=== PATIENT | female | born 1955 | race Caucasian/White ===

== ENCOUNTER 2023-08-15 15:39 | Inpatient (IN) | payer MEDICARE, MEDICAID, SELFPAY ==
[2023-08-15] VITALS (38 sets, daily range): BP systolic 91–124; BP diastolic 56–89; PULSE 82–108; RESP 13–27; TEMP 36.6–36.9; O2SAT 60–97; BMI 21.2
--- NOTE | 2023-08-15 15:41 | XRR_ITS ---
PROCEDURE INFORMATION: Exam: XR Chest Exam date and time: 08/15/2023 4:03 PM Age: 67 years old Clinical indication: Cough and dyspnea; Additional info: Dyspnea/cough TECHNIQUE: Imaging protocol: Radiologic exam of the chest. Views: 1 view. COMPARISON: No relevant prior studies available. FINDINGS: Lungs: Unremarkable. No consolidation. Pleural spaces: Unremarkable. No pleural effusion. No pneumothorax. Heart/Mediastinum: Unremarkable. No cardiomegaly. Bones/joints: No acute findings. XR/XR chest 1V portable [id number] IMPRESSION: No acute findings.
--- NOTE | 2023-08-15 15:48 | ED_ITS ---
Documented by User: Dewey Francisco DO 08/16/23 06:11 HPI - Altered Mental Status 2 General: Chief Complaint: Altered Mental Status Stated Complaint: AMS Time Seen by Provider: 08/15/23 15:40 Source: patient and EMS Mode of arrival: EMS History of Present Illness: 59-year-old female presents to the emerg ency room after EMS was called she was unresponsive at her home. EMS gave Narcan and she aroused became combative. EMS reports that previously she was on high hospice and then took all taken off of it. She has a history of heart failure and diabetes most of which we put together from the medicines that she had in a bag there is no past medical history in our charts and she is not able to tell us anything she was able to tell us that she seen a doctor to mark at the [facility]. We are able to find that she sees [place] [facility] [place] mady trying to get more history from there were not able to get any more history from her because she is not able to speak and only asked her to write she writes and almost unintelligible cursive. She did manage to right [facility] and Narcan. MD complaint: altered mental status Onset (ago): unknown Review of Systems 2 General: Reports: ROS unobtainable due to medical condition PFSH ED 2 PFSH: Medical History History of hyperlipidemia History of hypertension History of type 2 diabetes mellitus Laryngeal cancer Surgical History History of left hip replacement History of laryngectomy Family History Sister CAD (coronary artery disease) Social History (Updated 08/15/23 @ 20:15 by Vijay Tipton MD) Smoking and tobacco/nicotine status: former use of tobacco/nicotine Alcohol intake: never Substance/Drug Use: never Physical Exam 2 Const: GENERAL APPEARANCE: cooperative and comfortable O RIENTATION/CONSCIOUSNESS: Yes awake HENMT: COMMON NORMALS: normocephalic, atraumatic and hearing grossly normal bilaterally HEAD & SCALP: normocephalic and atraumatic Resp: COMMON NORMALS: normal respiratory effort, No retractions, No use of accessory muscles and clear to auscultation bilaterally AUSCULTATION: clear to auscultation bilaterally Cardio: COMMON NORMALS: regular rhythm and No murmurs present (Cardio) R ATE: tachycardic RHYTHM: regular rhythm GI: COMMON NORMALS: Soft to palpation and No hepatosplenomegaly present A USCULTATION: Yes normoactive bowel sounds PALPATION: Yes Soft to palpation, No Tenderness to palpation present (GI), No Guarding due to palpation present (GI) and Yes No hepatosplenomegaly present Extremity: COMMON NORMALS: normal to inspection, capillary refill normal, no clubbing, cyanosis or edema, no calf tenderness and no pedal edema Skin: COMMON NORMALS: no rashes or lesions noted GENERAL SKIN EXAM: no rashes or lesions noted Course 2 Vital Signs: Vital signs: Vital Signs Temperature 97.6 F 08/16/23 04:00 Pulse Rate 91 08/16/23 04:41 Respiratory Rate 16 08/16/23 04:00 Blood Pressure 99/62 08/16/23 04:00 Pulse Oximetry 95 08/16/23 04:00 Oxygen Delivery Me thod Room Air 08/15/23 23:43 Fraction of Inspir ed Oxygen 21 08/15/23 22:05 MDM - Altered Mental Status Medical Decision Making Care signed out to Dr. Best at change of shift. See final notes for diagnosis and disposition. Patient was altered drug screen and urinalysis were ordered. She has renal failure and is unknown if this is acute or chronic so CT of the abdomen was done. CT had concern for acute cholecystitis, however she has no pain in her right upper quadrant no elevation in her LFTs. She does have a UTI so Rocephin was given. She is also been given a liter of normal saline bolus. Her mentation seems much improved when I go into the room to talk to her she is eating food and the CT also said she had some subacute pelvic fractures and an acetabular fracture. She does point to some pain in her back but no real acetabular pain. She is in no distress at this time. Consultation: I spoke with Dr. Hussein about the patient. He reviewed the films and feels this would be a nonoperative type fracture. Assessment and plan: UTI Urinary tract infection Acute encephalopathy -I discussed the patient with the hospitalist on-call who is admitting the patient. - Discussed findings and plan with patient. Answered any questions. - All laboratory values were reviewed and interpreted personally by myself, the ER physician - All imaging was reviewed and interpreted personally by myself, the ER physician. - Evaluation and treatment of this problem were appropriate in the emergency setting Lab Data 08/16/23 03:02 08/16/23 03:02 Radiology Impressions Chest X-Ray 08/15/23 15:41 IMPRESSION: No acute findings. Head CT 08/15/23 16:09 IMPRESSION: 1. No acute intracranial abnormality. Abdomen/Pelvis CT 08/15/23 18:01 IMPRESSION: 1. Suspected early acute cholecystitis. Correlation with biliary labs and right upper quadrant may be helpful. 2. Subacute periprosthetic fracture of the left acetabulum. Orthopedic evaluation is recommended. 3. Subacute displaced fractures of the superior and inferior pubic rami on the left as well as bilateral sacral insufficiency fractures. Laboratory Results WBC 18.38 10^3/uL (3.29-11.43) H 08/15/23 17:15 RBC 4.18 10^6/uL (3.85-5.65) 08/15/23 17:15 Hgb 12.60 g/dL (11.27-16.99) 08/15/23 17:15 Hct 38.2 % (36-47) 08/15/23 17:15 MCV 91.4 fl (85-98) 08/15/23 17:15 MCH 30.1 pg (27-33) 08/15/23 17:15 MCHC 33.0 g/dL (30-55) 08/15/23 17:15 RDW 14.8 % (12.1-15.1) 08/15/23 17:15 Plt Count 172 10^3/cmm (157-399) 08/15/23 17:15 MPV 11.5 fL (7.4-10.4) H 08/15/23 17:15 Neut % (Auto) 85.5 % 08/15/23 17:15 Lymph % (Auto) 4.5 % 08/15/23 17:15 Avery % (Auto) 5.6 % 08/15/23 17:15 Eos % (Auto) 0.3 % 08/15/23 17:15 Baso % (Auto) 0.2 % 08/15/23 17:15 Neut # (Auto) 15.72 10^3/uL (1.8-7.7) H 08/15/23 17:15 Lymph # (Auto) 0.8 10^3/uL (0.8-4.8) 08/15/23 17:15 Avery # (Auto) 1.0 10^3/uL (0.2-0.9) H 08/15/23 17:15 Eos # (Auto) 0.1 10^3/uL (0.0-0.8) 08/15/23 17:15 Baso # (Auto) 0.0 10^3/uL (0.0-0.1) 08/15/23 17:15 Nucleated RBC % (auto) 0 % 08/15/23 17:15 Nucleated RBCs # 0.0 /100WBC 08/15/23 17:15 Sodium 137 mmol/L (136-145) 08/15/23 17:15 Potassium 4.7 mmol/L (3.5-5.1) 08/15/23 17:15 Chloride 97 mmol/L (98-107) L 08/15/23 17:15 Carbon Dioxide 23 mmol/L (22-29) 08/15/23 17:15 Anion Gap 21.7 (5-19) H 08/15/23 17:15 BUN 45 mg/dL (8-23) H 08/15/23 17:15 Creatinine 2.7 mg/dL (0.5-0.9) H 08/15/23 17:15 GFR Calculation 17.5 mL/min (90-130) L 08/15/23 17:15 Glucose 178 mg/dL (65-115) H 08/15/23 17:15 POC Glucose 124 mg/dL (70-110) H 08/15/23 16:08 Estimat Average Glucose 189 08/15/23 17:15 Hemoglobin A1c 8.2 % (4.0-6.0) H 08/15/23 17:15 Calculated Osmolality 300 mOsm/kg (285-295) H 08/15/23 17:15 Calcium 8.3 mg/dL (8.5-10.5) L 08/15/23 17:15 Phosphorus 4.4 mg/dL (2.5-4.5) 08/15/23 19:12 Magnesium 1.9 mg/dL (1.7-2.3) 08/15/23 19:12 Total Bilirubin 0.5 mg/dL (0.15-1.2) 08/15/23 17:15 AST 18 U/L (0-32) 08/15/23 17:15 ALT 12 U/L (0-33) 08/15/23 17:15 Alkaline Phosphatase 323 U/L (35-105) H 08/15/23 17:15 Creatine Kinase 70 U/L (26-192) 08/15/23 19:12 Troponin T Baseline < 6 ng/L (0-10) 08/15/23 17:15 Troponin T 120 Minute 6.00 ng/L (0-10) 08/15/23 19:12 Delta Troponin T 0.77801 ABS# (0-10) 08/15/23 19:12 C-Reactive Protein 534.4 mg/L (0.0-4.9) H 08/15/23 19:12 Total Protein 6.9 g/dL (6.6-8.7) 08/15/23 17:15 Albumin 4.1 g/dL (3.5-5.2) 08/15/23 17:15 Globulin 2.8 g/dL (1.3-4.6) 08/15/23 17:15 Procalcitonin 1.31 ng/mL (0-0.5) H 08/15/23 19:12 TSH 4.31 uIU/mL (0.27-4.20) H 08/15/23 19:12 Urine Color Dark yellow (Yellow) 08/15/23 18:07 Urine Appearance Hazy (CLEAR) A 08/15/23 18:07 Urine pH 5 (5-7) 08/15/23 18:07 Ur Specific Reform 1.015 (1.005-1.030) 08/15/23 18:07 Urine Protein Neg (Negative) 08/15/23 18:07 Urine Glucose (UA) Norm (Normal) 08/15/23 18:07 Urine Ketones Negative (Negative) 08/15/23 18:07 Urine Blood Neg (Negative) 08/15/23 18:07 Urine Nitrate Negative (Negative) 08/15/23 18:07 Urine Bilirubin 1+ (Negative) H 08/15/23 18:07 Urine Urobilinogen Norm mg/dL (Negative) 08/15/23 18:07 Ur Leukocyte Esterase 2+ (Negative) H 08/15/23 18:07 Urine RBC 0-4 /hpf (0-2) H 08/15/23 18:07 Urine WBC 15-25 /hpf (0-5) H 08/15/23 18:07 Ur Squamous Epith Cells 15-25 /hpf (0-5) H 08/15/23 18:07 Amorphous Sediment Not Reportable 08/15/23 18:07 Urine Bacteria 1+ /hpf (NONE) H 08/15/23 18:07 Urine Opiates Screen Positive ng/mL (Negative) H 08/15/23 18:07 Ur Barbiturates Screen Negative ng/mL (Negative) 08/15/23 18:07 Ur Phencyclidine Scrn Negative ng/mL (Negative) 08/15/23 18:07 Ur Amphetamines Screen Negative ng/mL (Negative) 08/15/23 18:07 U Benzodiazepines Scrn Positive ng/mL (Negative) H 08/15/23 18:07 Urine Cocaine Screen Negative ng/mL (Negative) 08/15/23 18:07 U Marijuana (THC) Screen Negative ng/mL (Negative) 08/15/23 18:07 Ethyl Alcohol < 10 mg/dL (0-10) 08/15/23 19:12 Serum Ketones Negative (Negative) 08/15/23 17:15 Discharge Plan Discharge Patient Disposition: Admitted As Inpatient Admit Provider: Vijay Tipton Clinical Impression: Urinary tract infection, Encephalopathy acute, Renal failure Condition: Stable Coding Level of Care Code ED Belt Buckle Maker for Chg Fwd Documented by User: Mi Best MD 08/15/23 19:39 HPI - Altered Mental Status 2 General: Chief Complaint: Altered Mental Status Stated Complaint: AMS Time Seen by Provider: 08/15/23 15:40 PFSH ED 2 PFSH: Medical History History of hyperlipidemia History of hypertension History of type 2 diabetes mellitus Laryngeal cancer Surgical History History of left hip replacement History of laryngectomy Family History Sister CAD (coronary artery disease) Social History (Updated 08/15/23 @ 20:15 by Vijay Tipton MD) Smoking and tobacco/nicotine status: former use of tobacco/nicotine Alcohol intake: never Substance/Drug Use: never Course 2 Vital Signs: Vital signs: Vital Signs Temperature 97.6 F 08/16/23 04:00 Pulse Rate 91 08/16/23 04:41 Respiratory Rate 16 08/16/23 04:00 Blood Pressure 99/62 08/16/23 04:00 Pulse Oximetry 95 08/16/23 04:00 Oxygen Delivery Me thod Room Air 08/15/23 23:43 Fraction of Inspir ed Oxygen 21 08/15/23 22:05 MDM - Altered Mental Status Medical Decision Making Patient was altered drug screen and urinalysis were ordered. She has renal failure and is unknown if this is acute or chronic so CT of the abdomen was done. CT had concern for acute cholecystitis, however she has no pain in her right upper quadrant no elevation in her LFTs. She does have a UTI so Rocephin was given. She is also been given a liter of normal saline bolus. Her mentation seems much improved when I go into the room to talk to her she is eating food and the CT also said she had some subacute pelvic fractures and an acetabular fracture. She does point to some pain in her back but no real acetabular pain. She is in no distress at this time. Consultation: I spoke with Dr. Hussein about the patient. He reviewed the films and feels this would be a nonoperative type fracture. Assessment and plan: UTI Urinary tract infection Acute encephalopathy -I discussed the patient with the hospitalist on-call who is admitting the patient. - Discussed findings and plan with patient. Answered any questions. - All laboratory values were reviewed and interpreted personally by myself, the ER physician - All imaging was reviewed and interpreted personally by myself, the ER physician. - Evaluation and treatment of this problem were appropriate in the emergency setting Lab Data 08/16/23 03:02 08/16/23 03:02 Radiology Impressions Chest X-Ray 08/15/23 15:41 IMPRESSION: No acute findings. Head CT 08/15/23 16:09 IMPRESSION: 1. No acute intracranial abnormality. Abdomen/Pelvis CT 08/15/23 18:01 IMPRESSION: 1. Suspected early acute cholecystitis. Correlation with biliary labs and right upper quadrant may be helpful. 2. Subacute periprosthetic fracture of the left acetabulum. Orthopedic evaluation is recommended. 3. Subacute displaced fractures of the superior and inferior pubic rami on the left as well as bilateral sacral insufficiency fractures. Laboratory Results WBC 18.38 10^3/uL (3.29-11.43) H 08/15/23 17:15 RBC 4.18 10^6/uL (3.85-5.65) 08/15/23 17:15 Hgb 12.60 g/dL (11.27-16.99) 08/15/23 17:15 Hct 38.2 % (36-47) 08/15/23 17:15 MCV 91.4 fl (85-98) 08/15/23 17:15 MCH 30.1 pg (27-33) 08/15/23 17:15 MCHC 33.0 g/dL (30-55) 08/15/23 17:15 RDW 14.8 % (12.1-15.1) 08/15/23 17:15 Plt Count 172 10^3/cmm (157-399) 08/15/23 17:15 MPV 11.5 fL (7.4-10.4) H 08/15/23 17:15 Neut % (Auto) 85.5 % 08/15/23 17:15 Lymph % (Auto) 4.5 % 08/15/23 17:15 Avery % (Auto) 5.6 % 08/15/23 17:15 Eos % (Auto) 0.3 % 08/15/23 17:15 Baso % (Auto) 0.2 % 08/15/23 17:15 Neut # (Auto) 15.72 10^3/uL (1.8-7.7) H 08/15/23 17:15 Lymph # (Auto) 0.8 10^3/uL (0.8-4.8) 08/15/23 17:15 Avery # (Auto) 1.0 10^3/uL (0.2-0.9) H 08/15/23 17:15 Eos # (Auto) 0.1 10^3/uL (0.0-0.8) 08/15/23 17:15 Baso # (Auto) 0.0 10^3/uL (0.0-0.1) 08/15/23 17:15 Nucleated RBC % (auto) 0 % 08/15/23 17:15 Nucleated RBCs # 0.0 /100WBC 08/15/23 17:15 Sodium 137 mmol/L (136-145) 08/15/23 17:15 Potassium 4.7 mmol/L (3.5-5.1) 08/15/23 17:15 Chloride 97 mmol/L (98-107) L 08/15/23 17:15 Carbon Dioxide 23 mmol/L (22-29) 08/15/23 17:15 Anion Gap 21.7 (5-19) H 08/15/23 17:15 BUN 45 mg/dL (8-23) H 08/15/23 17:15 Creatinine 2.7 mg/dL (0.5-0.9) H 08/15/23 17:15 GFR Calculation 17.5 mL/min (90-130) L 08/15/23 17:15 Glucose 178 mg/dL (65-115) H 08/15/23 17:15 POC Glucose 124 mg/dL (70-110) H 08/15/23 16:08 Estimat Average Glucose 189 08/15/23 17:15 Hemoglobin A1c 8.2 % (4.0-6.0) H 08/15/23 17:15 Calculated Osmolality 300 mOsm/kg (285-295) H 08/15/23 17:15 Calcium 8.3 mg/dL (8.5-10.5) L 08/15/23 17:15 Phosphorus 4.4 mg/dL (2.5-4.5) 08/15/23 19:12 Magnesium 1.9 mg/dL (1.7-2.3) 08/15/23 19:12 Total Bilirubin 0.5 mg/dL (0.15-1.2) 08/15/23 17:15 AST 18 U/L (0-32) 08/15/23 17:15 ALT 12 U/L (0-33) 08/15/23 17:15 Alkaline Phosphatase 323 U/L (35-105) H 08/15/23 17:15 Creatine Kinase 70 U/L (26-192) 08/15/23 19:12 Troponin T Baseline < 6 ng/L (0-10) 08/15/23 17:15 Troponin T 120 Minute 6.00 ng/L (0-10) 08/15/23 19:12 Delta Troponin T 0.93275 ABS# (0-10) 08/15/23 19:12 C-Reactive Protein 534.4 mg/L (0.0-4.9) H 08/15/23 19:12 Total Protein 6.9 g/dL (6.6-8.7) 08/15/23 17:15 Albumin 4.1 g/dL (3.5-5.2) 08/15/23 17:15 Globulin 2.8 g/dL (1.3-4.6) 08/15/23 17:15 Procalcitonin 1.31 ng/mL (0-0.5) H 08/15/23 19:12 TSH 4.31 uIU/mL (0.27-4.20) H 08/15/23 19:12 Urine Color Dark yellow (Yellow) 08/15/23 18:07 Urine Appearance Hazy (CLEAR) A 08/15/23 18:07 Urine pH 5 (5-7) 08/15/23 18:07 Ur Specific Reform 1.015 (1.005-1.030) 08/15/23 18:07 Urine Protein Neg (Negative) 08/15/23 18:07 Urine Glucose (UA) Norm (Normal) 08/15/23 18:07 Urine Ketones Negative (Negative) 08/15/23 18:07 Urine Blood Neg (Negative) 08/15/23 18:07 Urine Nitrate Negative (Negative) 08/15/23 18:07 Urine Bilirubin 1+ (Negative) H 08/15/23 18:07 Urine Urobilinogen Norm mg/dL (Negative) 08/15/23 18:07 Ur Leukocyte Esterase 2+ (Negative) H 08/15/23 18:07 Urine RBC 0-4 /hpf (0-2) H 08/15/23 18:07 Urine WBC 15-25 /hpf (0-5) H 08/15/23 18:07 Ur Squamous Epith Cells 15-25 /hpf (0-5) H 08/15/23 18:07 Amorphous Sediment Not Reportable 08/15/23 18:07 Urine Bacteria 1+ /hpf (NONE) H 08/15/23 18:07 Urine Opiates Screen Positive ng/mL (Negative) H 08/15/23 18:07 Ur Barbiturates Screen Negative ng/mL (Negative) 08/15/23 18:07 Ur Phencyclidine Scrn Negative ng/mL (Negative) 08/15/23 18:07 Ur Amphetamines Screen Negative ng/mL (Negative) 08/15/23 18:07 U Benzodiazepines Scrn Positive ng/mL (Negative) H 08/15/23 18:07 Urine Cocaine Screen Negative ng/mL (Negative) 08/15/23 18:07 U Marijuana (THC) Screen Negative ng/mL (Negative) 08/15/23 18:07 Ethyl Alcohol < 10 mg/dL (0-10) 08/15/23 19:12 Serum Ketones Negative (Negative) 08/15/23 17:15 All radiology interpretation(s) finalized by discharge Discharge Plan Discharge Patient Disposition: Admitted As Inpatient Admit Provider: Vijay Tipton Clinical Impression: Urinary tract infection, Encephalopathy acute, Renal failure Condition: Stable Coding Level of Care Code ED Belt Buckle Maker for Shayna De La Paz
--- NOTE | 2023-08-15 15:50 | ECG_ITS ---
[facility] Test Date: 2023-08-15 Pat Name: Ruth Shen Department: Room: Gender: Female Archival Records Clerk: : 1955 Requested By: Dewey Davis Order Number: [id number] Delilah MD: Cecil Smith M.D. Measurements Intervals [place] Rate: 108 P: 56 CA: 169 QRS: 72 QRSD: 85 T: 57 QT: 362 QTc: 485 Interpretive Statements SINUS TACHYCARDIA LOW QRS VOLTAGE IN PRECORDIAL LEADS [QRS DEFLECTION < 1.0 mV IN CHEST LEADS] ABNORMAL RHYTHM ECG No previous ECG available for comparison Electronically Signed On 08-15-2023 23:21:54 CDT by Cecil Smith M.D. [id number]
--- NOTE | 2023-08-15 16:09 | CTR_ITS ---
PROCEDURE INFORMATION: Exam: CT Head Without Contrast Exam date and time: 08/15/2023 4:28 PM Age: 67 years old Clinical indication: Altered mental status/memory loss; Additional info: AMS TECHNIQUE: Imaging protocol: Computed tomography of the head without contrast. Radiation optimization: All CT scans at this facility use at least one of these dose optimization techniques: automated exposure control; mA and/or kV adjustment per patient size (includes targeted exams where dose is matched to clinical indication); or iterative reconstruction. COMPARISON: No relevant prior studies available. RADIATION DOSE METRICS: Total DLP (mGy-cm): 1068 FINDINGS: Brain: Sequela of moderate chronic microvascular ischemic changes with periventricular and deep white matter hypoattenuation. Chronic right basal ganglia lacunar infarct versus dilated perivascular space. Butler-white differentiation is otherwise maintained. No evidence of intra-axial or extra-axial hemorrhage. No mass effect or midline shift. Basilar cisterns are patent. Cerebral ventricles: No hydrocephalus. Paranasal sinuses: The visualized paranasal sinuses are well aerated. Mastoid air cells: The visualized mastoids and middle ears are clear. Bones: Unremarkable. No acute fracture. Soft tissues: No gross soft tissue abnormality. CT/CT head wo con* [id number] IMPRESSION: 1. No acute intracranial abnormality.
[2023-08-15 16:11] LABS: Glucose Point of Care 124 mg/dL (70-110)
[2023-08-15 17:27] LABS: Basophils % 0.2 %; Eosinophils # 0.1 10^3/uL (0.0-0.8); Eosinophils % 0.3 %; Hematocrit 38.2 % (36-47); Lymphocytes # 0.8 10^3/uL (0.8-4.8); Lymphocytes % 4.5 %; Mean Corpuscular Hemoglobin 30.1 pg (27-33); Mean Corpuscular Volume 91.4 fl (85-98); Mean Platelet Volume 11.5 fL (7.4-10.4); Monocytes % 5.6 %; Neutrophils # 15.72 10^3/uL (1.8-7.7); Neutrophils % 85.5 %; Nucleated Red Blood Cells % 0 %; Platelet Count 172 10^3/cmm (157-399); Red Blood Count 4.18 10^6/uL (3.85-5.65); Red Cell Distribution Width 14.8 % (12.1-15.1); White Blood Count 18.38 10^3/uL (3.29-11.43)
[2023-08-15 17:43] LABS: Troponin(5th) Baseline < 6 ng/L (0-10)
--- NOTE | 2023-08-15 17:51 | ECG_ITS ---
[facility] Test Date: 2023-08-15 Pat Name: Ruth Shen Department: Room: Gender: Female Manpower Development Specialist Manager: : 1955 Requested By: Dewey Davis Order Number: [id number] Delilah MD: Cecil Smith M.D. Measurements Intervals [place] Rate: 90 P: 54 MS: 171 QRS: 60 QRSD: 98 T: 44 QT: 407 QTc: 499 Interpretive Statements SINUS RHYTHM LOW QRS VOLTAGE IN PRECORDIAL LEADS [QRS DEFLECTION < 1.0 mV IN CHEST LEADS] Compared to ECG 08/15/2023 15:50:47 Sinus tachycardia no longer present Electronically Signed On 08-15-2023 23:23:54 CDT by Cecil Smith M.D. [id number]
[2023-08-15 17:55] LABS: Alanine Aminotransferase 12 U/L (0-33); Albumin Level 4.1 g/dL (3.5-5.2); Alkaline Phosphatase 323 U/L (35-105); Anion Gap 21.7 (5-19); Aspartate Amino Transferase 18 U/L (0-32); Blood Urea Nitrogen 45 mg/dL (8-23); Calcium 8.3 mg/dL (8.5-10.5); Carbon Dioxide 23 mmol/L (22-29); Chloride 97 mmol/L (98-107); Creatinine Clr Calc Pharmacy 20.0667; Globulin 2.8 g/dL (1.3-4.6); Glomerular Filtration Rate 17.5 mL/min (90-130); Glucose 178 mg/dL (65-115); Osmolality Calculated 300 mOsm/kg (285-295); Potassium 4.7 mmol/L (3.5-5.1); Sodium 137 mmol/L (136-145); Total Bilirubin 0.5 mg/dL (0.15-1.2); Total Protein 6.9 g/dL (6.6-8.7)
--- NOTE | 2023-08-15 18:01 | CTR_ITS ---
PROCEDURE INFORMATION: Exam: CT Abdomen And Pelvis Without Contrast Exam date and time: 08/15/2023 6:17 PM Age: 67 years old Clinical indication: Screening exam; Other: Acute kidney injury TECHNIQUE: Imaging protocol: Computed tomography of the abdomen and pelvis without contrast. Radiation optimization: All CT scans at this facility use at least one of these dose optimization techniques: automated exposure control; mA and/or kV adjustment per patient size (includes targeted exams where dose is matched to clinical indication); or iterative reconstruction. COMPARISON: CR XR chest 1V portable [id number] 08/15/2023 4:03 PM RADIATION DOSE METRICS: Total DLP (mGy-cm): 420.01 FINDINGS: Lungs: Subsegmental bibasilar atelectasis. The visualized lung bases are otherwise clear. Diaphragm: No evidence of diaphragmatic defect. Liver: No evidence of focal hepatic lesion within limitation of a noncontrast exam. Gallbladder and bile ducts: Gallbladder is distended with mild wall thickening and pericholecystic haziness suspicious for acute cholecystitis. No evidence of intra-hepatic or extra-hepatic biliary dilatation. Pancreas: Grossly unremarkable. Spleen: Grossly unremarkable. Adrenal glands: Grossly unremarkable. Kidneys and ureters: No gross renal parenchymal abnormality. No evidence of hydronephrosis or ureteral stone. Stomach and bowel: Few scattered colonic diverticula without evidence of acute diverticulitis. No evidence of bowel obstruction or perienteric inflammatory changes. Appendix: Normal appendix. Intraperitoneal space: No evidence of free air or fluid collection. Vasculature: Extensive atherosclerosis without evidence of aneurysmal dilitation of abdominal aorta. Lymph nodes: No evidence of adenopathy. Urinary bladder: Grossly unremarkable within limitations of beam hardening artifact. Reproductive: Grossly unremarkable. Bones/joints: Subacute displaced superior and inferior pubic ramus fractures. The left superior pubic ramus fracture extends into the anterior column of the acetabulum where there is a periprosthetic component. Subacute minimally-mildly displaced sacral insufficiency fractures bilaterally. Additional subacute minimally displaced fracture of the left pubic body. Total right hip arthroplasty without evidence of acute complication within the field of view. Soft tissues: No evidence of fluid collection or hematoma in the superficial soft tissues. CT/CT kidney stone [id number] IMPRESSION: 1. Suspected early acute cholecystitis. Correlation with biliary labs and right upper quadrant may be helpful. 2. Subacute periprosthetic fracture of the left acetabulum. Orthopedic evaluation is recommended. 3. Subacute displaced fractures of the superior and inferior pubic rami on the left as well as bilateral sacral insufficiency fractures.
[2023-08-15 18:15] LABS: Slide Review Slide Review Perform
--- NOTE | 2023-08-15 18:16 | PC.NURSE ---
PT REQUESTED HELP TO GET UP TO BEDSIDE COMMODE. PT ABLE TO GET UP WITH 2 PERSON ASSIST AND IS CALM AND COOPERATIVE. PT IS ORIENTED TO, NAME, PLACE AND SITUATION AT THIS TIME. PT BREATHING EVEN AND UNLABORED. PT ASSISTED BACK INTO BED AND REPORTS FEELING BETTER AND COMFORTABLE. PT CONNECTED TO BEDSIDE MONITOR.
[2023-08-15 18:43] LABS: Amphetamines Screen Urine Negative (Negative); Barbiturates Screen Urine Negative (Negative); Benzodiazepines Screen Urine Positive (Negative); Cocaine Screen Urine Negative (Negative); Opiate Screen Urine Positive (Negative); PCP Screen Urine Negative (Negative); THC Screen Urine Negative (Negative)
[2023-08-15] MEDS: sodium chloride 0.9% 500 ML 999 ML IV (18:44)
[2023-08-15 18:45] LABS: Add Urine Microscopic? YES; Bilirubin Urine 1+ (Negative); Blood Urine Neg (Negative); Glucose Urine UA Norm (Normal); Ketones Urine Negative (Negative); Leukocyte Esterase Urine 2+ (Negative); Nitrate Urine Negative (Negative); Protein Urine Neg (Negative); Specific Gravity, Urine 1.015 (1.005-1.030); Urine Appearance Hazy (CLEAR); Urine Color Dark Yellow (Yellow); Urobilinogen Urine Norm (Negative); pH Urine 5 (5-7)
[2023-08-15 18:46] LABS: Bacteria Urine 1+ /hpf; RBC Urine 0-4 /hpf (0-2); Squamous Epithelial Cell Urine 15-25 /hpf (0-5); WBC Urine 15-25 /hpf (0-5)
[2023-08-15 18:47] LABS: Add Urine Culture? No
[2023-08-15] MEDS: cefTRIAXone 1,000 MG in sodium chloride 0.9% (plus) 50 ML 100 MG IV (19:10)
[2023-08-15 19:38] LABS: Troponin 5 2HR Delta 0.00001 ABS# (0-10)
--- NOTE | 2023-08-15 20:09 | P.HP_ITS ---
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 Currently patient is alert and oriented to person, to place, not to time she follows all commands, it is difficult at times to interpret what she is saying given her laryngectomy, we communicate via paper and pen, and reading her lips. She tells me roughly 2 weeks ago she slipped on wet grass, and fell, was on the ground for about a day, this was outside her house, she had left hip pain and low back pain, she tells me that she came here and they did nothing, but it see that she ever came here to [facility]. She tells me that she lives currently by herself, but her daughter used to live with her. Currently her biggest complaint is left hip pain low back pain, she has been having it since her fall, she tells me she has trouble ambulating, denies any fevers, no chills, no cough, no chest pain, she denies a CAD history, denies a history of COPD prior history of smoking, she denies any IV drug use, denies any alcohol use, she tells me that she normally takes gabapentin for her pain, she uses 900 mg every 3 days, she is not due to take it today, she did have meloxicam in her back, she tells me that she takes it regularly for her pain, her urine toxicology screen was positive for opiates, and benzodiazepines I confronted her about this, if she gets a prescription for benzo/opiates however I was unable to get a clear answer from her, she tells me she has type 2 diabetes mellitus, she uses Toujeo, 14 units, she is not exactly sure if she used it today, she does have multiple blood pressure medications, according to ER provider, EMS was called out to patient's home as she was unresponsive at home, when she was given Narcan, she became combative, there are some question about her being on hospice? I questioned her about this, but I was not really able to get a clear answer for her potentially she was taken off of it at some point, why she was on hospice I asked her it is not exactly clear, according to ER provider, patient's voice electrolarynx is broken Review of Systems 2 Card: Denies: chest pain Resp: Denies: dyspnea GI: Denies: abdominal pain : Reports: flank pain Musc: Reports: back pain and joint pain PFSH Acute 2 PFSH: Medical History History of hyperlipidemia History of hypertension History of type 2 diabetes mellitus Laryngeal cancer Surgical History History of left hip replacement History of laryngectomy Family History Sister CAD (coronary artery disease) Social History (Updated 08/15/23 @ 20:15 by Vijay Tipton MD) Smoking and tobacco/nicotine status: former use of tobacco/nicotine Alcohol intake: never Substance/Drug Use: never Vitals/I&O/Wt Last Vital Signs Temp 97.9 F 08/15/23 15:41 Pulse 83 08/15/23 18:49 Resp 16 08/15/23 18:00 BP 112/89 08/15/23 18:30 Pulse Ox 60 L 08/15/23 17:40 O2 Del Method Room Air 08/15/23 15:41 Weight last 48 hrs Weight 63.503 kg Physical Exam 2 Const: COMMON NORMALS: no acute distress ORIENTATION/CONSCIOUSNESS: Yes awake, Yes oriented to person and Yes oriented to place; not oriented to time HENMT: COMMON NORMALS: normocephalic HEAD & SCALP: normocephalic Eye: COMMON NORMALS: Equal, round and reactive pupils present and EOMs intact bilaterally Neck/C-Spine: COMMON NORMALS: no JVD OTHER: Stoma present Lymph: LYMPHATIC: no lymphadenopathy noted Resp: COMMON NORMALS: normal respiratory effort, No retractions, No use of accessory muscles and clear to auscultation bilaterally AUSCULTATION: clear to auscultation bilaterally Cardio: COMMON NORMALS: regular rate, regular rhythm, S1 normal heart sound present and S2 normal heart sound present RATE: regular rate RHYTHM: r egular rhythm HEART SOUNDS: S1 normal heart sound present and S2 normal heart sound present GI: COMMON NORMALS: Normal to inspection, nondistended, normoactive bowel sounds present, Soft to palpation and non-tender Back/Pelvis: OTHER: Left hip pain to palpation, left CVA tenderness, left low back pain, paraspinal muscle tenderness to palpation, Extremity: COMMON NORMALS: no calf tenderness and no pedal edema Neuro: COMMON NORMALS: patient oriented x3, CN's II-XII intact bilaterally and moves all extremities OTHER: Moves all extremities, but does have the lower extremity pain, to range of motion Psych: COMMON NORMALS: mental status grossly normal Data 08/15/23 17:15 08/15/23 17:15 A&P Assessment and plan (1) Acute kidney injury: (2) Urinary tract infection: (3) Acute cholecystitis: (4) Periprosthetic fracture around internal prosthetic left hip joint: (5) Pubic ramus fracture: (6) Altered mental status: (7) Dehydration: (8) Sacral insufficiency fracture: Plan Altered mental status -Currently no focal neurologic deficits she is able to follow commands, no facial droop, hard to discern she has slurring of her words ? CT head within normal limits -Potential polypharmacy, she takes gabapentin 900 mg every 3 days, she denies using more medication than prescribed, she is also on meloxicam, urine toxicology screen was positive for opiates and benzodiazepines although she denies their use, and I cannot even see any prescription bottles in her bag -Neurochecks, aspiration precautions, NIH stroke scale -Possible UTI, acute cholecystitis playing a role Acute renal failure ? Baseline kidney function unknown, does have type 2 diabetes mellitus ? Does use meloxicam at home potentially playing a role? ? Place Daly catheter monitor urine output ? IV fluids UTI ? Urine cultures, blood cultures ? Does have a left CVA tenderness, but this is also location of her left acetabular fracture, sacral insufficiency fractures, could be acute pyelonephritis, has received Rocephin in the emergency room ? Continue ciprofloxacin Radiographic evidence of early acute cholecystitis ? Elevated alk phos ? Blood cultures, CRP, Pro-Kp ? Will switch antibiotic coverage with ciprofloxacin, Flagyl Subacute periprosthetic fracture of the left acetabulum. -ER provider spoke to Dr. Hussein, who recommended that currently there is no surgical intervention, weightbearing as tolerated ? For now keep on bedrest, PT OT -Pain control morphine Subacute displaced fractures of the superior and inferior pubic rami on the left as well as bilateral sacral insufficiency fractures ? Morphine for pain control Dehydration IV fluids Type 2 diabetes mellitus, low-dose sliding scale History of laryngeal cancer status post laryngectomy History of hospice? Will need to get more records tomorrow Full code Lovenox for DVT prophylaxis Attestations 2 Medical Necessity Statement*: Patient requires hospitalization, inpatient, greater than 2 midnights, for fall, acute renal failure, left periprosthetic left acetabular fracture, pubic rami fracture, UTI, cholecystitis, altered mental status Diagnoses Acute kidney injury N17.9 Urinary tract infection N39.0 Acute cholecystitis K81.0 Periprosthetic fracture around internal prosthetic left hip joint M97.02XA Pubic ramus fracture S32.599A Altered mental status R41.82 Dehydration E86.0 Sacral insufficiency fracture M84.48XA
[2023-08-15 21:12] LABS: Magnesium 1.9 mg/dL (1.7-2.3); Phosphorus 4.4 mg/dL (2.5-4.5)
[2023-08-15 21:19] LABS: Procalcitonin 1.31 ng/mL (0-0.5)
--- NOTE | 2023-08-15 21:41 | ECG_ITS ---
[facility] Test Date: 2023-08-15 Pat Name: Ruth Shen Department: Room: 256 Gender: Female Staff Educator: : 1955 Requested By: Dewey Davis Order Number: [id number] Delilah MD: Cecil Smith M.D. Measurements Intervals [place] Rate: 82 P: 42 CO: 174 QRS: 62 QRSD: 85 T: 37 QT: 429 QTc: 503 Interpretive Statements SINUS RHYTHM LOW QRS VOLTAGE IN PRECORDIAL LEADS [QRS DEFLECTION < 1.0 mV IN CHEST LEADS] Compared to ECG 08/15/2023 17:51:29 No significant changes Electronically Signed On 08-15-2023 23:23:38 CDT by Cecil Smith M.D. [id number]
[2023-08-15 22:00] LABS: Ketone (Acetest) Serum Negative (Negative)
[2023-08-15 22:23] LABS: Creatine Phosphokinase 70 U/L (26-192); Thyroid Stimulating Hormone 4.31 uIU/mL (0.27-4.20)
[2023-08-15 22:30] LABS: Alcohol Level < 10 mg/dL (0-10)
[2023-08-15 22:37] LABS: Glucose Point of Care 174 mg/dL (70-110)
[2023-08-15 22:44] LABS: C Reactive Protein 534.4 mg/L (0.0-4.9)
[2023-08-15] MEDS: enoxaparin 40 mg/0.4 mL Syringe SUBCUT (22:45)
[2023-08-15] MEDS: pantoprazole 40 mg SDV IVP (22:46)
[2023-08-15] MEDS: metroNIDAZOLE IV 500 MG/100 ML PREMIX 100 MG IV (22:46)
[2023-08-15] MEDS: sodium chloride 0.9% 1,000 ML 125 ML IV (22:48)
[2023-08-15 23:08] LABS: Estmated Average Glucose 189; Hemoglobin A1C 8.2 % (4.0-6.0)
[2023-08-15 23:57] LABS: Troponin 5 6HR Delta 0.00001 ng/L (0-12)
[2023-08-15 23:59] LABS: Lactic Sepsis W/Reflex 2.2 mmol/L (0.5-2.2)
[2023-08-16 01:23] LABS: Reflex Lactate Order REFLEX LACTIC ORDERD
[2023-08-16 01:37] VITALS: PULSE 77
[2023-08-16 03:42] LABS: Basophils # 0.1 10^3/uL (0.0-0.1); Basophils % 0.4 %; Eosinophils # 0.2 10^3/uL (0.0-0.8); Eosinophils % 1.8 %; Hematocrit 34.2 % (36-47); Lymphocytes # 1.4 10^3/uL (0.8-4.8); Lymphocytes % 11.2 %; Mean Corpuscular HGB Conc 32.5 g/dL (30-55); Mean Corpuscular Hemoglobin 29.8 pg (27-33); Mean Corpuscular Volume 91.7 fl (85-98); Mean Platelet Volume 11.2 fL (7.4-10.4); Monocytes # 0.4 10^3/uL (0.2-0.9); Monocytes % 3.6 %; Neutrophils # 9.77 10^3/uL (1.8-7.7); Neutrophils % 78.8 %; Nucleated Red Blood Cells % 0 %; Platelet Count 169 10^3/cmm (157-399); Red Blood Count 3.73 10^6/uL (3.85-5.65); Red Cell Distribution Width 14.9 % (12.1-15.1); White Blood Count 12.39 10^3/uL (3.29-11.43)
[2023-08-16 04:00] VITALS: BP 99/62; PULSE 93; RESP 16; TEMP 36.4; O2SAT 95
[2023-08-16 04:07] LABS: Anion Gap 18.1 (5-19); Blood Urea Nitrogen 50 mg/dL (8-23); Calcium 8.1 mg/dL (8.5-10.5); Carbon Dioxide 23 mmol/L (22-29); Chloride 102 mmol/L (98-107); Creatinine Clr Calc Pharmacy 19.4041; Glomerular Filtration Rate 17.5 mL/min (90-130); Glucose 122 mg/dL (65-115); Osmolality Calculated 303 mOsm/kg (285-295); Potassium 4.1 mmol/L (3.5-5.1); Sodium 139 mmol/L (136-145)
[2023-08-16 04:32] LABS: Slide Review Slide Review Perform
[2023-08-16 04:41] VITALS: PULSE 91
[2023-08-16] MEDS: sodium chloride 0.9% 1,000 ML 125 ML IV ×2 (05:29→15:02)
[2023-08-16] MEDS: metroNIDAZOLE IV 500 MG/100 ML PREMIX 100 MG IV ×3 (05:29→22:26)
[2023-08-16 06:36] LABS: Glucose Point of Care 93 mg/dL (70-110)
[2023-08-16] MEDS: ciprofloxacin 400 MG/200 ML PREMIX 200 MG IV ×2 (06:47→16:57)
[2023-08-16 08:00] VITALS: BP 99/65; PULSE 94; RESP 16; TEMP 36.5; O2SAT 97
--- NOTE | 2023-08-16 08:41 | USR_ITS ---
PROCEDURE INFORMATION: Exam: US Abdomen, Limited; Right Upper Quadrant Exam date and time: 08/16/2023 4:52 PM Age: 67 years old Clinical indication: Abnormal findings; Abnormal radiologic finding of the abdomen; Radiologic exam and body structure: Enlarged gb on CT exam, questionable cholecystitis; Additional info: Pain, PT ate breakfast started npo at 900 am TECHNIQUE: Imaging protocol: Real time ultrasound of the abdomen with image documentation. Limited exam focused on the right upper quadrant. COMPARISON: CT kidney stone [id number] 08/15/2023 6:17 PM FINDINGS: Liver: Unremarkable. Gallbladder: Mildly distended with questionable mild gallbladder wall thickening. No gallstones. No pericholecystic fluid. Negative sonographic Treviño's sign, as per the performing scheduling representative. Biliary ducts: Normal. No stones. No dilation. Pancreas: Unremarkable as visualized. Right kidney: No mass. No definite stones. No hydronephrosis. US/US gall bladder [id number] IMPRESSION: Mild gallbladder distension with questionable associated mild gallbladder wall thickening. If clinically indicated, HIDA scan would provide a more sensitive evaluation for acute gallbladder pathology.
--- NOTE | 2023-08-16 09:12 | PC.CHAP ---
Pastoral Care Encounter/Spiritual Assessment Type of Contact [] Declined underwater trapper visit [] Patient/Family/Request visit [] Outpatient visit [] Follow-up visit [] Physician referral [] Code/Alert [] Routine visit [] Staff referral [] Actively dying [] Patient sleeping [] Family support [] [] Out of room [] Palliative care [] [x] Receiving care in room [] Pre-surgical visit [] Trauma [] Long length of stay [] ICU visit [] Other: Relational/Emotional Strength [] Patient feels connected with others/family/visitors/staff [] Distress [] Loneliness/isolation [] Abandonment Spirituality of Patient [] Person of Michelle [] Attends Taoist of their Michelle [] Believes in Prayer [] Reads Bible or Sikhism materials [] There are Spiritual issues to be addressed Managing Cognitive Engineer Interventions [] Prayer [] Active listening [] Non-anxious presence [] Spiritual/emotional support [] Crisis/trauma care [] Spiritual counseling [] Bereavement support [] Provided bereavement packet [] Provided Bible/devotional materials [] Provided toy/stuffed animal, coloring book to patient or family member [] Provided Communion [] Anointing/[place] [] Salvation [] Completed spiritual assessment [] Other: Impact on Illness or Injury [] Angry [] Fearful [] Anxious [] Often cries [] Exhaustion [] Unable to work [] Unable to attend lutheran [] Unable to walk/stand [] Unable to read [] Unable to drive [] Unable to eat/drink [] Unable to sleep [] Unable to be with family [] Patient intubated [] Other: Summary Time spent with patient
[2023-08-16 10:53] LABS: Glucose Point of Care 159 mg/dL (70-110)
--- NOTE | 2023-08-16 11:04 | P.PN_ITS ---
Subjective 2 Subjective: Patient is stating that she was not on hospice She is not complain of any active pain She says she wants to go home when she is ready She is also against any kind of surgical intervention I tried to call her sponsor who is not picking up the phone call Concern for UTI in early cholecystitis Gallbladder ultrasound requested Dr. Hussein recommended nonsurgical management Vitals/I&O/Wt Last Vital Signs Temp 97.7 F 08/16/23 08:00 Pulse 94 08/16/23 08:00 Resp 16 08/16/23 08:00 BP 99/65 08/16/23 08:00 Pulse Ox 97 08/16/23 08:00 O2 Del Method Room Air 08/16/23 08:00 FiO2 21 08/15/23 22:05 08/15/23 08/16/23 08/16/23 22:59 06:59 14:59 Intake Total 550 / 550 935.417 / 1485.417 660 / 660 Output Total 200 / 200 Balance 350 / 350 935.417 / 1285.417 660 / 660 Weight last 48 hrs Weight 56.869 kg Weight 58.241 kg Weight 63.503 kg Physical Exam 2 Narrative: Patient able to make her needs known She is writing on the paper to answer my questions She is answering appropriately I do not see any sign of stroke or active confusion Dehydrated Lower extremity no signs of edema Hemodynamically stable Pleasant and cooperative Currently on room air Signs of dehydration present S1, S2 Sinus rhythm Urinary Catheter Management: Daly: Cath Placed During This Visit: yes Reason for Continuing Indwelling Catheter: Other Urinary Catheter Date of Insertion: 08/15/23 Urinary Catheter Time of Insertion: 23:23 Data 08/16/23 03:02 08/16/23 03:02 Micro: Microbiology 08/15/23 21:14 Blood Culture - Preliminary Blood SPECIMEN COLLECTED 08/15/23 21:14 Blood Culture - Preliminary Blood SPECIMEN COLLECTED A&P Assessment and plan (1) History of laryngectomy: (2) Acute cholecystitis: (3) Acute kidney injury: (4) Dehydration: (5) Urinary tract infection: (6) Laryngeal cancer: (7) Pubic ramus fracture: (8) Sacral insufficiency fracture: (9) Periprosthetic fracture around internal prosthetic left hip joint: (10) Encephalopathy acute: (11) Altered mental status: Plan Acute metabolic encephalopathy related to combination of dehydration and UTI and polypharmacy Improved this morning No sign of stroke No sign of meningitis Patient is awake and alert able to make her needs known High alkaline phosphatase Requested gallbladder ultrasound Patient is afebrile Liver enzymes normal Pubic rami fracture Sacral insufficiency fracture Patient is stating that she does not want any surgery Signs of dehydration with ANTHONY Do not have baseline creatinine Continue IV fluid hydration Avoid nephrotoxic agents Discontinue meloxicam Hypotension related dehydration holding metoprolol olmesartan Need to discuss goals of care again, patient stating that she was not on hospice Stating that she has a daughter checks on her however I tried to call the number listed sponsor no one is picking up She keeps showing signs of improvement and might be able to discharge her by tomorrow however I need to make sure she is safe and wanting to go home Attestations 2 Medical Necessity Statement*: Continue medical management Diagnoses History of laryngectomy Z90.02 Acute cholecystitis K81.0 Acute kidney injury N17.9 Dehydration E86.0 Urinary tract infection N39.0 Laryngeal cancer C32.9 Pubic ramus fracture S32.599A Sacral insufficiency fracture M84.48XA Periprosthetic fracture around internal prosthetic left hip joint M97.02XA Encephalopathy acute G93.40 Altered mental status R41.82
[2023-08-16 11:43] VITALS: BP 92/57; PULSE 86; RESP 17; TEMP 36.4
--- NOTE | 2023-08-16 14:32 | PM.MISC ---
Miscellaneous Note Note: To Whom it may concern, Ms. Shen who is a 67-year-old female, was admitted to the hospital for management evaluation of her confusion spell which has improved she is extremely dehydrated investigated secondary to her cancer and multiple comorbid conditions requiring significant assistance from her caregiver, at this point she is also suffering from periprosthetic hip fracture which is being managed medically, she is at risk of recurrent falls, at this point we have advised family member to be around her to prevent further deterioration. We are under the impression her only child is Ms. Hdez, who is planning to be around her to take care of her. We do believe Ms. Shen would definitely benefit from supervised care after familiar surroundings among her loved ones. Should you have any questions please do not hesitate to reach out to hospitalist department at [facility], phone #[phone] Thank so much Regards, [facility] Hospitalist
--- NOTE | 2023-08-16 16:41 | PC.SLP ---
LAY UP OPERATOR roma put on hold at this time. Pt NPO for test, possible procedure tomorrow. Pt communicating by mouthing words, and writing. Electrolarynx dropped and broken approximately 2 weeks ago. The pt has someone assisting her in getting a new one. LAY UP OPERATOR will follow-up when the pt is able. The pt was able to answer the social scientist questions and reports to be at baseline mental status.
[2023-08-16 17:10] LABS: Glucose Point of Care 141 mg/dL (70-110)
[2023-08-16 19:45] VITALS: BP 130/78; PULSE 95; RESP 18; TEMP 37; O2SAT 95
[2023-08-16 20:11] LABS: Glucose Point of Care 230 mg/dL (70-110)
[2023-08-16] MEDS: enoxaparin 40 mg/0.4 mL Syringe SUBCUT (22:26)
[2023-08-16] MEDS: pantoprazole 40 mg SDV IVP (22:26)
[2023-08-17] VITALS (9 sets, daily range): BP systolic 120–152; BP diastolic 72–88; PULSE 86–123; RESP 15–20; TEMP 36.4–37; O2SAT 93–97
[2023-08-17] MEDS: sodium chloride 0.9% 1,000 ML 125 ML IV (02:57)
[2023-08-17] MEDS: metroNIDAZOLE IV 500 MG/100 ML PREMIX 100 MG IV ×3 (05:27→22:09)
[2023-08-17 05:37] LABS: Basophils % 0.3 %; Eosinophils # 0.3 10^3/uL (0.0-0.8); Eosinophils % 3.1 %; Hematocrit 30.8 % (36-47); Lymphocytes # 1.2 10^3/uL (0.8-4.8); Mean Corpuscular HGB Conc 32.8 g/dL (30-55); Mean Corpuscular Hemoglobin 29.8 pg (27-33); Mean Corpuscular Volume 90.9 fl (85-98); Mean Platelet Volume 11.7 fL (7.4-10.4); Monocytes # 0.6 10^3/uL (0.2-0.9); Monocytes % 5.4 %; Neutrophils # 8.37 10^3/uL (1.8-7.7); Neutrophils % 77.7 %; Nucleated Red Blood Cells % 0 %; Platelet Count 164 10^3/cmm (157-399); Red Blood Count 3.39 10^6/uL (3.85-5.65); Red Cell Distribution Width 15.2 % (12.1-15.1); White Blood Count 10.76 10^3/uL (3.29-11.43)
[2023-08-17 06:00] LABS: Anion Gap 17.1 (5-19); Blood Urea Nitrogen 38 mg/dL (8-23); Calcium 8.2 mg/dL (8.5-10.5); Carbon Dioxide 18 mmol/L (22-29); Chloride 109 mmol/L (98-107); Glomerular Filtration Rate 26.3 mL/min (90-130); Glucose 166 mg/dL (65-115); Osmolality Calculated 303 mOsm/kg (285-295); Potassium 4.1 mmol/L (3.5-5.1); Sodium 140 mmol/L (136-145)
[2023-08-17 06:04] LABS: Creatinine Clr Calc Pharmacy 27.3287
[2023-08-17 06:15] LABS: Slide Review Slide Review Perform
[2023-08-17 06:26] LABS: Glucose Point of Care 159 mg/dL (70-110)
[2023-08-17] MEDS: ciprofloxacin 400 MG/200 ML PREMIX 200 MG IV ×2 (06:35→17:07)
[2023-08-17] MEDS: insulin lispro 100 unit/1 mL SUBCUT ×2 (08:15→11:57)
--- NOTE | 2023-08-17 09:48 | P.PN_ITS ---
Subjective 2 Subjective: Patient is complaining of bilateral costal margin pain On taking deep breaths And with coughing Currently tolerating diet No fever No problems when she eats She is tachycardic Patient is not happy with the news that her daughter is planning to come see her she is stating that she is into drugs Will request physical therapy, Patient stating that her roof leaks and her home conditions are not very safe for her Vitals/I&O/Wt Last Vital Signs Temp 97.8 F 08/17/23 08:00 Pulse 114 H 08/17/23 08:00 Resp 16 08/17/23 08:00 BP 146/83 08/17/23 08:00 Pulse Ox 96 08/17/23 08:00 O2 Del Method Room Air 08/17/23 08:00 FiO2 21 08/15/23 22:05 08/16/23 08/17/23 08/17/23 22:59 06:59 14:59 Intake Total 540 / 2440 1100 / 3540 300 / 300 Output Total 2100 / 2100 Balance 540 / 2440 -1000 / 1440 300 / 300 Weight last 48 hrs Weight 56.869 kg Weight 56.869 kg Weight 58.241 kg Weight 63.503 kg Physical Exam 2 Narrative: Pleasant cooperative Awake and alert GCS 15 Currently on room air Able to communicate Dehydrated Pleasant cooperative S1, S2 tachycardia Urinary Catheter Management: Daly: Cath Placed During This Visit: yes Reason for Continuing Indwelling Catheter: Other Urinary Catheter Date of Insertion: 08/15/23 Urinary Catheter Time of Insertion: 23:23 Data 08/17/23 05:01 08/17/23 05:01 Micro: Microbiology 08/15/23 21:14 Blood Culture - Preliminary Blood NEGATIVE TO DATE 08/15/23 21:14 Blood Culture - Preliminary Blood NEGATIVE TO DATE A&P Assessment and plan (1) History of laryngectomy: (2) Acute cholecystitis: (3) Dehydration: (4) Laryngeal cancer: (5) Pubic ramus fracture: (6) Sacral insufficiency fracture: (7) Altered mental status: (8) Acute kidney injury: (9) Urinary tract infection: Plan Metabolic encephalopathy related to polypharmacy and UTI Afebrile No active signs of confusion or encephalopathy Encephalopathy has resolved NIH 0 Periprosthetic fracture Will request physical therapy Will need to evaluate if she is considered safe to return home versus she needs penitentiary placement UTI: Continue to bother Concern for cholecystitis, gallbladder ultrasound unremarkable will request HIDA scan Tachycardia with hypertension Add metoprolol Dehydration: Continue IV fluids at 75 mill per hour DVT prophylaxis Lovenox Full code Currently on dysphagia diet she is not showing any sign of aspiration diet could be advanced Attestations 2 Medical Necessity Statement*: Further plan will be made after PT evaluation Diagnoses History of laryngectomy Z90.02 Acute cholecystitis K81.0 Dehydration E86.0 Laryngeal cancer C32.9 Pubic ramus fracture S32.599A Sacral insufficiency fracture M84.48XA Altered mental status R41.82 Acute kidney injury N17.9 Urinary tract infection N39.0
[2023-08-17] MEDS: metoprolol tartrate 25 mg Tablet PO ×2 (10:46→22:08)
[2023-08-17 11:36] LABS: Glucose Point of Care 197 mg/dL (70-110)
--- NOTE | 2023-08-17 12:49 | PC.SOCIAL ---
Pg 2 IMM Explained to pt Pg 2 IMM. No questions voiced. Provided pt a copy. Initialed, dated, & timed a copy & placed in chart.
[2023-08-17] MEDS: sodium chloride 0.9% 1,000 ML 75 ML IV (13:21)
[2023-08-17 16:59] LABS: Glucose Point of Care 116 mg/dL (70-110)
[2023-08-17] MEDS: morphine 4 mg/mL SDV 1 mL 2 MG IVP ×2 (17:44→22:05)
[2023-08-17 20:27] LABS: Glucose Point of Care 136 mg/dL (70-110)
[2023-08-17] MEDS: enoxaparin 40 mg/0.4 mL Syringe SUBCUT (22:09)
[2023-08-17] MEDS: pantoprazole 40 mg SDV IVP (22:10)
[2023-08-18] VITALS: BP 140/88; PULSE 83; RESP 18; TEMP 36.5; O2SAT 96
[2023-08-18] MEDS: sodium chloride 0.9% 1,000 ML 75 ML IV ×2 (03:59→17:31)
[2023-08-18 05:24] VITALS: BP 169/91; PULSE 87; RESP 16; TEMP 36.5; O2SAT 98
[2023-08-18] MEDS: ciprofloxacin 400 MG/200 ML PREMIX 200 MG IV ×2 (05:50→17:31)
[2023-08-18 05:52] LABS: Basophils % 0.3 %; Eosinophils # 0.4 10^3/uL (0.0-0.8); Eosinophils % 3.5 %; Lymphocytes # 1.2 10^3/uL (0.8-4.8); Lymphocytes % 11.7 %; Mean Corpuscular HGB Conc 32.6 g/dL (30-55); Mean Corpuscular Hemoglobin 29.5 pg (27-33); Mean Corpuscular Volume 90.6 fl (85-98); Mean Platelet Volume 11.4 fL (7.4-10.4); Monocytes # 0.5 10^3/uL (0.2-0.9); Monocytes % 4.8 %; Neutrophils # 7.88 10^3/uL (1.8-7.7); Neutrophils % 79.2 %; Nucleated Red Blood Cells % 0 %; Platelet Count 174 10^3/cmm (157-399); Red Blood Count 3.42 10^6/uL (3.85-5.65); Red Cell Distribution Width 15.3 % (12.1-15.1); White Blood Count 9.95 10^3/uL (3.29-11.43)
[2023-08-18 06:12] LABS: Alanine Aminotransferase 9 U/L (0-33); Alkaline Phosphatase 314 U/L (35-105); Anion Gap 17.8 (5-19); Aspartate Amino Transferase 17 U/L (0-32); Blood Urea Nitrogen 25 mg/dL (8-23); Calcium 8.5 mg/dL (8.5-10.5); Carbon Dioxide 17 mmol/L (22-29); Chloride 109 mmol/L (98-107); Creatinine Clr Calc Pharmacy 28.8469; Globulin 3.4 g/dL (1.3-4.6); Glucose 114 mg/dL (65-115); Osmolality Calculated 295 mOsm/kg (285-295); Potassium 3.8 mmol/L (3.5-5.1); Sodium 140 mmol/L (136-145); Total Bilirubin 0.5 mg/dL (0.15-1.2); Total Protein 6.4 g/dL (6.6-8.7)
--- NOTE | 2023-08-18 08:38 | P.PN_ITS ---
Subjective 2 Subjective: Patient to get HIDA scan today PT recommended rehab/group home Alkaline phosphatase improving No overnight significance Hemodynamically stable other than hypertension Afebrile Will put on level 7 dysphagia diet Vitals/I&O/Wt Last Vital Signs Temp 97.7 F 08/18/23 05:24 Pulse 87 08/18/23 05:24 Resp 16 08/18/23 05:24 BP 169/91 08/18/23 05:24 Pulse Ox 98 08/18/23 05:24 O2 Del Method Room Air 08/17/23 16:00 FiO2 21 08/15/23 22:05 08/17/23 08/18/23 08/18/23 22:59 06:59 14:59 Intake Total 440 / 2080.0 1100 / 3180.0 Output Total 550 / 550 1400 / 1950 Balance -110 / 1530.0 -300 / 1230.0 Weight last 48 hrs Weight 56.869 kg Weight 56.869 kg Physical Exam 2 Narrative: Pleasant cooperative Nonfocal neuroexam Service will arrange ectomy, stoma, patient able to do lipreading and use sign language to communicate with the doctors and nurses No active pain Signs of dehydration improving Nonfocal neuroexam Currently on room air S1, S2 Abdomen is soft Urinary Catheter Management: Daly: Cath Placed During This Visit: yes Reason for Continuing Indwelling Catheter: Other Urinary Catheter Date of Insertion: 08/15/23 Urinary Catheter Time of Insertion: 23:23 Data 08/18/23 05:07 08/18/23 05:07 A&P Assessment and plan (1) History of laryngectomy: (2) Acute cholecystitis: (3) Acute kidney injury: (4) Dehydration: (5) Urinary tract infection: (6) Pubic ramus fracture: (7) Sacral insufficiency fracture: (8) Periprosthetic fracture around internal prosthetic left hip joint: (9) Altered mental status: (10) Encephalopathy acute: Plan Mechanical fall Pubic rami fracture Medical management PT recommended group home placement Signs of dehydration improving Acute kidney injury is related to nephrotoxic agents Hold nephrotoxic antihypertensive regimen Creatinine improving with IV fluid hydration Hypertension: Add amlodipine, hold losartan, change metoprolol succinate to tartrate UTI: Continue antibiotics Concern for cholecystitis: HIDA scan requested Clinically she does not have typical signs of cholecystitis Metabolic encephalopathy: Resolved Signs of dehydration improving continue IV fluids Full code Attestations 2 Medical Necessity Statement*: Continue medical management Diagnoses History of laryngectomy Z90.02 Acute cholecystitis K81.0 Acute kidney injury N17.9 Dehydration E86.0 Urinary tract infection N39.0 Pubic ramus fracture S32.599A Sacral insufficiency fracture M84.48XA Periprosthetic fracture around internal prosthetic left hip joint M97.02XA Altered mental status R41.82 Encephalopathy acute G93.40
[2023-08-18] MEDS: amlodipine 10 mg Tablet PO (09:13)
[2023-08-18] MEDS: metroNIDAZOLE IV 500 MG/100 ML PREMIX 100 MG IV ×3 (09:13→22:52)
[2023-08-18] MEDS: metoprolol tartrate 25 mg Tablet PO ×2 (09:13→21:39)
[2023-08-18] MEDS: allopurinol 300 mg Tablet PO (09:13)
--- NOTE | 2023-08-18 09:48 | NM_ITS ---
WS: [id number] NUCLEAR MEDICINE HIDA SCAN WITH GALLBLADDER EJECTION FRACTION HISTORY: RIGHT upper quadrant pain. COMPARISON: Gallbladder ultrasound 08/16/2023 TECHNIQUE: The patient was intravenously injected with 8.1 mCi of TC99m Mebrofenin. Immediate imaging over the right upper quadrant was followed by 5 minute image and additional images for a total of 60 minutes. Normal uptake of radiotracer throughout the liver. Activity identified in the gallbladder at 30 minutes and well distended by 60 minutes. Activity in the proximal small bowel was seen by 15 minutes. Good washout of the radiotracer from the liver by 60 minutes. The patient then drank 8 ounces of Ensure Plus. Ejection fraction at 60 minutes was 53%. Normal GB ej ection fraction is 35-75%. Post fatty meal symptoms: None. NM/NM hepatobiliary w phar* [id number] IMPRESSION: 1. Normal HIDA scan. 2. Normal gallbladder ejection fraction.
[2023-08-18 11:52] LABS: Glucose Point of Care 148 mg/dL (70-110)
[2023-08-18 12:00] VITALS: BP 162/104; PULSE 89; RESP 16; TEMP 37; O2SAT 93
[2023-08-18] MEDS: hyDRALAzine 20 mg/mL INJ 1 mL 5 MG IVP (12:31)
[2023-08-18 15:42] LABS: Glucose Point of Care 132 mg/dL (70-110)
[2023-08-18 16:00] VITALS: BP 158/93; PULSE 78; RESP 16; TEMP 36.4; O2SAT 95
[2023-08-18 16:44] LABS: Vitamin B12 1057 pg/mL (232-1245)
[2023-08-18 17:10] LABS: Glucose Point of Care 147 mg/dL (70-110)
[2023-08-18] MEDS: ondansetron 2 mg/ML SDV 2 mL 4 MG IVP (19:10)
[2023-08-18] MEDS: acetaminophen 325 mg Tablet 650 MG PO (19:27)
[2023-08-18 19:34] VITALS: BP 159/90; PULSE 86; RESP 18; TEMP 36.4; O2SAT 95
[2023-08-18 20:54] LABS: Glucose Point of Care 143 mg/dL (70-110)
[2023-08-18] MEDS: pantoprazole 40 mg SDV IVP (21:40)
[2023-08-18] MEDS: enoxaparin 40 mg/0.4 mL Syringe SUBCUT (21:47)
[2023-08-18] MEDS: ALPRAZolam 0.5 mg Tablet 0.25 MG PO (22:51)
[2023-08-18 23:38] VITALS: BP 146/84; PULSE 76; RESP 17; TEMP 36.6; O2SAT 95
--- NOTE | 2023-08-19 03:40 | PC.NURSE ---
A/V HALLUCINATIONS patient began having visual hallucinations of a cat just outside the window on the roof of the building. writer technical publications saw no cat and explained that there was one. patient was adamant that she saw a cat. patient later became agitated stating that she could hear the cat crying. writer technical publications explained that there was no sound of a cat crying that could be heard. Later in the night the patient was seeing a kitten in the room behind the bedside end table. writer technical publications pulled out the end table and showed there was no kitten in the room. the patient would mouth, okay, okay when shown or reminded that there was no cat either outside or inside the room. patient is redirectable and cooperative for a time before having more behaviors with A/V hallucinations, becoming anxious and agitated, wanting to go home to her cats. this cycle of behaviors and redirection/reorientation has continued through the night.
[2023-08-19 04:00] VITALS: BP 163/67; PULSE 97; RESP 18; TEMP 36.6; O2SAT 98
[2023-08-19 05:05] LABS: Basophils % 0.3 %; Eosinophils # 0.2 10^3/uL (0.0-0.8); Eosinophils % 2.3 %; Hematocrit 34.3 % (36-47); Lymphocytes # 1.4 10^3/uL (0.8-4.8); Lymphocytes % 18.7 %; Mean Corpuscular HGB Conc 32.7 g/dL (30-55); Mean Corpuscular Hemoglobin 29.7 pg (27-33); Mean Platelet Volume 10.5 fL (7.4-10.4); Monocytes # 0.4 10^3/uL (0.2-0.9); Monocytes % 5.1 %; Neutrophils # 5.48 10^3/uL (1.8-7.7); Neutrophils % 73.2 %; Nucleated Red Blood Cells % 0 %; Platelet Count 193 10^3/cmm (157-399); Red Blood Count 3.77 10^6/uL (3.85-5.65); Red Cell Distribution Width 15.2 % (12.1-15.1); White Blood Count 7.48 10^3/uL (3.29-11.43)
[2023-08-19 05:25] LABS: Alanine Aminotransferase 11 U/L (0-33); Albumin Level 3.2 g/dL (3.5-5.2); Alkaline Phosphatase 298 U/L (35-105); Anion Gap 17.7 (5-19); Aspartate Amino Transferase 20 U/L (0-32); Blood Urea Nitrogen 19 mg/dL (8-23); Calcium 8.3 mg/dL (8.5-10.5); Carbon Dioxide 18 mmol/L (22-29); Chloride 105 mmol/L (98-107); Creatinine Clr Calc Pharmacy 34.6163; Globulin 3.3 g/dL (1.3-4.6); Glomerular Filtration Rate 34.5 mL/min (90-130); Glucose 139 mg/dL (65-115); Osmolality Calculated 289 mOsm/kg (285-295); Potassium 3.7 mmol/L (3.5-5.1); Sodium 137 mmol/L (136-145); Total Bilirubin 0.4 mg/dL (0.15-1.2); Total Protein 6.5 g/dL (6.6-8.7)
[2023-08-19] MEDS: ciprofloxacin 400 MG/200 ML PREMIX 200 MG IV (06:12)
[2023-08-19] MEDS: sodium chloride 0.9% 1,000 ML 75 ML IV ×2 (06:12→17:22)
[2023-08-19 06:34] LABS: Glucose Point of Care 157 mg/dL (70-110)
[2023-08-19 07:56] VITALS: BP 165/113; PULSE 88; RESP 14; TEMP 36.6; O2SAT 93
[2023-08-19] MEDS: amlodipine 10 mg Tablet PO (09:12)
[2023-08-19] MEDS: allopurinol 300 mg Tablet PO (09:12)
[2023-08-19] MEDS: ALPRAZolam 0.5 mg Tablet 0.25 MG PO ×2 (09:12→21:03)
[2023-08-19] MEDS: metroNIDAZOLE IV 500 MG/100 ML PREMIX 100 MG IV (09:18)
--- NOTE | 2023-08-19 09:18 | P.PN_ITS ---
Subjective 2 Subjective: Hepatobiliary scan is unremarkable Patient is complaining of some visual hallucination, she is seen In the room and she was wanting to feed the cat otherwise she is very pleasant and cooperative I do not see any focal deficits Clinically she is still dehydrated Able to follow commands at right appropriately Patient is stating that she puked 3 times Vitals/I&O/Wt Last Vital Signs Temp 97.8 F 08/19/23 07:56 Pulse 88 08/19/23 07:56 Resp 14 08/19/23 07:56 BP 165/113 08/19/23 07:56 Pulse Ox 93 08/19/23 07:56 O2 Del Method Room Air 08/19/23 07:56 FiO2 21 08/15/23 22:05 08/18/23 08/19/23 08/19/23 22:59 06:59 14:59 Intake Total 1420 / 1720 1051.25 / 2771.25 200 / 200 Balance 1420 / 1720 1051.25 / 2771.25 200 / 200 Weight last 48 hrs Weight 55.111 kg Weight 56.869 kg Physical Exam 2 Narrative: Patient is awake and alert Nonfocal neuroexam GCS 15 Pleasant cooperative She is still seeing cats in the room I do not see any active sign of stroke She is dehydrated Able to follow commands Able to write appropriately Abdomen soft Bowel sound present Lower extremity no edema Urinary Catheter Management: Daly: Cath Placed During This Visit: yes, but has since been removed by the nurse Reason for Continuing Indwelling Catheter: Decision to DC Catheter Urinary Catheter Date of Insertion: 08/15/23 Urinary Catheter Time of Insertion: 23:23 Date Urinary Catheter Removed: 08/18/23 Time Urinary Catheter Discontinued: 12:53 Data 08/19/23 04:49 08/19/23 04:49 A&P Assessment and plan (1) Acute kidney injury: (2) Acute cholecystitis: (3) History of laryngectomy: (4) Laryngeal cancer: (5) Dehydration: (6) Pubic ramus fracture: (7) Sacral insufficiency fracture: (8) Altered mental status: (9) Encephalopathy acute: (10) Visual hallucination: Plan Visual hallucination could be part of hypertensive encephalopathy, hospital- acquired delirium due to below mentioned reason Acute metabolic encephalopathy: Resolved Visual hallucination could be a part of underlying dehydration and UTI I would not put dementia in my differentials because of her age as of now Continue hydration No sign of stroke B12 TSH normal Hypertensive: Adjust antihypertensive regimen ANTHONY: Improving with IV fluid hydration Nausea vomiting: Requested KUB today Abdomen is soft Cholecystitis: Ruled out I will only keep antibiotics for UTI at this point UTI: Will add ceftriaxone discontinue Cipro and Flagyl Will need retirement placement Appreciate PT recommendations Full code Easy to chew diet Attestations 2 Medical Necessity Statement*: Awaiting placement Diagnoses Acute kidney injury N17.9 Acute cholecystitis K81.0 History of laryngectomy Z90.02 Laryngeal cancer C32.9 Dehydration E86.0 Pubic ramus fracture S32.599A Sacral insufficiency fracture M84.48XA Altered mental status R41.82 Encephalopathy acute G93.40 Visual hallucination R44.1
--- NOTE | 2023-08-19 09:19 | XR_ITS ---
WS: [id number] KUB, AP view, 08/19/2023 Clinical Data: Nausea vomiting Comparison: None. Findings: No abnormal intraabdominal masses or calcifications are seen. There is no dilatated small bowel or ev idence of obstruction. There is a large amount of fecal material in the a sending colon. The bladder is partly full. There a re upper abdominal surgical clips. There is a dextroscoliosis with osteoarthritis. There are bilatera l hip arthroplasties. There are radiopaque items overlying the left superior and inferior ischio pubi c rami. XR/XR KUB portable [id number] Impression: Large amount of fecal material and a sending colon.
[2023-08-19] MEDS: insulin lispro 100 unit/1 mL SUBCUT ×2 (09:20→17:21)
[2023-08-19 11:51] LABS: Glucose Point of Care 75 mg/dL (70-110)
[2023-08-19 12:00] VITALS: BP 123/80; PULSE 88; RESP 14; TEMP 36.8; O2SAT 97
[2023-08-19] MEDS: hyDRALAzine 10 mg Tablet PO ×2 (12:36→21:02)
[2023-08-19] MEDS: sennosides-docusate Tablet 1 TAB PO (12:36)
[2023-08-19] MEDS: potassium chloride oral liq 20 mEq/15 mL UDC 40 MEQ PO (12:36)
[2023-08-19] MEDS: metoprolol tartrate 25 mg Tablet PO ×2 (12:36→21:02)
[2023-08-19] MEDS: acetaminophen 325 mg Tablet 650 MG PO ×2 (14:52→21:03)
[2023-08-19 16:00] VITALS: BP 144/83; PULSE 59; RESP 16; TEMP 36.4; O2SAT 98
[2023-08-19 16:48] LABS: Glucose Point of Care 190 mg/dL (70-110)
[2023-08-19 19:49] VITALS: BP 148/79; PULSE 89; RESP 19; TEMP 36.7; O2SAT 97
[2023-08-19] MEDS: ondansetron 2 mg/ML SDV 2 mL 4 MG IVP (20:03)
[2023-08-19 20:34] LABS: Glucose Point of Care 83 mg/dL (70-110)
[2023-08-19] MEDS: enoxaparin 40 mg/0.4 mL Syringe SUBCUT (21:03)
[2023-08-19] MEDS: pantoprazole 40 mg SDV IVP (21:30)
[2023-08-19 23:41] VITALS: BP 130/79; PULSE 76; RESP 17; TEMP 36.3; O2SAT 95
[2023-08-20] VITALS (9 sets, daily range): BP systolic 126–149; BP diastolic 76–89; PULSE 79–97; RESP 16–22; TEMP 36.6–37.1; O2SAT 95–98
[2023-08-20 05:48] LABS: Basophils % 0.6 %; Eosinophils # 0.3 10^3/uL (0.0-0.8); Hematocrit 32.6 % (36-47); Lymphocytes % 28.1 %; Mean Corpuscular HGB Conc 32.2 g/dL (30-55); Mean Corpuscular Hemoglobin 29.1 pg (27-33); Mean Corpuscular Volume 90.3 fl (85-98); Mean Platelet Volume 10.4 fL (7.4-10.4); Monocytes # 0.5 10^3/uL (0.2-0.9); Monocytes % 6.6 %; Neutrophils # 4.22 10^3/uL (1.8-7.7); Nucleated Red Blood Cells % 0 %; Platelet Count 209 10^3/cmm (157-399); Red Blood Count 3.61 10^6/uL (3.85-5.65); White Blood Count 7.02 10^3/uL (3.29-11.43)
[2023-08-20] MEDS: sodium chloride 0.9% 1,000 ML 75 ML IV (06:05)
[2023-08-20 06:10] LABS: Anion Gap 15.3 (5-19); Blood Urea Nitrogen 17 mg/dL (8-23); Calcium 7.8 mg/dL (8.5-10.5); Carbon Dioxide 19 mmol/L (22-29); Chloride 106 mmol/L (98-107); Creatinine Clr Calc Pharmacy 39.4821; Glomerular Filtration Rate 40.7 mL/min (90-130); Glucose 93 mg/dL (65-115); Osmolality Calculated 285 mOsm/kg (285-295); Potassium 3.3 mmol/L (3.5-5.1); Sodium 137 mmol/L (136-145)
[2023-08-20 06:32] LABS: Glucose Point of Care 96 mg/dL (70-110)
[2023-08-20] MEDS: lactulose oral liq 20 gm/30 mL UDC 10 GM PO (09:10)
[2023-08-20] MEDS: amlodipine 10 mg Tablet PO (09:11)
[2023-08-20] MEDS: allopurinol 300 mg Tablet PO (09:11)
[2023-08-20] MEDS: sennosides-docusate Tablet 1 TAB PO (09:11)
[2023-08-20] MEDS: hyDRALAzine 10 mg Tablet PO ×3 (09:11→20:14)
[2023-08-20] MEDS: metoprolol tartrate 25 mg Tablet PO ×2 (09:51→20:14)
[2023-08-20] MEDS: acetaminophen 325 mg Tablet 650 MG PO ×2 (09:57→17:48)
[2023-08-20] MEDS: ALPRAZolam 0.5 mg Tablet 0.25 MG PO ×2 (09:57→20:14)
[2023-08-20] MEDS: potassium chloride ER 20 mEq Tablet PO (10:53)
[2023-08-20 10:54] LABS: Glucose Point of Care 147 mg/dL (70-110)
[2023-08-20] MEDS: insulin lispro 100 unit/1 mL SUBCUT (12:36)
[2023-08-20 16:58] LABS: Glucose Point of Care 139 mg/dL (70-110)
--- NOTE | 2023-08-20 17:37 | PC.NURSE ---
Verbal order from Dr. Beck to increase Senna to two tablets Bid.
[2023-08-20] MEDS: sennosides-docusate Tablet 2 TAB PO (17:48)
--- NOTE | 2023-08-20 18:02 | P.PN_ITS ---
Subjective 2 Subjective: Patient is constipated She has been on aggressive bowel regimen Working with PT Patient is refusing lactulose, she has been very aggressive with the nursing staff Her delirium is getting worse with constipation Vitals/I&O/Wt Last Vital Signs Temp 98.1 F 08/19/23 19:49 Pulse 89 08/19/23 19:49 Resp 19 H 08/19/23 19:49 BP 148/79 08/19/23 19:49 Pulse Ox 97 08/19/23 19:49 O2 Del Method Room Air 08/19/23 19:49 FiO2 21 08/15/23 22:05 08/19/23 08/19/23 08/19/23 06:59 14:59 22:59 Intake Total 1051.25 / 2771.25 420 / 420 957.5 / 1377.5 Balance 1051.25 / 2771.25 420 / 420 957.5 / 1377.5 Weight last 48 hrs Weight 55.111 kg Weight 56.869 kg Physical Exam 2 Narrative: Signs of dehydration improving Nonfocal neuroexam Also present No abdominal pain or tendernes on palpation Pleasant and cooperative Currently on room air Able to make her needs known S1, S2 Urinary Catheter Management: Daly: Cath Placed During This Visit: yes, but has since been removed by the nurse Reason for Continuing Indwelling Catheter: Decision to DC Catheter Urinary Catheter Date of Insertion: 08/15/23 Urinary Catheter Time of Insertion: 23:23 Date Urinary Catheter Removed: 08/18/23 Time Urinary Catheter Discontinued: 12:53 Data 08/20/23 05:24 08/20/23 05:24 A&P Assessment and plan (1) Acute kidney injury: (2) Acute cholecystitis: (3) History of laryngectomy: (4) Laryngeal cancer: (5) Dehydration: (6) Pubic ramus fracture: (7) Sacral insufficiency fracture: (8) Altered mental status: (9) Encephalopathy acute: (10) Visual hallucination: (11) Constipation: Plan Visual hallucination Related to dehydration and constipation Aggressive bowel regimen has been given No BM yet Refusing treatment Refuse enema as well Hypertensive: Blood pressure improved as well ANTHONY: Improving with IV fluid hydration Nausea vomiting: KUB positive for constipation Cholecystitis: Ruled out and currently she is on antibiotics for UTI UTI: Will add ceftriaxone discontinue Cipro and Flagyl Will need long term placement Appreciate PT recommendations Full code Easy to chew diet Attestations 2 Medical Necessity Statement*: Awaiting placement Diagnoses Acute kidney injury N17.9 Acute cholecystitis K81.0 History of laryngectomy Z90.02 Laryngeal cancer C32.9 Dehydration E86.0 Pubic ramus fracture S32.599A Sacral insufficiency fracture M84.48XA Altered mental status R41.82 Encephalopathy acute G93.40 Visual hallucination R44.1 Constipation K59.00
[2023-08-20] MEDS: morphine 4 mg/mL SDV 1 mL 2 MG IVP (19:39)
--- NOTE | 2023-08-20 20:10 | PC.NURSE ---
pt informed that there is order for Fleets enema to assist pt on having bowel movement, pt refused stated NO , nurse attempted to educate pt about constipation adding to pain but pt continue to refuse
[2023-08-20] MEDS: enoxaparin 40 mg/0.4 mL Syringe SUBCUT (21:14)
[2023-08-20 21:39] LABS: Glucose Point of Care 108 mg/dL (70-110)
[2023-08-20] MEDS: pantoprazole 40 mg SDV IVP (21:50)
[2023-08-21] VITALS (8 sets, daily range): BP systolic 114–142; BP diastolic 70–84; PULSE 78–93; RESP 16–18; TEMP 36.6–36.9; O2SAT 91–98
[2023-08-21 06:16] LABS: Anion Gap 16.3 (5-19); Blood Urea Nitrogen 14 mg/dL (8-23); Calcium 7.7 mg/dL (8.5-10.5); Carbon Dioxide 20 mmol/L (22-29); Chloride 107 mmol/L (98-107); Creatinine Clr Calc Pharmacy 46.2051; Glomerular Filtration Rate 49.4 mL/min (90-130); Glucose 126 mg/dL (65-115); Osmolality Calculated 292 mOsm/kg (285-295); Potassium 3.3 mmol/L (3.5-5.1); Sodium 140 mmol/L (136-145)
[2023-08-21 06:26] LABS: Glucose Point of Care 124 mg/dL (70-110)
--- NOTE | 2023-08-21 07:00 | XRR_ITS ---
PROCEDURE INFORMATION: Exam: XR Abdomen Exam date and time: 08/21/2023 7:20 AM Age: 67 years old Clinical indication: Abdominal pain; Patient HX: Constipation TECHNIQUE: Imaging protocol: Radiologic exam of the abdomen. Views: Frontal supine view of the abdomen. 1 View. COMPARISON: CR XR KUB portable [id number] 08/19/2023 9:43 AM FINDINGS: Gastrointestinal tract: Moderate colonic stool burden. Overall nonobstructive bowel gas pattern. Bones/joints: Status post bilateral hip arthroplasty. Unchanged appearance of multiple subacute pelvic fractures. XR/XR KUB portable [id number] IMPRESSION: Moderate colonic stool burden. Overall nonobstructive bowel gas pattern.
[2023-08-21] MEDS: morphine 4 mg/mL SDV 1 mL 2 MG IVP ×2 (07:41→10:41)
[2023-08-21] MEDS: sennosides-docusate Tablet 2 TAB PO ×2 (09:21→17:13)
[2023-08-21] MEDS: allopurinol 300 mg Tablet PO (09:22)
[2023-08-21] MEDS: hyDRALAzine 10 mg Tablet PO ×3 (09:22→20:55)
[2023-08-21] MEDS: ALPRAZolam 0.5 mg Tablet 0.25 MG PO (09:22)
[2023-08-21] MEDS: amlodipine 10 mg Tablet PO (09:22)
[2023-08-21] MEDS: metoprolol tartrate 25 mg Tablet PO ×2 (09:25→20:55)
[2023-08-21 10:58] LABS: Glucose Point of Care 140 mg/dL (70-110)
--- NOTE | 2023-08-21 11:08 | P.PN_ITS ---
Subjective 2 Subjective: Patient is still constipated She is not willing to try suppository or lactulose Willing to try p.o. lactulose today KUB showing constipation Will try GoLytely as well Vitals/I&O/Wt Last Vital Signs Temp 98.2 F 08/21/23 08:00 Pulse 93 08/21/23 08:00 Resp 16 08/21/23 10:41 BP 129/84 08/21/23 08:00 Pulse Ox 97 08/21/23 08:00 O2 Del Method Room Air 08/21/23 04:00 FiO2 21 08/15/23 22:05 08/20/23 08/21/23 08/21/23 22:59 06:59 14:59 Intake Total 1060 / 1420 60 / 1480 120 / 120 Output Total 0 / 0 Balance 1060 / 1420 60 / 1480 120 / 120 Weight last 48 hrs Weight 53.637 kg Weight 55.14 kg Physical Exam 2 Narrative: Bowel sound present No abdominal distention is ordered no tenderness on palpation Awake alert Signs of dehydration improving Nonfocal neuroexam Normotensive Currently on room air Afebrile Nonfocal neuroexam Urinary Catheter Management: Daly: Cath Placed During This Visit: yes, but has since been removed by the nurse Reason for Continuing Indwelling Catheter: Decision to DC Catheter Urinary Catheter Date of Insertion: 08/15/23 Urinary Catheter Time of Insertion: 23:23 Date Urinary Catheter Removed: 08/18/23 Time Urinary Catheter Discontinued: 12:53 Data 08/20/23 05:24 08/21/23 05:01 Micro: Microbiology 08/15/23 21:14 Blood Culture - Final Blood NO GROWTH AFTER 5 DAYS 08/15/23 21:14 Blood Culture - Final Blood NO GROWTH AFTER 5 DAYS A&P Assessment and plan (1) Visual hallucination: (2) History of laryngectomy: (3) Constipation: (4) Acute kidney injury: (5) Dehydration: (6) Urinary tract infection: (7) Laryngeal cancer: (8) Pubic ramus fracture: (9) Sacral insufficiency fracture: (10) Altered mental status: Plan Delirium and visual hallucination: Proved Constipation: Will do GoLytely today Lactulose She does not require enema Full code KUB repeated today Normotensive Pain well-managed with opioids however it is causing constipation I will cut back on opioids and use tramadol Plan is to discharge on Tuesday hopefully she will get a bowel movement if she stays compliant with GoLytely today DVT prophylaxis on board Full code Continue treatment for UTI as well add levofloxacin, ANTHONY: Improving Attestations 2 Medical Necessity Statement*: Discharge on Tuesday Diagnoses Visual hallucination R44.1 History of laryngectomy Z90.02 Constipation K59.00 Acute kidney injury N17.9 Dehydration E86.0 Urinary tract infection N39.0 Laryngeal cancer C32.9 Pubic ramus fracture S32.599A Sacral insufficiency fracture M84.48XA Altered mental status R41.82
[2023-08-21] MEDS: levoFLOXacin 750 mg Tablet PO (12:13)
[2023-08-21] MEDS: potassium chloride ER 20 mEq Tablet 40 MEQ PO (12:14)
[2023-08-21 16:58] LABS: Glucose Point of Care 150 mg/dL (70-110)
[2023-08-21] MEDS: insulin lispro 100 unit/1 mL SUBCUT (17:13)
[2023-08-21] MEDS: enoxaparin 40 mg/0.4 mL Syringe SUBCUT (20:55)
[2023-08-21] MEDS: pantoprazole 40 mg SDV IVP (20:55)
[2023-08-21] MEDS: morphine 4 mg/mL SDV 1 mL 1 MG IVP (20:56)
[2023-08-21 21:04] LABS: Glucose Point of Care 72 mg/dL (70-110)
[2023-08-22] VITALS (10 sets, daily range): BP systolic 117–147; BP diastolic 77–91; PULSE 74–100; RESP 15–18; TEMP 36.5–37.1; O2SAT 92–95
[2023-08-22] MEDS: morphine 4 mg/mL SDV 1 mL 1 MG IVP ×4 (02:59→21:18)
[2023-08-22] MEDS: ALPRAZolam 0.5 mg Tablet PO ×2 (03:08→16:26)
[2023-08-22 05:31] LABS: Anion Gap 16.1 (5-19); Blood Urea Nitrogen 16 mg/dL (8-23); Calcium 7.7 mg/dL (8.5-10.5); Carbon Dioxide 21 mmol/L (22-29); Chloride 107 mmol/L (98-107); Creatinine Clr Calc Pharmacy 46.2051; Glomerular Filtration Rate 49.4 mL/min (90-130); Glucose 152 mg/dL (65-115); Magnesium 1.6 mg/dL (1.7-2.3); Osmolality Calculated 296 mOsm/kg (285-295); Potassium 3.1 mmol/L (3.5-5.1); Sodium 141 mmol/L (136-145)
[2023-08-22] MEDS: levoFLOXacin 750 mg Tablet PO (06:12)
[2023-08-22 06:28] LABS: Glucose Point of Care 175 mg/dL (70-110)
[2023-08-22] MEDS: magnesium sulfate premix 1 GM/100 ML PIGGYBACK IV (07:58)
[2023-08-22] MEDS: insulin lispro 100 unit/1 mL SUBCUT (07:58)
[2023-08-22] MEDS: polyethylene glycol 3350 Pkt 17 gm PO (07:59)
[2023-08-22] MEDS: lactulose oral liq 20 gm/30 mL UDC 10 GM PO (07:59)
[2023-08-22] MEDS: allopurinol 300 mg Tablet PO (08:00)
[2023-08-22] MEDS: metoprolol tartrate 25 mg Tablet PO ×2 (08:00→21:19)
[2023-08-22] MEDS: sennosides-docusate Tablet 2 TAB PO ×2 (08:00→17:54)
[2023-08-22] MEDS: hyDRALAzine 10 mg Tablet PO ×3 (08:00→21:19)
[2023-08-22] MEDS: amlodipine 10 mg Tablet PO (08:00)
--- NOTE | 2023-08-22 10:45 | P.PN_ITS ---
Subjective 2 Subjective: This morning patient is agreeable to try GoLytely Nurse notified as well Patient has had no bowel movement since Tuesday Bowel sounds present No active nausea or vomiting No abdominal pain Vitals/I&O/Wt Last Vital Signs Temp 97.7 F 08/22/23 07:30 Pulse 74 08/22/23 07:30 Resp 18 08/22/23 08:40 BP 144/87 08/22/23 07:30 Pulse Ox 95 08/22/23 08:40 O2 Del Method Room Air 08/22/23 07:30 FiO2 21 08/15/23 22:05 08/21/23 08/22/23 08/22/23 22:59 06:59 14:59 Intake Total 240 / 580 120 / 700 340 / 340 Balance 240 / 580 120 / 700 340 / 340 Weight last 48 hrs Weight 60.328 kg Weight 53.637 kg Physical Exam 2 Narrative: Awake and alert no abdominal tenderness Bowel sounds present Currently on room air Signs of dehydration present Able to follow commands Able to comprehend questions as well Giving appropriate answers Agreeable to use GoLytely today Moving all 4 extremities On room air Normotensive Hemodynamically stable S1, S2 Urinary Catheter Management: Daly: Cath Placed During This Visit: yes, but has since been removed by the nurse Reason for Continuing Indwelling Catheter: Decision to DC Catheter Urinary Catheter Date of Insertion: 08/15/23 Urinary Catheter Time of Insertion: 23:23 Date Urinary Catheter Removed: 08/18/23 Time Urinary Catheter Discontinued: 12:53 Data 08/20/23 05:24 08/22/23 04:41 A&P Assessment and plan (1) Visual hallucination: (2) Constipation: (3) Acute cholecystitis: (4) Acute kidney injury: (5) Dehydration: (6) Urinary tract infection: (7) Laryngeal cancer: (8) Pubic ramus fracture: (9) Sacral insufficiency fracture: (10) Periprosthetic fracture around internal prosthetic left hip joint: (11) Altered mental status: Plan Hypomagnesemia, hypokalemia: Replenished Constipation: Patient refusing most of the medications, agreeable to use GoLytely today No active nausea or vomiting Hemodynamically stable, blood pressure improved with antihypertensive regimen ANTHONY improved with IV fluid hydration Sign of dehydration improving Cholecystitis: Ruled out Currently on dysphagia diet Patient is able to walk independently to some extent Will follow-up with today's PT notes as well If patient is able to walk independently then she might only need home health versus outpatient physical therapy Full code Peer to peer review done today: They wanted another PT note from today Not ready to be discharged until she gets good bowel movement Attestations 2 Medical Necessity Statement*: PT evaluation today Currently medical management patient is severely constipated Diagnoses Visual hallucination R44.1 Constipation K59.00 Acute cholecystitis K81.0 Acute kidney injury N17.9 Dehydration E86.0 Urinary tract infection N39.0 Laryngeal cancer C32.9 Pubic ramus fracture S32.599A Sacral insufficiency fracture M84.48XA Periprosthetic fracture around internal prosthetic left hip joint M97.02XA Altered mental status R41.82
[2023-08-22 11:00] LABS: Glucose Point of Care 97 mg/dL (70-110)
--- NOTE | 2023-08-22 11:36 | PC.SOCIAL ---
IMM Update pg 2 of IMM updated and reviewed w/ patient. Copy provided and copy dated, initialed and placed in chart.
[2023-08-22] MEDS: potassium chloride ER 20 mEq Tablet 40 MEQ PO (14:04)
[2023-08-22 17:02] LABS: Glucose Point of Care 133 mg/dL (70-110)
[2023-08-22] MEDS: pantoprazole 40 mg SDV IVP (21:18)
[2023-08-22] MEDS: enoxaparin 40 mg/0.4 mL Syringe SUBCUT (21:18)
[2023-08-22 22:04] LABS: Glucose Point of Care 125 mg/dL (70-110)
[2023-08-23] VITALS: BP 120/75; PULSE 80; RESP 17; TEMP 36.4; O2SAT 96
[2023-08-23 02:52] VITALS: RESP 17; O2SAT 96
[2023-08-23] MEDS: morphine 4 mg/mL SDV 1 mL 1 MG IVP (02:52)
[2023-08-23 04:00] VITALS: BP 115/80; PULSE 76; RESP 18; TEMP 36.8; O2SAT 94
[2023-08-23] MEDS: ALPRAZolam 0.5 mg Tablet PO (05:11)
[2023-08-23] MEDS: levoFLOXacin 750 mg Tablet PO (05:12)
[2023-08-23 06:05] LABS: Anion Gap 18.4 (5-19); Blood Urea Nitrogen 15 mg/dL (8-23); Calcium 8.3 mg/dL (8.5-10.5); Carbon Dioxide 20 mmol/L (22-29); Chloride 103 mmol/L (98-107); Glomerular Filtration Rate 55.1 mL/min (90-130); Glucose 157 mg/dL (65-115); Osmolality Calculated 290 mOsm/kg (285-295); Potassium 3.4 mmol/L (3.5-5.1); Sodium 138 mmol/L (136-145)
[2023-08-23 06:06] LABS: Creatinine Clr Calc Pharmacy 51.5777
[2023-08-23 06:25] LABS: Glucose Point of Care 149 mg/dL (70-110)
[2023-08-23 07:30] VITALS: BP 138/93; PULSE 96; RESP 16; TEMP 36.5; O2SAT 93
[2023-08-23] MEDS: lactulose oral liq 20 gm/30 mL UDC 10 GM PO (08:21)
[2023-08-23] MEDS: polyethylene glycol 3350 Pkt 17 gm PO (08:21)
[2023-08-23] MEDS: hyDRALAzine 10 mg Tablet PO (08:21)
[2023-08-23] MEDS: amlodipine 10 mg Tablet PO (08:21)
[2023-08-23] MEDS: insulin lispro 100 unit/1 mL SUBCUT (08:21)
[2023-08-23] MEDS: metoprolol tartrate 25 mg Tablet PO (08:21)
[2023-08-23] MEDS: sennosides-docusate Tablet 2 TAB PO (08:21)
[2023-08-23] MEDS: allopurinol 300 mg Tablet PO (08:21)
--- NOTE | 2023-08-23 08:26 | P.DS_ITS ---
Discharge Providers Date of Admission: 08/15/23 20:00 Date of Discharge: August 23, 2023 Attending Provider at Admission: Vijay Tipton MD Attending Provider at Discharge: Elmer Beck MD Diagnoses at Discharge Discharge Diagnosis (1) Visual hallucination: Status: Acute (2) Constipation: Status: Acute (3) Acute cholecystitis: Status: Acute Permanent problem details: Ruled out (4) Acute kidney injury: Status: Acute (5) Dehydration: Status: Acute (6) Urinary tract infection: Status: Acute (7) Laryngeal cancer: Status: Acute (8) Pubic ramus fracture: Status: Acute (9) Sacral insufficiency fracture: Status: Acute (10) Periprosthetic fracture around internal prosthetic left hip joint: Status: Acute (11) Altered mental status: Status: Acute Reason for Visit Reason for Visit: AMS Hospital Course Hospital Course 67-year old female who was admitted for management valuation of pubic rami fracture pain management, PT recommended snf placement, patient uses sign language and written communication, she became constipated from opioids, we gave her GoLytely lactulose laxatives and rectal enema, she refused most of the medications however tried some GoLytely, she had 1 bowel movement for discharge, she is not showing any sign of obstruction, she is tolerating diet, no active nausea or vomiting, passing gas. Hemodynamically stable, she remains on room air She is full code, she does not want to stay in touch with her daughter who was recently incarcerated. At home she is not considered safe because she lives alone, she is going to rehab short-term and then plan to go back home. There are some family members who live around her who will check on her time to time. She was also diagnosed with acute kidney injury we do not have her baseline creatinine, he presented with creatinine of 2.7 secondary to dehydration with improved with IV fluid hydration Patient also became delirious with metabolic encephalopathy multifactorial related to dehydration UTI and constipation, Her visual hallucination improved, agitation improved as well, she is tolerating easy to chew diet because she is edentulous She is full code She is going to short-term rehab. Physical Exam Narrative: Awake and alert no abdominal tende rness Bowel sounds present Currently on room air Signs of dehydration pr esent Able to foll ow commands Able t o comprehend quest ions as well Givin g appropriate answ ers Agreeable to u se GoLytely today Moving all 4 extre mities On room air Normotensive Hemo dynamically stable S1, S2 Urinary Catheter Management: Daly: Cath Placed During This Visit: yes, but has since been removed by the nurse Reason for Continuing Indwelling Catheter: Decision to DC Catheter Urinary Catheter Date of Insertion: 08/15/23 Urinary Catheter Time of Insertion: 23:23 Date Urinary Catheter Removed: 08/18/23 Time Urinary Catheter Discontinued: 12:53 Discharge Data Studies Completed and Pending Completed Studies During Hospitalization Category Date Time Status CT head wo con* [id number] Stat Cat Scan 08/15/23 16:[address] kidney stone [id number] Stat Cat Scan 08/15/23 18:01 Completed XR KUB portable [id number] Routine Exams 08/19/23 09:19 Completed XR KUB portable [id number] Routine Exams 08/21/23 07:00 Completed XR chest 1V portable [id number] Stat Exams 08/15/23 15:41 Completed NM hepatobiliary w phar* [id number] Routine Nuc Med 08/18/23 09:48 Completed US gall bladder [id number] Routine Ultrasound 08/16/23 08:41 Completed Pending at discharge Category Date Time Status COVID [SARS Covid-2 Antigen] Routine Lab 08/23/23 08:25 Uncollected Radiology Impressions Chest X-Ray 08/15/23 15:41 IMPRESSION: No acute findings. Head CT 08/15/23 16:09 IMPRESSION: 1. No acute intracranial abnormality. Abdomen/Pelvis CT 08/15/23 18:01 IMPRESSION: 1. Suspected early acute cholecystitis. Correlation with biliary labs and right upper quadrant may be helpful. 2. Subacute periprosthetic fracture of the left acetabulum. Orthopedic evaluation is recommended. 3. Subacute displaced fractures of the superior and inferior pubic rami on the left as well as bilateral sacral insufficiency fractures. Gallbladder Ultrasound 08/16/23 08:41 IMPRESSION: Mild gallbladder distension with questionable associated mild gallbladder wall thickening. If clinically indicated, HIDA scan would provide a more sensitive evaluation for acute gallbladder pathology. Hepatobiliary Scan Nuclear Medicine 08/18/23 09:48 IMPRESSION: 1. Normal HIDA scan. 2. Normal gallbladder ejection fraction. KUB X-Ray 08/21/23 07:00 IMPRESSION: Moderate colonic stool burden. Overall nonobstructive bowel gas pattern. Laboratory Results WBC 7.02 10^3/uL (3.29-11.43) 08/20/23 05:24 RBC 3.61 10^6/uL (3.85-5.65) L 08/20/23 05:24 Hgb 10.50 g/dL (11.27-16.99) L 08/20/23 05:24 Hct 32.6 % (36-47) L 08/20/23 05:24 MCV 90.3 fl (85-98) 08/20/23 05:24 MCH 29.1 pg (27-33) 08/20/23 05:24 MCHC 32.2 g/dL (30-55) 08/20/23 05:24 RDW 15.0 % (12.1-15.1) 08/20/23 05:24 Plt Count 209 10^3/cmm (157-399) 08/20/23 05:24 MPV 10.4 fL (7.4-10.4) 08/20/23 05:24 Neut % (Auto) 60.0 % 08/20/23 05:24 Lymph % (Auto) 28.1 % 08/20/23 05:24 [place] % (Auto) 6.6 % 08/20/23 05:24 Eos % (Auto) 4.0 % 08/20/23 05:24 Baso % (Auto) 0.6 % 08/20/23 05:24 Neut # (Auto) 4.22 10^3/uL (1.8-7.7) 08/20/23 05:24 Lymph # (Auto) 2.0 10^3/uL (0.8-4.8) 08/20/23 05:24 [place] # (Auto) 0.5 10^3/uL (0.2-0.9) 08/20/23 05:24 Eos # (Auto) 0.3 10^3/uL (0.0-0.8) 08/20/23 05:24 Baso # (Auto) 0.0 10^3/uL (0.0-0.1) 08/20/23 05:24 Nucleated RBC % (auto) 0 % 08/20/23 05:24 Nucleated RBCs # 0.0 /100WBC 08/20/23 05:24 Sodium 138 mmol/L (136-145) 08/23/23 05:15 Potassium 3.4 mmol/L (3.5-5.1) L 08/23/23 05:15 Chloride 103 mmol/L (98-107) 08/23/23 05:15 Carbon Dioxide 20 mmol/L (22-29) L 08/23/23 05:15 Anion Gap 18.4 (5-19) 08/23/23 05:15 BUN 15 mg/dL (8-23) 08/23/23 05:15 Creatinine 1.0 mg/dL (0.5-0.9) H 08/23/23 05:15 GFR Calculation 55.1 mL/min (90-130) L 08/23/23 05:15 Glucose 157 mg/dL (65-115) H 08/23/23 05:15 POC Glucose 149 mg/dL (70-110) H 08/23/23 06:19 Estimat Average Glucose 189 08/15/23 17:15 Hemoglobin A1c 8.2 % (4.0-6.0) H 08/15/23 17:15 Calculated Osmolality 290 mOsm/kg (285-295) 08/23/23 05:15 Lactic Acid 2.2 mmol/L (0.5-2.2) 08/15/23 23:25 Lactic Acid (Sepsis) 2.0 mmol/L (0.5-2.2) 08/16/23 03:02 Calcium 8.3 mg/dL (8.5-10.5) L 08/23/23 05:15 Phosphorus 4.4 mg/dL (2.5-4.5) 08/15/23 19:12 Magnesium 1.6 mg/dL (1.7-2.3) L 08/22/23 04:41 Total Bilirubin 0.4 mg/dL (0.15-1.2) 08/19/23 04:49 AST 20 U/L (0-32) 08/19/23 04:49 ALT 11 U/L (0-33) 08/19/23 04:49 Alkaline Phosphatase 298 U/L (35-105) H 08/19/23 04:49 Creatine Kinase 70 U/L (26-192) 08/15/23 19:12 Troponin T Baseline < 6 ng/L (0-10) 08/15/23 17:15 Troponin T 120 Minute 6.00 ng/L (0-10) 08/15/23 19:12 Delta Troponin T 0.13804 ABS# (0-10) 08/15/23 19:12 Troponin T Hi Sens 6Hr 6.00 ng/L (0-10) 08/15/23 23:25 Troponin T Hi Sens 6Hr Delta 0.08716 ng/L (0-12) 08/15/23 23:25 C-Reactive Protein 534.4 mg/L (0.0-4.9) H 08/15/23 19:12 Total Protein 6.5 g/dL (6.6-8.7) L 08/19/23 04:49 Albumin 3.2 g/dL (3.5-5.2) L 08/19/23 04:49 Globulin 3.3 g/dL (1.3-4.6) 08/19/23 04:49 Vitamin B12 1057 pg/mL (232-1245) 08/18/23 05:07 Procalcitonin 1.31 ng/mL (0-0.5) H 08/15/23 19:12 TSH 4.31 uIU/mL (0.27-4.20) H 08/15/23 19:12 Urine Color Dark yellow (Yellow) 08/15/23 18:07 Urine Appearance Hazy (CLEAR) A 08/15/23 18:07 Urine pH 5 (5-7) 08/15/23 18:07 Ur Specific [place] 1.015 (1.005-1.030) 08/15/23 18:07 Urine Protein Neg (Negative) 08/15/23 18:07 Urine Glucose (UA) Norm (Normal) 08/15/23 18:07 Urine Ketones Negative (Negative) 08/15/23 18:07 Urine Blood Neg (Negative) 08/15/23 18:07 Urine Nitrate Negative (Negative) 08/15/23 18:07 Urine Bilirubin 1+ (Negative) H 08/15/23 18:07 Urine Urobilinogen Norm mg/dL (Negative) 08/15/23 18:07 Ur Leukocyte Esterase 2+ (Negative) H 08/15/23 18:07 Urine RBC 0-4 /hpf (0-2) H 08/15/23 18:07 Urine WBC 15-25 /hpf (0-5) H 08/15/23 18:07 Ur Squamous Epith Cells 15-25 /hpf (0-5) H 08/15/23 18:07 Amorphous Sediment Not Reportable 08/15/23 18:07 Urine Bacteria 1+ /hpf (NONE) H 08/15/23 18:07 Urine Opiates Screen Positive ng/mL (Negative) H 08/15/23 18:07 Ur Barbiturates Screen Negative ng/mL (Negative) 08/15/23 18:07 Ur Phencyclidine Scrn Negative ng/mL (Negative) 08/15/23 18:07 Ur Amphetamines Screen Negative ng/mL (Negative) 08/15/23 18:07 U Benzodiazepines Scrn Positive ng/mL (Negative) H 08/15/23 18:07 Urine Cocaine Screen Negative ng/mL (Negative) 08/15/23 18:07 U Marijuana (THC) Screen Negative ng/mL (Negative) 08/15/23 18:07 Ethyl Alcohol < 10 mg/dL (0-10) 08/15/23 19:12 Serum Ketones Negative (Negative) 08/15/23 17:15 Vitals Last Vital Signs Temp 97.7 F 08/23/23 07:30 Pulse 96 08/23/23 07:30 Resp 16 08/23/23 07:30 BP 138/93 08/23/23 07:30 Pulse Ox 93 08/23/23 07:30 O2 Del Method Room Air 08/23/23 04:00 FiO2 21 08/15/23 22:05 Discharge Plan Discharge Patient Disposition: Xfer SNF Condition: Stable Prescriptions: New Stool Softener-Laxative 8.6-50 mg Tablet 2 tab PO BID Qty: 10 0RF polyethylene glycol 3350 17 gram Powder In Packet 17 g PO DAILY Qty: 14 0RF metoprolol tartrate 25 mg Tablet 25 mg PO BID@0900,2100 Qty: 60 0RF oxycodone 5 mg Tablet 5 mg PO Q8H PRN (Reason: Moderate Pain) Qty: 20 0RF Continued cyclobenzaprine 10 mg Tablet 10 mg PO BID PRN (Reason: muscle spasms or pain) omeprazole 40 mg Capsule,Delayed Release(Dr/Ec) 40 mg PO DAILY buspirone 10 mg Tablet 10 mg PO BID Rx Instructions: take 1/2 to 1 tablet by mouth twice daily for 30 days gabapentin 300 mg Capsule See Rx Instructions .ROUTE .COMPLEX Rx Instructions: take 3 capsules by mouth every three days diclofenac sodium 75 mg Tablet,Delayed Release (Dr/Ec) 75 mg PO BID PRN (Reason: inflammation and pain) allopurinol 300 mg Tablet 300 mg PO DAILY Benicar 40 mg Tablet 40 mg PO DAILY rosuvastatin 20 mg Tablet 20 mg PO DAILY Januvia 100 mg Tablet 100 mg PO DAILY [place] SoloStar U-300 Insulin 300 unit/mL (1.5 mL) Insulin Pen See Rx Instructions .ROUTE .COMPLEX Rx Instructions: unknown dose and unknown frequency Xanax 0.25 mg tablet 0.25 mg PO BID PRN (Reason: Anxiety) Discontinued meloxicam 15 mg Tablet 15 mg PO DAILY metoprolol succinate 25 mg Tablet Extended Release 24 Hr 25 mg PO DAILY glipizide 5 mg Tablet 5 mg PO BID Discharge Orders: Discharge Order (Routine); Ordered 08/23/23 Ordered By: Elmer Beck Referrals: [facility] [Outside] Patient Instructions: Altered Mental Status (ED), Opioid Safety Discharge Attestations Time Spent in Discharge Care*: greater than 30 min Quality Metrics Clinical Quality Measures [ No reported AMI, CVA or VTE this stay] Coding Level of Care Code Acute Code for Chg Fwd Diagnoses Visual hallucination R44.1 Constipation K59.00 Acute cholecystitis K81.0 Acute kidney injury N17.9 Dehydration E86.0 Urinary tract infection N39.0 Laryngeal cancer C32.9 Pubic ramus fracture S32.599A Sacral insufficiency fracture M84.48XA Periprosthetic fracture around internal prosthetic left hip joint M97.02XA Altered mental status R41.82
[2023-08-23 09:06] VITALS: RESP 16; O2SAT 93
[2023-08-23] MEDS: oxyCODONE 5 mg IR Tab/Cap PO (09:06)
[2023-08-23 10:07] LABS: SARS Covid-2 Antigen negative (Negative)
[2023-08-23 11:23] LABS: Glucose Point of Care 146 mg/dL (70-110)
[2023-08-23 13:23] VITALS: RESP 16; O2SAT 93
== END 2023-08-23 13:10 | disposition skilled nursing facility (03) | DRG 535 ==
LOC: ER 19:41 → MEDSURG 20:01
PROVIDERS: Family Medicine; Admitting Provider Family Medicine; Emergency Provider Emergency Medicine; Visit Provider Internal Medicine
DX: S32.592A Other specified fracture of left pubis, initial encounter for closed fracture (principal); G93.41 Metabolic encephalopathy; S32.10XA Unspecified fracture of sacrum, initial encounter for closed fracture; M97.02XA Periprosthetic fracture around internal prosthetic left hip joint, initial encounter; N17.9 Acute kidney failure, unspecified; N39.0 Urinary tract infection, site not specified; K81.0 Acute cholecystitis; W01.0XXA Fall on same level from slipping, tripping and stumbling without subsequent striking against object, initial encounter; I10 Essential (primary) hypertension; E78.5 Hyperlipidemia, unspecified; Z96.642 Presence of left artificial hip joint; E11.40 Type 2 diabetes mellitus with diabetic neuropathy, unspecified; M54.50 Low back pain, unspecified; E86.0 Dehydration; K59.00 Constipation, unspecified; E83.39 Other disorders of phosphorus metabolism; R00.0 Tachycardia, unspecified; I95.9 Hypotension, unspecified; Z91.81 History of falling; Z85.21 Personal history of malignant neoplasm of larynx; Z87.891 Personal history of nicotine dependence; Z90.02 Acquired absence of larynx; Z11.52 Encounter for screening for COVID-19
CPT/HCPCS: 36415; 36416; 51702; 70450; 71045; 74018; 74176; 76705; 78227; 80048; 80053; 80306; 80307; 81001; 82009; 82550; 82607; 82962; 83036; 83605; 83735; 84100; 84145; 84443; 84484; 85025; 86140; 87040; 87426; 92507; 92523; 92526; 92610; 93005; 94664; 96365; 96372; 97110; 97116; 97161; 97166; 97530; 97535; 99291; A9537; C9113; J0360; J0696; J0744; J1650; J1815; J2270; J2405; J3475; J3490; J7030; J7040

== ENCOUNTER 2023-10-30 12:10 | Observation (INO) | payer MEDICARE, SELFPAY ==
[2023-10-30] VITALS (19 sets, daily range): BP systolic 93–122; BP diastolic 65–89; PULSE 61–73; RESP 7–17; TEMP 36.2–36.4; O2SAT 95–100
--- NOTE | 2023-10-30 12:17 | CTR_ITS ---
PROCEDURE INFORMATION: Exam: CT Head Without Contrast Exam date and time: 10/30/2023 12:41 PM Age: 67 years old Clinical indication: Altered mental status/memory loss; Confusion or disorientation; Additional info: Encephalopathy, altered mental status TECHNIQUE: Imaging protocol: Computed tomography of the head without contrast. Axial, coronal and sagittal reformatted images were created and reviewed. Radiation optimization: All CT scans at this facility use at least one of these dose optimization techniques: automated exposure control; mA and/or kV adjustment per patient size (includes targeted exams where dose is matched to clinical indication); or iterative reconstruction. COMPARISON: CT head wo con* [id number] 08/15/2023 4:28 PM RADIATION DOSE METRICS: Total DLP (mGy-cm): 1055.28 FINDINGS: Brain: Patchy areas of hypoattenuation in the periventricular and subcortical white matter, consistent with chronic small vessel ischemic disease. Focal, well-circumscribed hypodensities in the basal ganglia, consistent with chronic lacunar infarcts. No CT evidence of acute intracranial hemorrhage or acute territorial infarction. No significant mass effect or midline shift. Basal cisterns patent. Cerebral ventricles: Prominence of the cortical sulci, cisterns and ventricular system, consistent with cerebral and cerebellar volume loss. Paranasal sinuses: Unremarkable. No fluid levels. Mastoid air cells: Grossly unremarkable. Bones: Unremarkable. No acute fracture. Soft tissues: Grossly unremarkable. Vasculature: Calcific atherosclerotic disease in the cavernous internal carotid arteries, as well as the vertebro-basilar system. CT/CT head wo con* [id number]ION: 1[address] No CT evidence of acute intracranial pathology. 2. Additional findings, as above.
--- NOTE | 2023-10-30 12:18 | ECG_ITS ---
[facility] Test Date: 2023-10-30 Pat Name: Ruth Shen Department: Room: Gender: Female Pediatric Hospitalist: : 1955 Requested By: Mi Davis Order Number: [id number] Delilah MD: Jordon Silva M.D. Measurements Intervals [place] Rate: 72 P: 0 [place]: 0 QRS: 63 QRSD: 95 T: -6 QT: 415 QTc: 456 Interpretive Statements SUPRAVENTRICULAR RHYTHM ABNORMAL QRS-T ANGLE [QRS-T AXIS DIFFERENCE > 60] Compared to ECG 08/15/2023 21:34:38 Supraventricular rhythm now present Sinus rhythm no longer present Electronically Signed On 10-30-2023 15:29:02 CDT by Jordon Silva M.D. [id number] f
--- NOTE | 2023-10-30 12:18 | XRR_ITS ---
PROCEDURE INFORMATION: Exam: XR Chest Exam date and time: 10/30/2023 12:20 PM Age: 67 years old Clinical indication: Patient HX: Respiratory distress; Weakness TECHNIQUE: Imaging protocol: Radiologic exam of the chest. Views: 1 view. COMPARISON: CR XR chest 1V portable [id number] 08/15/2023 4:03 PM FINDINGS: Lungs: Limited inspiration. No consolidation. Pleural spaces: Unremarkable. No pleural effusion. No pneumothorax. Heart/Mediastinum: Unremarkable. No cardiomegaly. Bones/joints: No acute findings. XR/XR chest 1V portable [id number] IMPRESSION: No acute findings.
--- NOTE | 2023-10-30 12:28 | ED_ITS ---
HPI - Altered Mental Status 2 General: Chief Complaint: Altered Mental Status Stated Complaint: HYPOTENSION Time Seen by Provider: 10/30/23 12:13 History of Present Illness: 67-year-old female with history of hyper tension, hyperlipidemia, type 2 diabetes, laryngeal cancer with tracheostomy who presents the emergency room from senior living with unresponsiveness and low blood pressures there. On presentation here she is responsive and has a blood pressure of 95/65. Review of Systems 2 General: Reports: ROS unobtainable due to medical condition PFSH ED 2 PFSH: Medical History History of hyperlipidemia History of hypertension History of type 2 diabetes mellitus Laryngeal cancer Surgical History History of left hip replacement History of laryngectomy Family History Sister CAD (coronary artery disease) Social History (Updated 08/15/23 @ 20:15 by Vijay Tipton MD) Smoking and tobacco/nicotine status: former use of tobacco/nicotine Alcohol intake: never Substance/Drug Use: never Physical Exam 2 Narrative: General: Alert, no acute distress. Skin: Warm, dry. Head: Normocephalic, atraumatic. Neck: Supple, trachea midline. Tracheostomy hole. Eye: Extraocular movements are intact. Ears, nose, mouth and throat: Dry oral mucosa Cardiovascular: Regular, Normal peripheral perfusion. Respiratory: Lungs are clear to auscultation, respirations are non-labored, breath sounds are equal, Symmetrical chest wall expansion. Gastrointestinal: Soft, Nontender, Non distended Musculoskeletal: Normal ROM, no deformity. Neurological: Alert, No focal neurological deficit observed. Patient is nonverbal. Psychiatric: Unable to assess Course 2 Vital Signs: Vital signs: Vital Signs Temperature 97.6 F 10/30/23 12:12 Pulse Rate 67 10/30/23 13:30 Respiratory Rate 7 L 10/30/23 13:30 Blood Pressure 103/74 10/30/23 13:30 Pulse Oximetry 97 10/30/23 13:30 Oxygen Delivery Me thod Oxymask 10/30/23 12:12 MDM - Altered Mental Status Medical Decision Making Medical decision making: Differential diagnosis for patient presenting with generalized weakness including but not limited to and based on the above HPI, review of systems and physical exam: Sepsis. Dehydration. Renal failure. Electrolyte abnormalities. Anemia. Congestive heart failure. Hypotension. Coronary syndrome. Hepatitis. Cirrhosis. Infections such as pneumonia, urinary tract infection, [place]ne illness, Cellulitis, Viral infections including influenza and Covid-19. Workup: labwork and lab/exam driven imaging ordered to evaluate, rule in and rule out above pathologies. EKG: Time 1213. Rate 72. Normal sinus rhythm, No ST-T changes, no ectopy, normal CA & QRS intervals, This was reviewed and interpreted by myself the ER physician at 1215. Chest x-ray: No acute process. No infiltrate. No pneumothorax. This was reviewed and interpreted by myself the emergency room physician. I also reviewed the radiology report. CT head: Chronic volume loss. Patchy areas of hypoattenuation in the periventricular and subcortical white matter. This is consistent with chronic small vessel ischemic disease. Also focal well-circumscribed hypodensities in the basal ganglia consistent with chronic lacunar infarcts. No acute intracranial process. no intracranial hemorrhage, no evidence of infarct. no evidence of acute fracture.this was reviewed and interpreted by myself the emergency room physician. I also reviewed the radiology report. Lab Review: Laboratory results were reviewed and interpreted by myself the emergency room physician. No leukocytosis. No anemia. Patient does have acute renal insufficiency with a BUN/creatinine of 34 and 4.4. Urinalysis is clear no hematuria. CT of the abdomen pelvis without contrast: No acute process. No kidney stones or hydronephrosis. No obstructive uropathy. There is some concern for gallbladder stones and thickening. Patient has absolutely no tenderness of her abdomen. This was reviewed and interpreted by myself the emergency room physician. I also reviewed the radiology report. I reviewed the patient's medical record. Reexamination: Patient is quite a bit more alert than she was initially. She is answering questions appropriately with yes or no and mouthing things. She has no tenderness in her abdomen on exam. No increased work of breathing. No focal motor deficits. Assessment and plan: Acute renal insufficiency Dehydration Metabolic encephalopathy/uremia History of laryngeal cancer ?1 L normal saline bolus. Blood pressure has improved some. Admit for continued hydration and repeat lab work -I discussed the patient with the hospitalist on-call who is admitting the patient. - Discussed findings and plan with patient. Answered any questions. - All laboratory values were reviewed and interpreted personally by myself, the ER physician - All imaging was reviewed and interpreted personally by myself, the ER physician. - Evaluation and treatment of this problem were appropriate in the emergency setting Lab Data 10/30/23 12:38 10/30/23 12:[address] 10/30/23 12:17 IMPRESSION: 1. No CT evidence of acute intracranial pathology. 2. Additional findings, as above. Chest X-Ray 10/30/23 12:18 IMPRESSION: No acute findings. Abdomen/Pelvis CT 10/30/23 13:52 IMPRESSION: 1. Moderate gallbladder distension and mild gallbladder wall thickening. No radiodense gallstones. If clinically indicated, ultrasound or HIDA scan would provide a more sensitive evaluation for acute gallbladder pathology. 2. Additional findings, as above. Laboratory Results WBC 8.48 10^3/uL (3.29-11.43) 10/30/23 12:38 RBC 4.26 10^6/uL (3.85-5.65) 10/30/23 12:38 Hgb 13.20 g/dL (11.27-16.99) 10/30/23 12:38 Hct 40.6 % (36-47) 10/30/23 12:38 MCV 95.3 fl (85-98) 10/30/23 12:38 MCH 31.0 pg (27-33) 10/30/23 12:38 MCHC 32.5 g/dL (30-55) 10/30/23 12:38 RDW 14.6 % (12.1-15.1) 10/30/23 12:38 Plt Count 158 10^3/cmm (157-399) 10/30/23 12:38 MPV 11.0 fL (7.4-10.4) H 10/30/23 12:38 Neut % (Auto) 59.9 % 10/30/23 12:38 Lymph % (Auto) 32.2 % 10/30/23 12:38 F[place] % (Auto) 4.6 % 10/30/23 12:38 Eos % (Auto) 2.6 % 10/30/23 12:38 Baso % (Auto) 0.5 % 10/30/23 12:38 Neut # (Auto) 5.08 10^3/uL (1.8-7.7) 10/30/23 12:38 Lymph # (Auto) 2.7 10^3/uL (0.8-4.8) 10/30/23 12:38 Fannin # (Auto) 0.4 10^3/uL (0.2-0.9) 10/30/23 12:38 Eos # (Auto) 0.2 10^3/uL (0.0-0.8) 10/30/23 12:38 Baso # (Auto) 0.0 10^3/uL (0.0-0.1) 10/30/23 12:38 Nucleated RBC % (auto) 0 % 10/30/23 12:38 Nucleated RBCs # 0.0 /100WBC 10/30/23 12:38 Specimen Type Arterial 10/30/23 12:25 Sample Site Brachial, right 10/30/23 12:25 ABG pH 7.39 (7.35-7.45) 10/30/23 12:25 ABG pCO2 36.8 mmHg (35-45) 10/30/23 12:25 ABG pO2 65.4 mmHg (80.0-100.0) L 10/30/23 12:25 ABG HCO3 22.1 mmol/L (22-26) 10/30/23 12:25 ABG O2 Saturation 93.1 10/30/23 12:25 ABG Base Excess -2.5 mmol/L (-2.0-2.0) L 10/30/23 12:25 William Test N/a 10/30/23 12:25 A-a O2 Gradient 5.0 mmHg (5-10) 10/30/23 12:25 Hematocrit 38.8 % (37-47) 10/30/23 12:25 Hgb O2 Saturation 91.5 % (95-100) L 10/30/23 12:25 Carboxyhemoglobin 0.5 %THgb (0.4-20.1) 10/30/23 12:25 Methemoglobin 1.2 % (0.4-1.5) 10/30/23 12:25 Total Hemoglobin 12.7 g/dL (12-16) 10/30/23 12:25 Sodium 133.0 mmol/L (131-143) 10/30/23 12:25 Potassium 3.7 mmol/L (3.5-5.0) 10/30/23 12:25 Glucose 132.0 mg/dL (70-115) H 10/30/23 12:25 Ionized Calcium 1.2 mmol/L (1.1-1.4) 10/30/23 12:25 O2 Delivery Device Simple mask 10/30/23 12:25 O2 Liters/Min 7.0 % 10/30/23 12:25 Device Repair Technician ID Amh 10/30/23 12:25 Sodium 131 mmol/L (136-145) L 10/30/23 12:38 Potassium 4.1 mmol/L (3.5-5.1) 10/30/23 12:38 Chloride 92 mmol/L (98-107) L 10/30/23 12:38 Carbon Dioxide 22 mmol/L (22-29) 10/30/23 12:38 Anion Gap 21.1 (5-19) H 10/30/23 12:38 BUN 34 mg/dL (8-23) H 10/30/23 12:38 Creatinine 4.4 mg/dL (0.5-0.9) H 10/30/23 12:38 GFR Calculation 10.0 mL/min (90-130) L 10/30/23 12:38 Glucose 133 mg/dL (65-115) H 10/30/23 12:38 Calculated Osmolality 282 mOsm/kg (285-295) L 10/30/23 12:38 Lactic Acid 2.5 mmol/L (0.5-2.2) H 10/30/23 12:38 Calcium 9.5 mg/dL (8.5-10.5) 10/30/23 12:38 Total Bilirubin 0.6 mg/dL (0.15-1.2) 10/30/23 12:38 AST 86 U/L (0-32) H 10/30/23 12:38 ALT 75 U/L (0-33) H 10/30/23 12:38 Alkaline Phosphatase 130 U/L (35-105) H 10/30/23 12:38 Troponin T Baseline 74 ng/L (0-10) H 10/30/23 12:38 C-Reactive Protein 3.0 mg/L (0.0-4.9) 10/30/23 12:38 Total Protein 7.3 g/dL (6.6-8.7) 10/30/23 12:38 Albumin 4.2 g/dL (3.5-5.2) 10/30/23 12:38 Globulin 3.1 g/dL (1.3-4.6) 10/30/23 12:38 Urine Color Yellow (Yellow) 10/30/23 13:15 Urine Appearance Clear (CLEAR) 10/30/23 13:15 Urine pH 6 (5-7) 10/30/23 13:15 Ur Specific [place] 1.020 (1.005-1.030) 10/30/23 13:15 Urine Protein 2+ (Negative) H 10/30/23 13:15 Urine Glucose (UA) Norm (Normal) 10/30/23 13:15 Urine Ketones Negative (Negative) 10/30/23 13:15 Urine Blood Neg (Negative) 10/30/23 13:15 Urine Nitrate Negative (Negative) 10/30/23 13:15 Urine Bilirubin Neg (Negative) 10/30/23 13:15 Urine Urobilinogen Norm mg/dL (Negative) 10/30/23 13:15 Ur Leukocyte Esterase Negative (Negative) 10/30/23 13:15 Urine RBC None /hpf (0-2) 10/30/23 13:15 Urine WBC Rare /hpf (0-5) 10/30/23 13:15 Ur Squamous Epith Cells None /hpf (0-5) 10/30/23 13:15 Amorphous Sediment Not Reportable 10/30/23 13:15 Urine Bacteria Trace /hpf (NONE) 10/30/23 13:15 Urine Mucus Trace /hpf 10/30/23 13:15 All radiology interpretation(s) finalized by discharge Discharge Plan Discharge Patient Disposition: Admitted As Inpatient Clinical Impression: Acute renal failure, Dehydration, Metabolic encephalopathy, Hypotension, History of laryngeal cancer Condition: Stable Coding Level of Care Code ED Forestry Scientist for Shayna De La Paz
[2023-10-30 12:36] LABS: ABG PCO2 36.8 mmHg (35-45); ABG PH Result 7.39 (7.35-7.45); Arterial Blood Gas Hematocrit 38.8 % (37-47); Base Excess ABG -2.5 mmol/L (-2.0-2.0); Blood Gas Operator Identificat AMH; Blood Gas Sample Site Brachial, right; Blood Gas Sample Type Arterial; Carboxyhemoglobin 0.5 %THgb (0.4-20.1); HCO3 ABG 22.1 mmol/L (22-26); HGB O2 Sat 91.5 % (95-100); Ionized Calcium Level - ABG 1.2 mmol/L (1.1-1.4); Methemoglobin 1.2 % (0.4-1.5); Oxygen Device SIMPLE MASK; Oxygen Saturation ABG 93.1; PO2 ABG 65.4 mmHg (80.0-100.0); Potassium Level - ABG 3.7 mmol/L (3.5-5.0); Total Hemoglobin 12.7 g/dL (12-16)
[2023-10-30 12:46] LABS: Basophils % 0.5 %; Eosinophils # 0.2 10^3/uL (0.0-0.8); Eosinophils % 2.6 %; Hematocrit 40.6 % (36-47); Lymphocytes # 2.7 10^3/uL (0.8-4.8); Lymphocytes % 32.2 %; Mean Corpuscular HGB Conc 32.5 g/dL (30-55); Mean Corpuscular Volume 95.3 fl (85-98); Monocytes # 0.4 10^3/uL (0.2-0.9); Monocytes % 4.6 %; Neutrophils # 5.08 10^3/uL (1.8-7.7); Neutrophils % 59.9 %; Nucleated Red Blood Cells % 0 %; Platelet Count 158 10^3/cmm (157-399); Red Blood Count 4.26 10^6/uL (3.85-5.65); Red Cell Distribution Width 14.6 % (12.1-15.1); White Blood Count 8.48 10^3/uL (3.29-11.43)
[2023-10-30 13:07] LABS: Alanine Aminotransferase 75 U/L (0-33); Albumin Level 4.2 g/dL (3.5-5.2); Alkaline Phosphatase 130 U/L (35-105); Anion Gap 21.1 (5-19); Aspartate Amino Transferase 86 U/L (0-32); Blood Urea Nitrogen 34 mg/dL (8-23); Calcium 9.5 mg/dL (8.5-10.5); Carbon Dioxide 22 mmol/L (22-29); Chloride 92 mmol/L (98-107); Globulin 3.1 g/dL (1.3-4.6); Glucose 133 mg/dL (65-115); Osmolality Calculated 282 mOsm/kg (285-295); Potassium 4.1 mmol/L (3.5-5.1); Sodium 131 mmol/L (136-145); Total Bilirubin 0.6 mg/dL (0.15-1.2); Total Protein 7.3 g/dL (6.6-8.7)
[2023-10-30 13:08] LABS: Lactic Sepsis W/Reflex 2.5 mmol/L (0.5-2.2); Troponin(5th) Baseline 74 ng/L (0-10)
[2023-10-30] MEDS: sodium chloride 0.9% 1,000 ML 999 ML IV (13:15)
[2023-10-30 13:48] LABS: Urine Appearance Clear (CLEAR); Urine Color Yellow (Yellow); pH Urine 6 (5-7)
[2023-10-30 13:49] LABS: Add Urine Culture? No; Bacteria Urine TRACE /hpf; Bilirubin Urine Neg (Negative); Blood Urine Neg (Negative); Glucose Urine UA Norm (Normal); Ketones Urine Negative (Negative); Leukocyte Esterase Urine Negative (Negative); Mucus Urine TRACE /hpf; Nitrate Urine Negative (Negative); Protein Urine 2+ (Negative); Urobilinogen Urine Norm (Negative); WBC Urine RARE /hpf (0-5)
--- NOTE | 2023-10-30 13:52 | CTR_ITS ---
PROCEDURE INFORMATION: Exam: CT Abdomen And Pelvis Without Contrast Exam date and time: 10/30/2023 2:02 PM Age: 67 years old Clinical indication: Abnormal findings; Abnormal lab test; Abnormal kidney function lab tests; Additional info: Renal failure, R/O obstructive uropathy per hospitalist TECHNIQUE: Imaging protocol: Computed tomography of the abdomen and pelvis without contrast. Axial, coronal and sagittal reformatted images were created and reviewed. Radiation optimization: All CT scans at this facility use at least one of these dose optimization techniques: automated exposure control; mA and/or kV adjustment per patient size (includes targeted exams where dose is matched to clinical indication); or iterative reconstruction. COMPARISON: CT kidney stone [id number] 08/15/2023 6:17 PM RADIATION DOSE METRICS: Total DLP (mGy-cm): 672.54 FINDINGS: Lungs: Linear/discoid stranding, groundglass and dependent subsegmental consolidation at the lung bases, likely due to atelectasis and/or scarring. Liver: Unremarkable. Gallbladder and biliary ducts: Moderate gallbladder distension and mild gallbladder wall thickening. No radiodense gallstones. Pancreas: Mild, diffuse pancreatic atrophy. Spleen: Unremarkable. Adrenal glands: Normal. No mass. Kidneys and ureters: No mass. No radiodense calculi. No hydronephrosis. Stomach and bowel: Moderate amount of retained stool in the colon. No obstruction. No bowel wall thickening. No pneumatosis. Appendix: Normal. Intraperitoneal space: Trace nonspecific free pelvic fluid, likely physiologic. No organized fluid collection. No free air. Vasculature: Mild to moderate atherosclerotic disease. No aneurysm. Lymph nodes: No pathologically enlarged lymph nodes. Urinary bladder: Unremarkable as visualized. Reproductive: Unremarkable. Bones/joints: No acute osseous abnormality. Osteopenia. Degenerative changes. Total bilateral hip arthroplasties in place. Chronic bilateral sacral insufficiency fractures. Chronic deformity of the left superior and inferior pubic rami, as well as the left parasymphyseal pubic bone. Soft tissues: Unremarkable. CT/CT abdomen pelvis wo con [id number] IMPRESSION: 1. Moderate gallbladder distension and mild gallbladder wall thickening. No radiodense gallstones. If clinically indicated, ultrasound or HIDA scan would provide a more sensitive evaluation for acute gallbladder pathology. 2. Additional findings, as above.
--- NOTE | 2023-10-30 14:18 | ECG_ITS ---
[facility] Test Date: 2023-10-30 Pat Name: Ruth Shen Department: Room: Gender: Female Billing Machine Operator: : 1955 Requested By: Mi Davis Order Number: [id number] Delilah MD: Jordon Silva M.D. Measurements Intervals [place] Rate: 63 P: 0 AR: 0 QRS: 75 QRSD: 102 T: 28 QT: 424 QTc: 437 Interpretive Statements SUPRAVENTRICULAR RHYTHM LOW QRS VOLTAGE IN PRECORDIAL LEADS [QRS DEFLECTION < 1.0 mV IN CHEST LEADS] ABNORMAL RHYTHM ECG Compared to ECG 10/30/2023 12:13:36 Low QRS voltage now present Electronically Signed On 10-30-2023 15:29:33 CDT by Jordon Silva M.D. [id number]
[2023-10-30 14:31] LABS: Reflex Lactate Order REFLEX LACTIC ORDERD
[2023-10-30 15:14] LABS: Troponin 5 2HR 60.25 ng/L (0-10)
[2023-10-30 15:15] LABS: Lactic Acid level (Lactate) 1.6 mmol/L (0.5-2.2)
[2023-10-30 15:16] LABS: Troponin 5 2HR Delta -13.75 ABS# (0-10)
--- NOTE | 2023-10-30 16:50 | P.HP_ITS ---
Providers/Chief Complaint 2 Chief Complaint: HYPOTENSION History of Present Illness 67-year-old lady, custodial resident with history of laryngeal cancer status post laryngectomy, HTN, HLD, DM2, was brought in due to unresponsiveness, also hypotension BP 70/48. In ER with finding of significant acute kidney injury, BUN of 34, creatinine 4.4. Blood pressure initially low but slightly better 95/65. Baseline kidney function not entirely known, but did come down to near normal back in August with creatinine down to 1 after ANTHONY. She is feeling somewhat better. She states apart from mild abdominal pain does not have many complaints. CT abdomen pelvis with moderate gallbladder distention and mild gallbladder wall thickening. No radiodense stones. T. bili 0.6, AST 86, ALT 75, alk phos 130. Review of Systems 2 Const: Denies: fever(s), chills, body aches or malaise ENMT: Denies: throat pain, oral sores or ear or mastoid pain Card: Denies: chest pain, edema, pre-syncope or dyspnea on exertion Resp: Denies: dyspnea, productive cough, change in phlegm color or hemoptysis GI: Reports: abdominal pain; Denies: nausea, vomiting, diarrhea, constipation, hematochezia or melena : Denies: flank pain, urinary frequency or hematuria Musc: Denies: back pain, joint swelling or joint redness Skin/Breast: Denies: rash or new lesions Neuro: Denies: headache(s) Medications/Allergies Home Medications Medication Instructions Recorded Confirmed Last Taken Type allopurinol 300 mg tablet 300 mg PO DAILY 08/15/23 08/15/23 Unknown History buspirone 10 mg tablet 10 mg PO BID 08/15/23 08/15/23 Unknown History cyclobenzaprine 10 mg tablet 10 mg PO BID PRN muscle spasms or 08/15/23 08/15/23 Unknown History pain diclofenac sodium 75 mg 75 mg PO BID PRN inflammation and 08/15/23 08/15/23 Unknown History tablet,delayed release pain gabapentin 300 mg capsule See Rx Instructions .Route .COMPLEX 08/15/23 08/15/23 Unknown History insulin glargine U-300 conc 300 See Rx Instructions .Route .COMPLEX 08/15/23 08/15/23 Unknown History unit/mL (1.5 mL) subcutaneous pen (Toujeo SoloStar U-300 Insulin) olmesartan 40 mg tablet (Benicar) 40 mg PO DAILY 08/15/23 08/15/23 Unknown History omeprazole 40 mg capsule,delayed 40 mg PO DAILY 08/15/23 08/15/23 Unknown History release rosuvastatin 20 mg tablet 20 mg PO DAILY 08/15/23 08/15/23 Unknown History sitagliptin phosphate 100 mg 100 mg PO DAILY 08/15/23 08/15/23 Unknown History tablet (Januvia) alprazolam 0.25 mg tablet (Xanax) 0.25 mg PO BID PRN Anxiety 08/18/23 08/18/23 08/14/23 21:00 History metoprolol tartrate 25 mg tablet 25 mg PO BID@0900,2100 #60 tabs 08/23/23 Unknown Rx oxycodone 5 mg tablet 5 mg PO Q8H PRN Moderate Pain #20 08/23/23 Unknown Rx tabs polyethylene glycol 3350 17 gram 17 g PO DAILY #14 ea 08/23/23 Unknown Rx oral powder packet sennosides 8.6 mg-docusate sodium 2 tab PO BID #10 tabs 08/23/23 Unknown Rx 50 mg tablet (Stool Softener-Laxative) Allergies Allergy/AdvReac Type Severity Reaction Status Date / Time No Known Allergies Allergy Verified 08/15/23 20:47 PFSH Acute 2 PFSH: Medical History Constipation Visual hallucination Sacral insufficiency fracture Dehydration Altered mental status Pubic ramus fracture Periprosthetic fracture around internal prosthetic left hip joint Acute cholecystitis Ruled out Acute kidney injury Renal failure Encephalopathy acute Urinary tract infection History of hyperlipidemia History of hypertension History of type 2 diabetes mellitus Laryngeal cancer Surgical History History of left hip replacement History of laryngectomy Family History Sister CAD (coronary artery disease) Social History Smoking and tobacco/nicotine status: former use of tobacco/nicotine Alcohol intake: never Substance/Drug Use: never Vitals/I&O/Wt Last Vital Signs Temp 97.6 F 10/30/23 12:12 Pulse 63 10/30/23 15:30 Resp 9 L 10/30/23 15:30 BP 113/71 10/30/23 14:15 Pulse Ox 100 10/30/23 15:30 O2 Del Method Oxymask 10/30/23 12:12 Physical Exam 2 Const: COMMON NORMALS: patient oriented x3 and alert GENERAL APPEARANCE: c ooperative ORIENTATION/CONSCIOUSNESS: Yes awake HENMT: COMMON NORMALS: oropharynx normal Neck/C-Spine: COMMON NORMALS: no JVD OTHER: Laryngectomy with tracheal stoma Resp: COMMON NORMALS: normal respiratory effort and clear to auscultation bilaterally AUSCULTATION: clear to auscultation bilaterally Cardio: COMMON NORMALS: no JVD, regular rhythm, S1 normal heart sound present, S2 normal heart sound present and No murmurs present (Cardio) RHYTHM: regular rhythm HEART SOUNDS: S1 normal heart sound present and S2 normal heart sound present GI: COMMON NORMALS: Normal to inspection, nondistended, normoactive bowel sounds present, Soft to palpation and non-tender PALPATION: Yes Soft to palpation Extremity: COMMON NORMALS: no joint enlargement and no pedal edema Neuro: COMMON NORMALS: patient oriented x3 and moves all extremities S ENSORIUM/ORIENTATION: Yes alert Skin: COMMON NORMALS: no rashes or lesions noted GENERAL SKIN EXAM: no rashes or lesions noted Data 10/30/23 12:38 10/30/23 12:38 Micro: Microbiology 10/30/23 12:40 Blood Culture - Preliminary Blood SPECIMEN COLLECTED 10/30/23 12:38 Blood Culture - Preliminary Blood SPECIMEN COLLECTED A&P Assessment and plan (1) Acute renal failure: Sudden worsening of kidney function, back in August creatinine 1, seems baseline around 1-1.3, today noted creatinine 4.4, BUN 34, with anion gap 21.1 with metabolic acidosis, potassium 4.1. Reviewed vitals, chemistry, CT abdomen pelvis, noted gallbladder wall distention, mild gallbladder wall thickening, incidental findings, kidneys without hydronephrosis. Urinary bladder unremarkable. Reviewed ER note, discussed with ER provider. Suspected dehydration with poor oral intake. She received fluid challenge, bolus of fluid, continue gentle IV rehydration with LR. Reassess volume status. Monitor for risk of fluid overload with IV fluids. Check CK with noted new transaminitis. Hold Crestor. Noted possibly taking diclofenac as needed, would discontinue and avoid any NSAIDs. (2) Hypotension: Hypotensive on presentation with suspected hypovolemic shock, however, likely also medication toxicity in setting of acute kidney injury. Initial blood pressure 70/48. So far has responded to IV fluid, low blood pressure still soft. Reassess blood pressures. Hold Benicar. Hold gabapentin. (3) Dehydration: Received IV fluid challenge. Continue gentle hydration with LR. Reassess volume status. (4) Metabolic encephalopathy: Acute metabolic encephalopathy with dehydration, ANTHONY, metabolic acidosis, lethargy on presentation, appears to be showing improvement. Continue treatment as above. Reassess. Continue buspirone, fluoxetine, Seroquel. (5) History of laryngeal cancer: Status post laryngectomy with stoma (6) Abnormal gall bladder diagnostic imaging: Incidentally noted on CT. Does have some chronic alk phos elevation. Obtain right upper quadrant ultrasound. Additionally with some new transaminitis, but in setting of dehydration, ANTHONY, check CK for possible rhabdomyolysis. Check hepatitis panel. Plan DM2: Hold Januvia. Check Accu-Cheks. Sliding scale insulin. HTN: Hold Benicar, currently hypotensive History of laryngeal cancer, status post laryngectomy Attestations 2 Medical Necessity Statement*: Place in observation for additional assessment management of ANTHONY with hypotension, dehydration, acute encephalopathy. Diagnoses Acute renal failure N17.9 Hypotension I95.9 Dehydration E86.0 Metabolic encephalopathy G93.41 History of laryngeal cancer Z85.21 Abnormal gall bladder diagnostic imaging R93.2
[2023-10-30 17:53] LABS: Creatine Phosphokinase 201 U/L (26-192)
--- NOTE | 2023-10-30 18:18 | ECG_ITS ---
[facility] Test Date: 2023-10-30 Pat Name: Ruth Shen Department: Room: 253 Gender: Female Ammonia Box Tender: : 1955 Requested By: Mi Davis Order Number: [id number] Reading MD: Jordon Silva M.D. Measurements Intervals [place] Rate: 52 P: 78 AL: 205 QRS: 87 QRSD: 93 T: 34 QT: 442 QTc: 414 Interpretive Statements SINUS BRADYCARDIA LOW QRS VOLTAGE IN PRECORDIAL LEADS [QRS DEFLECTION < 1.0 mV IN CHEST LEADS] Compared to ECG 10/30/2023 14:24:14 Supraventricular rhythm no longer present Electronically Signed On 10-31-2023 9:25:01 CDT by Jordon Silva M.D. [id number]
[2023-10-30 19:54] LABS: Troponin 5 6HR 55.64 ng/L (0-10)
[2023-10-30 19:55] LABS: Troponin 5 6HR Delta -18.36 ng/L (0-12)
[2023-10-30] MEDS: lactated ringers 1,000 ML 75 ML IV (20:10)
[2023-10-30] MEDS: BuSPIRONE 10 mg Tablet PO (20:10)
[2023-10-30] MEDS: enoxaparin 30 mg/0.3 mL Syringe SUBCUT (20:11)
[2023-10-30] MEDS: metoprolol tartrate 25 mg Tablet 12.5 MG PO (20:12)
[2023-10-30] MEDS: quetiapine 25 mg Tablet 50 MG PO (20:12)
[2023-10-30 20:13] LABS: Hepatitis A Antibody IgM Non-Reactive (Nonreactive); Hepatitis B Core IgM Non-Reactive (Nonreactive); Hepatitis B Surface Antigen Non-Reactive (Nonreactive); Hepatitis C Virus Antibody Non-Reactive (Nonreactive)
[2023-10-31] VITALS (8 sets, daily range): BP systolic 102–164; BP diastolic 60–92; PULSE 50–83; RESP 15–20; TEMP 36.3–37; O2SAT 96–100
[2023-10-31 04:48] LABS: Basophils % 0.5 %; Eosinophils # 0.2 10^3/uL (0.0-0.8); Eosinophils % 3.5 %; Hematocrit 35.1 % (36-47); Lymphocytes # 2.5 10^3/uL (0.8-4.8); Lymphocytes % 37.6 %; Mean Corpuscular HGB Conc 32.8 g/dL (30-55); Mean Corpuscular Hemoglobin 30.8 pg (27-33); Mean Corpuscular Volume 94.1 fl (85-98); Mean Platelet Volume 11.3 fL (7.4-10.4); Monocytes # 0.3 10^3/uL (0.2-0.9); Neutrophils # 3.49 10^3/uL (1.8-7.7); Neutrophils % 53.1 %; Nucleated Red Blood Cells % 0 %; Platelet Count 121 10^3/cmm (157-399); Red Blood Count 3.73 10^6/uL (3.85-5.65); Red Cell Distribution Width 14.5 % (12.1-15.1); White Blood Count 6.57 10^3/uL (3.29-11.43)
[2023-10-31 05:09] LABS: Alanine Aminotransferase 69 U/L (0-33); Albumin Level 3.8 g/dL (3.5-5.2); Alkaline Phosphatase 118 U/L (35-105); Anion Gap 17.4 (5-19); Aspartate Amino Transferase 81 U/L (0-32); Blood Urea Nitrogen 33 mg/dL (8-23); Calcium 8.9 mg/dL (8.5-10.5); Carbon Dioxide 23 mmol/L (22-29); Chloride 100 mmol/L (98-107); Creatinine Clr Calc Pharmacy 14.1718; Globulin 2.6 g/dL (1.3-4.6); Glomerular Filtration Rate 12.6 mL/min (90-130); Glucose 89 mg/dL (65-115); Magnesium 2.1 mg/dL (1.7-2.3); Osmolality Calculated 291 mOsm/kg (285-295); Phosphorus 4.5 mg/dL (2.5-4.5); Potassium 3.4 mmol/L (3.5-5.1); Sodium 137 mmol/L (136-145); Total Bilirubin 0.5 mg/dL (0.15-1.2); Total Protein 6.4 g/dL (6.6-8.7)
[2023-10-31 07:05] LABS: Glucose Point of Care 82 mg/dL (70-110)
[2023-10-31 07:41] LABS: Glucose Point of Care 90 mg/dL (70-110)
[2023-10-31] MEDS: metoprolol tartrate 25 mg Tablet 12.5 MG PO ×2 (08:56→21:04)
[2023-10-31] MEDS: fluoxetine 20 mg Capsule PO (08:56)
[2023-10-31] MEDS: BuSPIRONE 10 mg Tablet PO ×2 (08:56→17:39)
[2023-10-31] MEDS: insulin glargine 100 units/1 mL 10 UNIT SUBCUT (08:59)
[2023-10-31] MEDS: lactated ringers 1,000 ML 75 ML IV ×2 (09:02→21:05)
[2023-10-31] MEDS: potassium chloride oral liq 20 mEq/15 mL UDC 40 MEQ PO (09:33)
[2023-10-31] MEDS: ALPRAZolam 0.5 mg Tablet 0.25 MG PO ×2 (11:25→17:39)
--- NOTE | 2023-10-31 12:23 | P.PN_ITS ---
Subjective 2 Subjective: Reports she wants something to eat. Denies any other concerns. No pain. Communication occurred through writing. Medications: Reviewed: Yes Vitals/I&O/Wt Last Vital Signs Temp 97.7 F 10/31/23 08:00 Pulse 59 L 10/31/23 09:32 Resp 20 H 10/31/23 09:32 BP 113/77 10/31/23 08:00 Pulse Ox 96 10/31/23 09:32 O2 Del Method Venturi Mask 10/31/23 09:32 O2 Flow Rate 11 10/31/23 09:32 FiO2 50 10/31/23 09:32 10/30/23 10/31/23 10/31/23 22:59 06:59 14:59 Intake Total 1000 / 1000 965 / 965 Balance 1000 / 1000 965 / 965 Weight last 48 hrs Weight 56.563 kg Weight 54.204 kg Physical Exam 2 Narrative: General exam no distress Neck is supple, stoma noted Cardiovascular regular rate and rhythm Lungs clear Abdomen is soft Extremities no cyanosis clubbing or edema Data 10/31/23 03:44 10/31/23 03:44 Micro: Microbiology 10/30/23 12:40 Blood Culture - Preliminary Blood SPECIMEN COLLECTED 10/30/23 12:38 Blood Culture - Preliminary Blood SPECIMEN COLLECTED A&P Assessment and plan (1) Acute renal failure: Sudden worsening of kidney function, back in August creatinine 1, seems baseline around 1-1.3, today noted creatinine 4.4, BUN 34, with anion gap 21.1 with metabolic acidosis, potassium 4.1. Reviewed vitals, chemistry, CT abdomen pelvis, noted gallbladder wall distention, mild gallbladder wall thickening, incidental findings, kidneys without hydronephrosis. Urinary bladder unremarkable. Suspected dehydration with poor oral intake. Continue fluids CK minorly elevated. Can reinitiate statin Recheck BMP tomorrow Avoid all renal toxic medication including anti-inflammatories Initiating diet today, resuming previous diet. Did have ST evaluation as well. (2) Hypotension: Hypotensive on presentation with suspected hypovolemic shock, however, likely also medication toxicity in setting of acute kidney injury. Initial blood pressure 70/48. So far has responded to IV fluid, low blood pressure still soft. Reassess blood pressures. Hold Benicar. Hold gabapentin. Much improved. Continue metoprolol at lower dose. (3) Dehydration: Received IV fluid challenge. Continue gentle hydration with LR. Reassess volume status. Continue IV fluids today (4) Metabolic encephalopathy: Acute metabolic encephalopathy with dehydration, ANTHONY, metabolic acidosis, lethargy on presentation, appears to be showing improvement. Continue treatment as above. Reassess. Continue buspirone, fluoxetine, Seroquel. Resolved (5) History of laryngeal cancer: Status post laryngectomy with stoma (6) Abnormal gall bladder diagnostic imaging: Incidentally noted on CT. Does have some chronic alk phos elevation. Gallbladder ultrasound with mild hydrops, sludge likely from poor p.o. intake. Improved. Hepatitis panel negative. Plan Hypokalemia, supplement potassium DM2: Hold Januvia. Check Accu-Cheks. Sliding scale insulin. HTN: Hold Benicar, renal failure History of laryngeal cancer, status post laryngectomy Attestations 2 Medical Necessity Statement*: Needs continued hospitalization for IV fluids, close follow-up of renal dysfunction in this patient with chance for recurrent dehydration secondary to poor oral intake. Needs daily labs. Still risk for worsening. Diagnoses Acute renal failure N17.9 Hypotension I95.9 Dehydration E86.0 Metabolic encephalopathy G93.41 History of laryngeal cancer Z85.21 Abnormal gall bladder diagnostic imaging R93.2 Time Spent (min) 23
--- NOTE | 2023-10-31 19:10 | US_ITS ---
WS: [id number] RIGHT UPPER QUADRANT ULTRASOUND HISTORY: dilation, wall thickening on CT COMPARISON: CT 10/30/2023, gallbladder ultrasound 08/16/2023 Liver: 13.7 cm in length. Normal size liver and echogenicity. No bile duct dilatation or mass. Portal Vein: Normal hepatopetal flow with monophasic waveform. Gallbladder: Gallbladder is not abnormal. There is mild distention and gallbladder hydrops. Heterogen eous material within the gallbladder. Multiple small soft tissue masses which were not present on the recent ultrasound of 08/16/2023. These are nonvascular masses. Gallbladder wall is only slightly thick ened. There is no pericholecystic fluid. CBD: 0.5 cm Pancreas: Poorly visualized. Right kidney: 8.5 cm in length. Mild atrophy RIGHT kidney with no obstruction. Aorta and IVC: Mild atherosclerosis. No ascites. US/US gall bladder [id number] IMPRESSION: 1. Quality this examination is compromised by patient's clinical condition and body habitus. 2. Very mild gallbladder hydrops and gallbladder wall thickening. 3. New since 08/16/2023 are nonvascular soft tissue masses within the gallbladde r lumen. Is this echogenic material is new this is probably tumefactive sludge related to prolonged fasting state. 4. Common bile duct evaluation is very limited. Only a small portion is identi fied but does appear normal. CBD on the recent CT was difficult to visualize du e to extensive motion but not definitely dilated.
[2023-10-31] MEDS: enoxaparin 30 mg/0.3 mL Syringe SUBCUT (21:04)
[2023-10-31] MEDS: quetiapine 25 mg Tablet 50 MG PO (21:04)
--- NOTE | 2023-10-31 22:02 | PC.NURSE ---
Patient's POC Glucose currently 104.
[2023-10-31 22:14] LABS: Glucose Point of Care 76 mg/dL (70-110)
[2023-10-31 22:14] LABS: Glucose Point of Care 104 mg/dL (70-110)
[2023-10-31 22:14] LABS: Glucose Point of Care 111 mg/dL (70-110)
[2023-11-01] VITALS: BP 124/85; PULSE 75; RESP 16; TEMP 36.5; O2SAT 99
[2023-11-01 04:00] VITALS: BP 144/91; PULSE 57; RESP 18; TEMP 36.7; O2SAT 90
[2023-11-01 05:16] LABS: Basophils % 0.5 %; Eosinophils # 0.2 10^3/uL (0.0-0.8); Hematocrit 35.8 % (36-47); Lymphocytes # 1.5 10^3/uL (0.8-4.8); Lymphocytes % 25.5 %; Mean Corpuscular Hemoglobin 31.8 pg (27-33); Mean Corpuscular Volume 96.5 fl (85-98); Mean Platelet Volume 11.2 fL (7.4-10.4); Monocytes # 0.3 10^3/uL (0.2-0.9); Monocytes % 4.1 %; Neutrophils # 4.01 10^3/uL (1.8-7.7); Neutrophils % 66.6 %; Nucleated Red Blood Cells % 0 %; Platelet Count 138 10^3/cmm (157-399); Red Blood Count 3.71 10^6/uL (3.85-5.65); Red Cell Distribution Width 14.1 % (12.1-15.1); White Blood Count 6.03 10^3/uL (3.29-11.43)
[2023-11-01 05:32] LABS: Alanine Aminotransferase 67 U/L (0-33); Albumin Level 4.1 g/dL (3.5-5.2); Alkaline Phosphatase 146 U/L (35-105); Aspartate Amino Transferase 82 U/L (0-32); Blood Urea Nitrogen 23 mg/dL (8-23); Calcium 9.1 mg/dL (8.5-10.5); Carbon Dioxide 21 mmol/L (22-29); Chloride 100 mmol/L (98-107); Creatinine Clr Calc Pharmacy 21.5918; Glomerular Filtration Rate 20.1 mL/min (90-130); Glucose 108 mg/dL (65-115); Osmolality Calculated 284 mOsm/kg (285-295); Sodium 135 mmol/L (136-145); Total Bilirubin 0.5 mg/dL (0.15-1.2); Total Protein 7.1 g/dL (6.6-8.7)
[2023-11-01 05:37] LABS: Anion Gap 17.5 (5-19); Potassium 3.5 mmol/L (3.5-5.1)
[2023-11-01 06:34] LABS: Glucose Point of Care 122 mg/dL (70-110)
[2023-11-01 07:26] VITALS: BP 120/86; PULSE 77; RESP 18; TEMP 36.5; O2SAT 97
[2023-11-01 08:19] VITALS: PULSE 60; RESP 18; O2SAT 95
[2023-11-01] MEDS: ALPRAZolam 0.5 mg Tablet 0.25 MG PO (08:48)
[2023-11-01] MEDS: BuSPIRONE 10 mg Tablet PO (08:48)
[2023-11-01] MEDS: fluoxetine 20 mg Capsule PO (08:48)
[2023-11-01] MEDS: insulin glargine 100 units/1 mL 10 UNIT SUBCUT (08:50)
--- NOTE | 2023-11-01 10:36 | P.DS_ITS ---
Discharge Providers Date of Admission: 10/30/23 14:49 Date of Discharge: November 01, 2023 Attending Provider at Admission: Jesus Light Attending Provider at Discharge: Kamron Segovia MD Diagnoses at Discharge Discharge Diagnosis (1) Acute renal failure: Status: Acute (2) Hypotension: Status: Acute (3) Dehydration: Status: Acute (4) Metabolic encephalopathy: Status: Acute (5) History of laryngeal cancer: Status: Acute (6) Abnormal gall bladder diagnostic imaging: Status: Acute Reason for Visit Reason for Visit: HYPOTENSION Hospital Course Hospital Course Ruth is a 67-year-old white female nursing facility resident with history of laryngeal cancer with resection who presented with acute kidney injury. She was hypotensive, and dehydrated. She was hydrated with significant improvement in her blood pressure. CT did not demonstrate any obstruction to her renal system. Mild gallbladder wall thickening was noted. Liver function test slightly high but bilirubin was normal. The following day she was doing much better and requesting to eat. She was able to eat without difficulty. Speech therapy directed consistency. An ultrasound was performed which demonstrated mild gallbladder wall thickening and some sludge but no evidence for acute cholecystitis. Anti-inflammatories, Januvia, were held and fluids were given and renal function improved every day. CK was checked and no evidence of rhabdo. By 10/31 her creatinine had improved significantly. It was down to 2.4. Liver function test mild elevation. She will discharge home, to the nursing facility. Fluid should be encouraged. Low-fat low-cholesterol diet. Multiple medication changes. Avoid all anti-inflammatories. Multiple other medications discontinued for renal function. She was given opportunity ask questions, and agreed with discharge to nursing facility. Physical Exam Narrative: General exam no distress Neck is supple, stoma from trach noted Cardiovascular regular rate and rhythm Lungs clear Abdomen is soft Extremities no cyanosis clubbing or edema Discharge Data Studies Completed and Pending Completed Studies During Hospitalization Category Date Time Status CT abdomen pelvis wo con [id number] Stat Cat Scan 10/30/23 13:[address] head wo con* [id number] Stat Cat Scan 10/30/23 12:17 Completed XR chest 1V portable [id number] Stat Exams 10/30/23 12:18 Completed US gall bladder [id number] Routine Ultrasound 10/31/23 19:10 Completed Pending at discharge Category Date Time Status Blood Culture Stat Lab 10/30/23 12:40 Results Complete Blood Count w/Auto AM LABS Lab 11/02/23 04:00 Ordered Comprehensive Metabolic Panel AM LABS Lab 11/02/23 04:00 Ordered Radiology Impressions Head CT 10/30/23 12:17 IMPRESSION: 1. No CT evidence of acute intracranial pathology. 2. Additional findings, as above. Chest X-Ray 10/30/23 12:18 IMPRESSION: No acute findings. Abdomen/Pelvis CT 10/30/23 13:52 IMPRESSION: 1. Moderate gallbladder distension and mild gallbladder wall thickening. No radiodense gallstones. If clinically indicated, ultrasound or HIDA scan would provide a more sensitive evaluation for acute gallbladder pathology. 2. Additional findings, as above. Gallbladder Ultrasound 10/31/23 19:10 IMPRESSION: 1. Quality this examination is compromised by patient's clinical condition and body habitus. 2. Very mild gallbladder hydrops and gallbladder wall thickening. 3. New since 08/16/2023 are nonvascular soft tissue masses within the gallbladder lumen. Is this echogenic material is new this is probably tumefactive sludge related to prolonged fasting state. 4. Common bile duct evaluation is very limited. Only a small portion is i dentified but does appear normal. CBD on the recent CT was difficult to visualize due to extensive motion but not definitely dilated. Laboratory Results WBC 6.03 10^3/uL (3.29-11.43) 11/01/23 04:38 RBC 3.71 10^6/uL (3.85-5.65) L 11/01/23 04:38 Hgb 11.80 g/dL (11.27-16.99) 11/01/23 04:38 Hct 35.8 % (36-47) L 11/01/23 04:38 MCV 96.5 fl (85-98) 11/01/23 04:38 MCH 31.8 pg (27-33) 11/01/23 04:38 MCHC 33.0 g/dL (30-55) 11/01/23 04:38 RDW 14.1 % (12.1-15.1) 11/01/23 04:38 Plt Count 138 10^3/cmm (157-399) L 11/01/23 04:38 MPV 11.2 fL (7.4-10.4) H 11/01/23 04:38 Neut % (Auto) 66.6 % 11/01/23 04:38 Lymph % (Auto) 25.5 % 11/01/23 04:38 [place] % (Auto) 4.1 % 11/01/23 04:38 Eos % (Auto) 3.0 % 11/01/23 04:38 Baso % (Auto) 0.5 % 11/01/23 04:38 Neut # (Auto) 4.01 10^3/uL (1.8-7.7) 11/01/23 04:38 Lymph # (Auto) 1.5 10^3/uL (0.8-4.8) 11/01/23 04:38 [place] # (Auto) 0.3 10^3/uL (0.2-0.9) 11/01/23 04:38 Eos # (Auto) 0.2 10^3/uL (0.0-0.8) 11/01/23 04:38 Baso # (Auto) 0.0 10^3/uL (0.0-0.1) 11/01/23 04:38 Nucleated RBC % (auto) 0 % 11/01/23 04:38 Nucleated RBCs # 0.0 /100WBC 11/01/23 04:38 Specimen Type Arterial 10/30/23 12:25 Sample Site Brachial, right 10/30/23 12:25 ABG pH 7.39 (7.35-7.45) 10/30/23 12:25 ABG pCO2 36.8 mmHg (35-45) 10/30/23 12:25 ABG pO2 65.4 mmHg (80.0-100.0) L 10/30/23 12:25 ABG HCO3 22.1 mmol/L (22-26) 10/30/23 12:25 ABG O2 Saturation 93.1 10/30/23 12:25 ABG Base Excess -2.5 mmol/L (-2.0-2.0) L 10/30/23 12:25 William Test N/a 10/30/23 12:25 A-a O2 Gradient 5.0 mmHg (5-10) 10/30/23 12:25 Hematocrit 38.8 % (37-47) 10/30/23 12:25 Hgb O2 Saturation 91.5 % (95-100) L 10/30/23 12:25 Carboxyhemoglobin 0.5 %THgb (0.4-20.1) 10/30/23 12:25 Methemoglobin 1.2 % (0.4-1.5) 10/30/23 12:25 Total Hemoglobin 12.7 g/dL (12-16) 10/30/23 12:25 Sodium 133.0 mmol/L (131-143) 10/30/23 12:25 Potassium 3.7 mmol/L (3.5-5.0) 10/30/23 12:25 Glucose 132.0 mg/dL (70-115) H 10/30/23 12:25 Ionized Calcium 1.2 mmol/L (1.1-1.4) 10/30/23 12:25 O2 Delivery Device Simple mask 10/30/23 12:25 O2 Liters/Min 7.0 % 10/30/23 12:25 Medicine Teacher ID Amh 10/30/23 12:25 Sodium 135 mmol/L (136-145) L 11/01/23 04:38 Potassium 3.5 mmol/L (3.5-5.1) 11/01/23 04:38 Chloride 100 mmol/L (98-107) 11/01/23 04:38 Carbon Dioxide 21 mmol/L (22-29) L 11/01/23 04:38 Anion Gap 17.5 (5-19) 11/01/23 04:38 BUN 23 mg/dL (8-23) 11/01/23 04:38 Creatinine 2.4 mg/dL (0.5-0.9) H 11/01/23 04:38 GFR Calculation 20.1 mL/min (90-130) L 11/01/23 04:38 Glucose 108 mg/dL (65-115) 11/01/23 04:38 POC Glucose 122 mg/dL (70-110) H 11/01/23 06:27 Calculated Osmolality 284 mOsm/kg (285-295) L 11/01/23 04:38 Lactic Acid 2.5 mmol/L (0.5-2.2) H 10/30/23 12:38 Lactic Acid (Sepsis) 1.6 mmol/L (0.5-2.2) 10/30/23 14:49 Calcium 9.1 mg/dL (8.5-10.5) 11/01/23 04:38 Phosphorus 4.5 mg/dL (2.5-4.5) 10/31/23 03:44 Magnesium 2.0 mg/dL (1.7-2.3) 11/01/23 04:38 Total Bilirubin 0.5 mg/dL (0.15-1.2) 11/01/23 04:38 AST 82 U/L (0-32) H 11/01/23 04:38 ALT 67 U/L (0-33) H 11/01/23 04:38 Alkaline Phosphatase 146 U/L (35-105) H 11/01/23 04:38 Creatine Kinase 201 U/L (26-192) H 10/30/23 14:49 Troponin T Baseline 74 ng/L (0-10) H 10/30/23 12:38 Troponin T 120 Minute 60.25 ng/L (0-10) H 10/30/23 14:49 Delta Troponin T -13.75 ABS# (0-10) L 10/30/23 14:49 Troponin T Hi Sens 6Hr 55.64 ng/L (0-10) H 10/30/23 18:42 Troponin T Hi Sens 6Hr Delta -18.36 ng/L (0-12) L 10/30/23 18:42 C-Reactive Protein 3.0 mg/L (0.0-4.9) 10/30/23 12:38 Total Protein 7.1 g/dL (6.6-8.7) 11/01/23 04:38 Albumin 4.1 g/dL (3.5-5.2) 11/01/23 04:38 Globulin 3.0 g/dL (1.3-4.6) 11/01/23 04:38 Urine Color Yellow (Yellow) 10/30/23 13:15 Urine Appearance Clear (CLEAR) 10/30/23 13:15 Urine pH 6 (5-7) 10/30/23 13:15 Ur Specific [place] 1.020 (1.005-1.030) 10/30/23 13:15 Urine Protein 2+ (Negative) H 10/30/23 13:15 Urine Glucose (UA) Norm (Normal) 10/30/23 13:15 Urine Ketones Negative (Negative) 10/30/23 13:15 Urine Blood Neg (Negative) 10/30/23 13:15 Urine Nitrate Negative (Negative) 10/30/23 13:15 Urine Bilirubin Neg (Negative) 10/30/23 13:15 Urine Urobilinogen Norm mg/dL (Negative) 10/30/23 13:15 Ur Leukocyte Esterase Negative (Negative) 10/30/23 13:15 Urine RBC None /hpf (0-2) 10/30/23 13:15 Urine WBC Rare /hpf (0-5) 10/30/23 13:15 Ur Squamous Epith Cells None /hpf (0-5) 10/30/23 13:15 Amorphous Sediment Not Reportable 10/30/23 13:15 Urine Bacteria Trace /hpf (NONE) 10/30/23 13:15 Urine Mucus Trace /hpf 10/30/23 13:15 Hepatitis A IgM Ab Non-reactive (Nonreactive) 10/30/23 12:38 Hep Bs Antigen Non-reactive (Nonreactive) 10/30/23 12:38 Hep B Core IgM Ab Non-reactive (Nonreactive) 10/30/23 12:38 Hepatitis C Antibody Non-reactive (Nonreactive) 10/30/23 12:38 Vitals Last Vital Signs Temp 97.7 F 11/01/23 07:26 Pulse 60 11/01/23 08:19 Resp 18 11/01/23 08:19 BP 120/86 11/01/23 07:26 Pulse Ox 95 11/01/23 08:19 O2 Del Method Venturi Mask 11/01/23 08:19 O2 Flow Rate 11 10/31/23 09:32 FiO2 50 11/01/23 08:19 Discharge Plan Discharge Patient Disposition: Xfer SNF Condition: Stable Prescriptions: New metoprolol tartrate 25 mg Tablet 12.5 mg PO BID@0900,2100 Qty: 30 0RF insulin glargine [Lantus U-100 Insulin] 100 unit/mL Solution 10 unit SUBCUT DAILY Qty: 10 0RF fluoxetine 20 mg Capsule 20 mg PO DAILY Qty: 30 0RF Continued omeprazole 40 mg Capsule,Delayed Release(Dr/Ec) 40 mg PO DAILY buspirone 10 mg Tablet 10 mg PO BID alprazolam [Xanax] 0.25 mg tablet 0.25 mg PO BID sennosides-docusate sodium [Stool Softener-Laxative] 8.6-50 mg Tablet 2 tab PO BID Qty: 10 0RF polyethylene glycol 3350 17 gram Powder In Packet 17 g PO DAILY Qty: 14 0RF oxycodone 5 mg Tablet 5 mg PO Q8H PRN (Reason: Moderate Pain) Qty: 20 0RF Discontinued cyclobenzaprine 10 mg Tablet 10 mg PO BID PRN (Reason: muscle spasms or pain) gabapentin 300 mg Capsule See Rx Instructions .ROUTE .COMPLEX Rx Instructions: take 3 capsules by mouth every three days diclofenac sodium 75 mg Tablet,Delayed Release (Dr/Ec) 75 mg PO BID PRN (Reason: inflammation and pain) allopurinol 300 mg Tablet 300 mg PO DAILY olmesartan [Benicar] 40 mg Tablet 40 mg PO DAILY rosuvastatin 20 mg Tablet 20 mg PO DAILY Januvia 100 mg Tablet 100 mg PO DAILY insulin glargine U-300 conc [Toujeo SoloStar U-300 Insulin] 300 unit/mL (1.5 mL) Insulin Pen See Rx Instructions .ROUTE .COMPLEX Rx Instructions: 14U sub-q QHS metoprolol tartrate 25 mg Tablet 25 mg PO BID@0900,2100 Qty: 60 0RF Discharge Orders: Discharge Order (Routine); Ordered 11/01/23 Ordered By: Kamron Segovia Referrals: [facility] [place], [Staff Physician] - Discharge Diet: Diabetic and Low Fat Discharge Activity: Increase activity as tolerated Patient Instructions: Altered Mental Status (ED), Opioid Safety Activity Restrictions/Additional Instructions: Take all medicine as directed Note the patient was full code here at the hospital As directed Note the patient was full code here at the hospital Repeat CBC and CMP in 5 days, reviewing liver function test Low-fat, diabetic diet Return for any concerns Note multiple medication discontinuations and dose changes Patient had mildly abnormal gallbladder ultrasound demonstrating some sludge, mild gallbladder wall thickening. No direct evidence for cholecystitis. Discharge creatinine 2.4 Encourage p.o. fluid intake. Discharge Attestations Time Spent in Discharge Care*: greater than 30 min Quality Metrics Clinical Quality Measures [ No reported AMI, CVA or VTE this stay] Coding Level of Care Code 89521 Total time (in minutes) for Discharge: 42 Diagnoses Acute renal failure N17.9 Hypotension I95.9 Dehydration E86.0 Metabolic encephalopathy G93.41 History of laryngeal cancer Z85.21 Abnormal gall bladder diagnostic imaging R93.2
[2023-11-01] MEDS: lactated ringers 1,000 ML 75 ML IV (11:03)
[2023-11-01 11:18] VITALS: BP 140/90; PULSE 71; RESP 16; TEMP 36.6; O2SAT 94
[2023-11-01 11:31] LABS: Glucose Point of Care 98 mg/dL (70-110)
--- NOTE | 2023-11-01 11:57 | PC.NURSE ---
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
--- NOTE | 2023-11-01 12:23 | PC.NURSE ---
This nurse called report to Kaylee at [facility], [facility] at 1221.
[2023-11-01 12:44] LABS: SARS Covid-2 Antigen Negative (Negative)
--- NOTE | 2023-11-01 15:13 | XR_ITS ---
WS: [id number] XR knee LT 1-2V [id number] REASON FOR EXAM: pain, fall FINDINGS: No acute fracture. Minimal narrowing of the medial joint space with medial subchondral sclerosis. The lateral knee joint space is intact and well maintained. Patellofemoral joint space is intact. No soft tissue abnormality. XR/XR knee LT 1-2V 20092 IMPRESSION: No acute abnormality.
--- NOTE | 2023-11-01 15:13 | XR_ITS ---
WS: [id number] XR hip LT 2-3V wo/w pel* [id number] REASON FOR EXAM: fall FINDINGS: Total left hip arthroplasty. The components of the prosthesis are intact and in proper position and alignment. There is a healed/healing acetabular anterior column fracture and inferior pubic ramus seen on previo us examination of the abdomen 08/19/2023. No soft tissue abnormality. XR/XR hip LT 2-3V wo/w pel* [id number] IMPRESSION: No acute fracture or dislocation. Total left hip arthroplasty. Healed/healing fractures of the left inferior pubic ramus and acetabular anteri or column.
== END 2023-11-01 15:59 | disposition skilled nursing facility (03) ==
LOC: ER 16:44 → MEDSURG 18:28
PROVIDERS: Admitting Provider Internal Medicine; Emergency Provider Emergency Medicine; Visit Provider Internal Medicine
DX: N17.9 Acute kidney failure, unspecified (principal); I95.9 Hypotension, unspecified; E86.0 Dehydration; G93.41 Metabolic encephalopathy; Z85.21 Personal history of malignant neoplasm of larynx; R93.2 Abnormal findings on diagnostic imaging of liver and biliary tract; M25.562 Pain in left knee; Z96.642 Presence of left artificial hip joint; E87.6 Hypokalemia; E11.9 Type 2 diabetes mellitus without complications; I10 Essential (primary) hypertension; Z91.81 History of falling
CPT/HCPCS: 36415; 36416; 36600; 70450; 71045; 73502; 73560; 74176; 76705; 80051; 80053; 80074; 81001; 82330; 82550; 82805; 82962; 83605; 83735; 84100; 84484; 85025; 86140; 87040; 87426; 92523; 92610; 93005; 94664; 96360; 96372; 99285; G0378; J1650; J1815; J7030; J7120

== ENCOUNTER 2023-11-18 09:15 | Inpatient (IN) | payer MEDICARE, SELFPAY ==
[2023-11-18] VITALS (62 sets, daily range): BP systolic 78–162; BP diastolic 55–108; PULSE 57–130; RESP 0–19; TEMP 36.4–36.9; O2SAT 95–100; BMI 20.5
--- NOTE | 2023-11-18 09:37 | ED_ITS ---
HPI - General Adult 2 General: Chief complaint: Shortness of Breath/Dyspnea Stated complaint: hypotension Time Seen by Provider: 11/18/23 09:21 History of Present Illness: 67-year-old female history of laryngeal cancer presents emergency room hypotensive and hypoxic. She normally lives at the long term she has a hand history of laryngeal cancer and has a tracheostomy in place. She is complaining of shortness of breath today. group home also reported blood pressures in this 60-80 systolic range. She is awake to mouth answers to questions and is very responsive seems appropriate. She denies chest pain or abdominal pain. Associated symptoms: Deny chest pain, dyspnea or rash Review of Systems 2 Const: Denies: fever(s) or chills Card: Denies: chest pain Resp: Denies: dyspnea GI: Denies: abdominal pain : Denies: dysuria, urinary frequency or urinary urgency Musc: Denies: neck pain or back pain Skin/Breast: Denies: rash PFSH ED 2 PFSH: Medical History (Updated 11/19/23 @ 14:00 by Fabian Pineda MD) Sacral insufficiency fracture Transaminitis Hypertension Type 2 diabetes mellitus CKD (chronic kidney disease) Constipation Visual hallucination Dehydration Altered mental status Pubic ramus fracture Periprosthetic fracture around internal prosthetic left hip joint Acute cholecystitis Ruled out Encephalopathy acute Urinary tract infection History of hyperlipidemia Laryngeal cancer Surgical History History of left hip replacement History of laryngectomy Family History Sister CAD (coronary artery disease) Social History Smoking and tobacco/nicotine status: former use of tobacco/nicotine Alcohol intake: never Substance/Drug Use: never Physical Exam 2 Const: GENERAL APPEARANCE: cooperative ORIENTATION/CONSCIOUSNESS: Yes awake HENMT: COMMON NORMALS: normocephalic, atraumatic and hearing grossly normal bilaterally HEAD & SCALP: normocephalic and atraumatic Resp: COMMON NORMALS: normal respiratory effort, No retractions, No use of accessory muscles and clear to auscultation bilaterally AUSCULTATION: clear to auscultation bilaterally Cardio: COMMON NORMALS: regular rate, regular rhythm and No murmurs present (Cardio) RATE: regular rate RHYTHM: regular rhythm GI: COMMON NORMALS: Soft to palpation and No hepatosplenomegaly present A USCULTATION: Yes normoactive bowel sounds PALPATION: Yes Soft to palpation, No Tenderness to palpation present (GI), No Guarding due to palpation present (GI) and Yes No hepatosplenomegaly present Extremity: COMMON NORMALS: normal to inspection, capillary refill normal, no clubbing, cyanosis or edema, no calf tenderness and no pedal edema Skin: COMMON NORMALS: no rashes or lesions noted GENERAL SKIN EXAM: no rashes or lesions noted Course 2 Vital Signs: Vital signs: Vital Signs Temperature 97.4 F L 11/21/23 12:00 Pulse Rate 90 11/21/23 13:29 Respiratory Rate 16 11/21/23 14:01 Blood Pressure 160/98 11/21/23 12:00 Pulse Oximetry 3 L 11/21/23 13:36 Oxygen Delivery Me thod CAG 11/21/23 13:36 Oxygen Flow Rate 6 11/21/23 13:36 Fraction of Inspir ed Oxygen 28 11/21/23 13:36 MDM - General Adult Medical Decision Making Patient arrived hypotensive. Was given fluids and started on Levophed. Source of infection and sepsis seems to be from cystitis. Additionally she has acute kidney injury. CT did not show any significant abnormality. She is mildly hypokalemic as well. Her lactic acid transaminases are also elevated. Moderate gallbladder distention. She has known cholelithiasis in the past has had multiple evaluations gallbladder ultrasound did not show any dilation of the duct. Discussed with hospitalist orders written will admit Lab Data 11/21/23 02:57 11/21/23 02:57 Radiology Impressions Abdomen/Pelvis CT 11/18/23 10:57 IMPRESSION: 1. Moderate gallbladder distension with suspected cholelithiasis or sludge. Cholecystitis cannot be excluded. Gallbladder ultrasound or nuclear hepatobiliary scan may be beneficial. 2. Periprosthetic fracture of the left acetabulum, bilateral sacral insufficiency fractures, left superior and inferior pubic rami fractures are again noted. 3. No acute obstructive uropathy identified. COMMENTS: Please note that lack of IV contrast limits both the sensitivity, and the specificity, of the examination, particularly as regards focal lesions in the solid organs. Chest X-Ray 11/18/23 11:00 IMPRESSION: No acute cardiopulmonary abnormality identified. Gallbladder Ultrasound 11/18/23 12:22 IMPRESSION: Current examination appears similar to the ultrasound done 10/31/2023. Likely cholelithiasis and bile stasis concretions with gallbladder hydrops. Not able to confirm since patient cannot be turned into the decubitus position. No bile duct dilatation identified. Normal biliary scan 08/18/2023. Cholangiopancreatography MRI 11/18/23 13:57 IMPRESSION: 1. Distended gallbladder containing stones and/or sludge but without definite secondary evidence of acute cholecystitis. 2. No biliary ductal dilatation or evidence of choledocholithiasis identified. Laboratory Results WBC 15.43 10^3/uL (3.29-11.43) H 11/18/23 09:47 RBC 4.57 10^6/uL (3.85-5.65) 11/18/23 09:47 Hgb 14.10 g/dL (11.27-16.99) 11/18/23 09:47 Hct 41.6 % (36-47) 11/18/23 09:47 MCV 91.0 fl (85-98) 11/18/23 09:47 MCH 30.9 pg (27-33) 11/18/23 09:47 MCHC 33.9 g/dL (30-55) 11/18/23 09:47 RDW 13.9 % (12.1-15.1) 11/18/23 09:47 Plt Count 177 10^3/cmm (157-399) 11/18/23 09:47 MPV 10.8 fL (7.4-10.4) H 11/18/23 09:47 Neut % (Auto) 82.5 % 11/18/23 09:47 Lymph % (Auto) 12.8 % 11/18/23 09:47 Martin % (Auto) 3.7 % 11/18/23 09:47 Eos % (Auto) 0.2 % 11/18/23 09:47 Baso % (Auto) 0.3 % 11/18/23 09:47 Neut # (Auto) 12.73 10^3/uL (1.8-7.7) H 11/18/23 09:47 Lymph # (Auto) 2.0 10^3/uL (0.8-4.8) 11/18/23 09:47 Martin # (Auto) 0.6 10^3/uL (0.2-0.9) 11/18/23 09:47 Eos # (Auto) 0.0 10^3/uL (0.0-0.8) 11/18/23 09:47 Baso # (Auto) 0.1 10^3/uL (0.0-0.1) 11/18/23 09:47 Nucleated RBC % (auto) 0 % 11/18/23 09:47 Nucleated RBCs # 0.0 /100WBC 11/18/23 09:47 Specimen Type Arterial 11/18/23 10:10 Sample Site Brachial, left 11/18/23 10:10 ABG pH 7.41 (7.35-7.45) 11/18/23 10:10 ABG pCO2 34.8 mmHg (35-45) L 11/18/23 10:10 ABG pO2 66.4 mmHg (80.0-100.0) L 11/18/23 10:10 ABG PO2/FiO2 Ratio 316 11/18/23 10:10 ABG HCO3 21.9 mmol/L (22-26) L 11/18/23 10:10 ABG O2 Saturation 93.6 11/18/23 10:10 ABG Base Excess -2.3 mmol/L (-2.0-2.0) L 11/18/23 10:10 William Test Pos 11/18/23 10:10 A-a O2 Gradient 5.2 mmHg (5-10) 11/18/23 10:10 Hematocrit 39.3 % (37-47) 11/18/23 10:10 Hgb O2 Saturation 92.1 % (95-100) L 11/18/23 10:10 Carboxyhemoglobin 0.5 %THgb (0.4-20.1) 11/18/23 10:10 Methemoglobin 1.1 % (0.4-1.5) 11/18/23 10:10 Total Hemoglobin 12.8 g/dL (12-16) 11/18/23 10:10 Sodium 135.0 mmol/L (131-143) 11/18/23 10:10 Potassium 2.6 mmol/L (3.5-5.0) L 11/18/23 10:10 Glucose 159.0 mg/dL (70-115) H 11/18/23 10:10 Ionized Calcium 1.1 mmol/L (1.1-1.4) 11/18/23 10:10 O2 Delivery Device Room air 11/18/23 10:10 FiO2 21.0 % 11/18/23 10:10 Partner Integration Planner ID Timi 11/18/23 10:10 Sodium 132 mmol/L (136-145) L 11/18/23 09:47 Potassium 3.3 mmol/L (3.5-5.1) L 11/18/23 09:47 Chloride 89 mmol/L (98-107) L 11/18/23 09:47 Carbon Dioxide 22 mmol/L (22-29) 11/18/23 09:47 Anion Gap 24.3 (5-19) H 11/18/23 09:47 BUN 51 mg/dL (8-23) H 11/18/23 09:47 Creatinine 3.4 mg/dL (0.5-0.9) H 11/18/23 09:47 GFR Calculation 13.4 mL/min (90-130) L 11/18/23 09:47 Glucose 175 mg/dL (65-115) H 11/18/23 09:47 Calculated Osmolality 292 mOsm/kg (285-295) 11/18/23 09:47 Lactic Acid 3.6 mmol/L (0.5-2.2) H 11/18/23 09:47 Calcium 9.8 mg/dL (8.5-10.5) 11/18/23 09:47 Iron 25 ug/dL (37-145) L 11/18/23 09:47 TIBC 299 mcg/dl 11/18/23 09:47 % Saturation 8.3 % (20-50) L 11/18/23 09:47 Unsat Iron Binding 274 ug/dL (112-347) 11/18/23 09:47 Total Bilirubin 1.0 mg/dL (0.15-1.2) 11/18/23 09:47 AST 92 U/L (0-32) H 11/18/23 09:47 ALT 86 U/L (0-33) H 11/18/23 09:47 Alkaline Phosphatase 222 U/L (35-105) H 11/18/23 09:47 Creatine Kinase 131 U/L (26-192) 11/18/23 09:47 Troponin T Baseline 75 ng/L (0-10) H 11/18/23 09:47 Troponin T 120 Minute 51.31 ng/L (0-10) H 11/18/23 12:02 Delta Troponin T -23.69 ABS# (0-10) L 11/18/23 12:02 NT-Pro-B Natriuret Pep 172 pg/mL (0-125) H 11/18/23 09:47 Total Protein 7.5 g/dL (6.6-8.7) 11/18/23 09:47 Albumin 4.9 g/dL (3.5-5.2) 11/18/23 09:47 Globulin 2.6 g/dL (1.3-4.6) 11/18/23 09:47 Lipase 63 U/L (13-60) H 11/18/23 09:47 25-OH Vitamin D Total 25 ng/mL (30-100) L 11/18/23 09:47 Procalcitonin 5.58 ng/mL (0-0.5) H 11/18/23 09:47 Urine Color Dark yellow (Yellow) A 11/18/23 10:56 Urine Appearance Turbid (CLEAR) A 11/18/23 10:56 Urine pH 5.0 (5-7) 11/18/23 10:56 Ur Specific Marine 1.022 (1.005-1.030) 11/18/23 10:56 Urine Protein 2+ (Negative) A 11/18/23 10:56 Urine Glucose (UA) Negative (Normal) 11/18/23 10:56 Urine Ketones Trace (Negative) 11/18/23 10:56 Urine Blood Trace (Negative) A 11/18/23 10:56 Urine Nitrate Negative (Negative) 11/18/23 10:56 Urine Bilirubin 1+ (Negative) H 11/18/23 10:56 Urine Urobilinogen 1.0 mg/dL (Negative) 11/18/23 10:56 Ur Leukocyte Esterase 1+ (Negative) A 11/18/23 10:56 Urine RBC 3-5 /hpf (0-2) 11/18/23 10:56 Urine WBC 11-20 /hpf (0-5) H 11/18/23 10:56 Ur Squamous Epith Cells 6-10 /hpf (0-5) 11/18/23 10:56 Amorphous Sediment Not Reportable 11/18/23 10:56 Urine Bacteria 4+ /hpf (NONE) H 11/18/23 10:56 Hyaline Casts 41.35 /lpf 11/18/23 10:56 Serum Ketones Negative (Negative) 11/18/23 09:47 All radiology interpretation(s) finalized by discharge Discharge Plan Discharge Patient Disposition: Admitted As Inpatient Admit Provider: Fabian Pineda Clinical Impression: Sepsis, Acute renal failure, History of laryngeal cancer, Abnormal gall bladder diagnostic imaging, Cystitis Condition: Stable Coding Level of Care Code ED Vegetable Worker for Shayna De La Paz
--- NOTE | 2023-11-18 09:50 | ECG_ITS ---
[facility] Test Date: 2023-11-18 Pat Name: Ruth Shen Department: Room: Gender: Female Quill Buncher And Sorter: : 1955 Requested By: Dewey Davis Order Number: [id number] Delilah MD: Cecil Smith M.D. Measurements Intervals [place] Rate: 80 P: 78 DE: 194 QRS: 60 QRSD: 98 T: -17 QT: 405 QTc: 468 Interpretive Statements SINUS RHYTHM ST DEVIATION AND MODERATE T-WAVE ABNORMALITY, CONSIDER ANTEROLATERAL ISCHEMIA [-0.1+ mV T-WAVE IN V3-V6] Compared to ECG 10/30/2023 23:08:17 T-wave abnormality now present Possible ischemia now present Sinus bradycardia no longer present Electronically Signed On 11-18-2023 11:46:33 CDT by Cecil Smith M.D. [id number]
[2023-11-18 09:54] LABS: Basophils # 0.1 10^3/uL (0.0-0.1); Basophils % 0.3 %; Eosinophils % 0.2 %; Hematocrit 41.6 % (36-47); Lymphocytes % 12.8 %; Mean Corpuscular HGB Conc 33.9 g/dL (30-55); Mean Corpuscular Hemoglobin 30.9 pg (27-33); Mean Platelet Volume 10.8 fL (7.4-10.4); Monocytes # 0.6 10^3/uL (0.2-0.9); Monocytes % 3.7 %; Neutrophils # 12.73 10^3/uL (1.8-7.7); Neutrophils % 82.5 %; Nucleated Red Blood Cells % 0 %; Platelet Count 177 10^3/cmm (157-399); Red Blood Count 4.57 10^6/uL (3.85-5.65); Red Cell Distribution Width 13.9 % (12.1-15.1); White Blood Count 15.43 10^3/uL (3.29-11.43)
[2023-11-18] MEDS: sodium chloride 0.9% 1,632.93 ML 1632.93 ML IV (10:00)
[2023-11-18 10:06] LABS: Ketone (Acetest) Serum Negative (Negative)
[2023-11-18 10:14] LABS: Lactic Sepsis W/Reflex 3.6 mmol/L (0.5-2.2)
[2023-11-18 10:16] LABS: Alanine Aminotransferase 86 U/L (0-33); Albumin Level 4.9 g/dL (3.5-5.2); Alkaline Phosphatase 222 U/L (35-105); Anion Gap 24.3 (5-19); Aspartate Amino Transferase 92 U/L (0-32); Blood Urea Nitrogen 51 mg/dL (8-23); Calcium 9.8 mg/dL (8.5-10.5); Carbon Dioxide 22 mmol/L (22-29); Chloride 89 mmol/L (98-107); Creatine Phosphokinase 131 U/L (26-192); Creatinine Clr Calc Pharmacy 13.6481; Globulin 2.6 g/dL (1.3-4.6); Glomerular Filtration Rate 13.4 mL/min (90-130); Glucose 175 mg/dL (65-115); Lipase 63 U/L (13-60); Osmolality Calculated 292 mOsm/kg (285-295); Potassium 3.3 mmol/L (3.5-5.1); Sodium 132 mmol/L (136-145); Total Protein 7.5 g/dL (6.6-8.7); Troponin(5th) Baseline 75 ng/L (0-10)
[2023-11-18 10:21] LABS: ABG PCO2 34.8 mmHg (35-45); ABG PH Result 7.41 (7.35-7.45); Alveolar-Arterial Oxygen Gradi 5.2 mmHg (5-10); Arterial Blood Gas Hematocrit 39.3 % (37-47); Base Excess ABG -2.3 mmol/L (-2.0-2.0); Blood Gas Allen Test Pos; Blood Gas Operator Identificat WALCI; Blood Gas Sample Site Brachial, left; Blood Gas Sample Type Arterial; Carboxyhemoglobin 0.5 %THgb (0.4-20.1); HCO3 ABG 21.9 mmol/L (22-26); HGB O2 Sat 92.1 % (95-100); Ionized Calcium Level - ABG 1.1 mmol/L (1.1-1.4); Methemoglobin 1.1 % (0.4-1.5); Oxygen Device ROOM AIR; Oxygen Saturation ABG 93.6; PO2 ABG 66.4 mmHg (80.0-100.0); PO2 FiO2 Ratio Arterial Blood 316; Potassium Level - ABG 2.6 mmol/L (3.5-5.0); Total Hemoglobin 12.8 g/dL (12-16)
--- NOTE | 2023-11-18 10:24 | PC.PHAR ---
JEANA OMER IS FAXING MED LIST 11/18/23 10:15AM
--- NOTE | 2023-11-18 10:46 | PC.PHAR ---
PT IS AT [facility]-NO AM MEDS GIVEN PER ANDRE
--- NOTE | 2023-11-18 10:57 | CTR_ITS ---
PROCEDURE INFORMATION: Exam: CT Abdomen And Pelvis Without Contrast Exam date and time: 11/18/2023 11:20 AM Age: 67 years old Clinical indication: Other: Low blood pressure; Additional info: Abdominal pain TECHNIQUE: Imaging protocol: Computed tomography of the abdomen and pelvis without contrast. Total images: 196 Radiation optimization: All CT scans at this facility use at least one of these dose optimization techniques: automated exposure control; mA and/or kV adjustment per patient size (includes targeted exams where dose is matched to clinical indication); or iterative reconstruction. COMPARISON: CT abdomen pelvis wo con [id number] 10/30/2023 2:02 PM RADIATION DOSE METRICS: Total DLP (mGy-cm): 533.91 FINDINGS: Limitations: Visualization in the lower pelvis is limited due to streak artifact arising from orthopedic hardware. Lungs: Imaged lung bases demonstrate bibasilar densities consistent with atelectasis and/or scarring. Coronary arteries: Coronary artery atherosclerosis is present. Liver: Unremarkable. Gallbladder and biliary ducts: The gallbladder is moderately distended and contains increased attenuation dependently which may represent noncalcified stones or sludge. No pericholecystic fluid or inflammatory stranding is identified. No dilatation of the extrahepatic biliary duct is identified. Pancreas: Mild pancreatic atrophy without pancreatic ductal dilatation. Spleen: Unremarkable. Adrenal glands: Thickening of the left adrenal gland is noted with preservation of adreniform contour. The right adrenal gland is unremarkable. Kidneys and ureters: No hydronephrosis of either kidney. No calculus identified within the kidneys or ureters. Stomach and bowel: No bowel obstruction identified. Appendix: The appendix is not definitely identified, but there are no pericecal inflammatory changes identified to specifically suggest acute appendicitis. Intraperitoneal space: No significant volume of free fluid identified. Vasculature: No abdominal aortic aneurysm identified. Lymph nodes: No adenopathy noted. Urinary bladder: A Daly catheter is noted within the urinary bladder which is not significantly distended. However the bladder is not well visualized due to the streak artifact. Reproductive: Unremarkable as visualized. Bones/joints: Assessment of the distal ureters and the urinary bladder is significantly limited by streak artifact from the bilateral hip replacements. Incompletely healed bilateral sacral insufficiency fracture again noted. There is slight deformity of the right superior pubic ramus without a definite acute fracture line. Periprosthetic fracture of the left acetabulum again noted similar to previous. Fracture deformity of the left superior and inferior pubic rami without complete healing are noted at this time. Chronic deformity of the left parasymphyseal pubis also again noted. Soft tissues: No acute subcutaneous abnormality identified. CT/CT abdomen pelvis wo con [id number] IMPRESSION: 1. Moderate gallbladder distension with suspected cholelithiasis or sludge. Cholecystitis cannot be excluded. Gallbladder ultrasound or nuclear hepatobiliary scan may be beneficial. 2. Periprosthetic fracture of the left acetabulum, bilateral sacral insufficiency fractures, left superior and inferior pubic rami fractures are again noted. 3. No acute obstructive uropathy identified. COMMENTS: Please note that lack of IV contrast limits both the sensitivity, and the specificity, of the examination, particularly as regards focal lesions in the solid organs.
--- NOTE | 2023-11-18 11:00 | XRR_ITS ---
PROCEDURE INFORMATION: Exam: XR Chest Exam date and time: 11/18/2023 11:04 AM Age: 67 years old Clinical indication: Cough and dyspnea; Prior surgery; Surgery date: 6+ months; Surgery type: Trach; Patient HX: History of throat cancer; Additional info: Dyspnea/cough TECHNIQUE: Imaging protocol: Radiologic exam of the chest. Views: 1 view. Total images: 1 COMPARISON: CR (CHEST, ) 10/30/2023 12:20 PM FINDINGS: Lungs: shallow lung volumes. No focal consolidation evident. Pleural spaces: No pleural effusion identified. Heart/Mediastinum: Cardiomediastinal silhouette appears similar to 08/15/2023. Bones/joints: No acute osseous abnormality identified. XR/XR chest 1V portable [id number] IMPRESSION: No acute cardiopulmonary abnormality identified.
[2023-11-18 11:32] LABS: Charge for UA Resulting for Rev
[2023-11-18 11:35] LABS: Bilirubin Urine 1+ (Negative); Blood Urine Trace (Negative); Glucose Urine UA Negative (Normal); Ketones Urine Trace (Negative); Leukocyte Esterase Urine 1+ (Negative); Nitrate Urine Negative (Negative); Protein Urine 2+ (Negative); Specific Gravity, Urine 1.022 (1.005-1.030); Urine Appearance Turbid (CLEAR); Urine Color Dark Yellow (Yellow)
[2023-11-18 11:37] LABS: Bacteria Urine 4+ /hpf; Hyaline Casts Urine 41.35 /lpf
[2023-11-18 11:39] LABS: Reflex Lactate Order REFLEX LACTIC ORDERD
[2023-11-18 11:46] LABS: Add Urine Culture? Yes
[2023-11-18] MEDS: piperacillin-tazobactam 3.375 GM in sodium chloride 0.9% (plus) 50 ML IV ×2 (11:46→22:50)
--- NOTE | 2023-11-18 11:46 | ECG_ITS ---
[facility] Test Date: 2023-11-18 Pat Name: Ruth Shen Department: Room: Gender: Female Associate Director: : 1955 Requested By: Dewey Davis Order Number: [id number] Delilah MD: Cecil Smith M.D. Measurements Intervals [place] Rate: 69 P: 76 PA: 217 QRS: 73 QRSD: 96 T: 29 QT: 408 QTc: 437 Interpretive Statements SINUS RHYTHM WITH FIRST DEGREE AV BLOCK LOW QRS VOLTAGE IN EXTREMITY LEADS [QRS DEFLECTION < 0.5 mV IN LIMB LEADS] Compared to ECG 11/18/2023 09:50:18 First degree AV block now present Low QRS voltage now present T-wave abnormality no longer present Possible ischemia no longer present Electronically Signed On 11-18-2023 11:56:53 CDT by Cecil Smith M.D. [id number]
[2023-11-18 12:03] LABS: NT Pro B Type Natriuretic Pept 172 pg/mL (0-125)
--- NOTE | 2023-11-18 12:22 | US_ITS ---
WS: [id number] ABDOMINAL ULTRASOUND LIMITED REASON FOR VISIT: cholelithiasis TECHNIQUE: Grayscale and Doppler ultrasound examination of the abdomen. FINDINGS: Pancreas: No pancreatic mass Abdominal aorta and IVC: Normal Liver: Liver measures 14.6 cm in length. Normal echotexture with no focal lesions identified. No intr ahepatic bile duct dilatation. Normal portal venous blood flow. Gallbladder: Gallbladder wall is mildly thickened. Gallbladder is moderately distended. There are not ed again noted to be echogenic masslike areas in the gallbladder. These have the appearance of gallbl adder sludge which cannot be confirmed since the patient cannot be moved into a decubitus to see if t he abnormality shifts to a dependent position. Likely there are gallbladder stones however again this cannot be confirmed since the patient cannot be put in a decubitus position. Right kidney: Right kidney measures 7.4 cm x 4.4 cm x 3.3 cm. Right kidney cortex measures 0.9 cm. Th ere is no hydronephrosis, mass, or calculus. No ascites. US/US gall bladder [id number] IMPRESSION: Current examination appears similar to the ultrasound done 10/31/2023. Likely cholelithiasis and bile stasis concretions with gallbladder hydrops. Not able to confirm since patient cannot be turned into the decubitus position. No bile duct dilatation identified. Normal biliary scan 08/18/2023.
[2023-11-18 12:29] LABS: Troponin 5 2HR 51.31 ng/L (0-10)
[2023-11-18 12:31] LABS: Troponin 5 2HR Delta -23.69 ABS# (0-10)
[2023-11-18] MEDS: norepinephrine 4 MG/250 ML BAG 7.5 MG IV (12:38)
--- NOTE | 2023-11-18 13:19 | P.HP_ITS ---
Providers/Chief Complaint 2 Chief Complaint: hypotension History of Present Illness Ruth Shen is a 67 year old female skilled nursing resident with past medical history of hypertension, hyperlipidemia, laryngeal cancer post lobectomy with stoma in place, type 2 diabetes mellitus, CKD with recent baseline creatinine of around 2.4, recent pubic ramus fracture, sacral insufficiency, periprosthetic fracture around left prosthetic hip joint with multiple admissions within last 3 months was brought into the hospital today via EMS because of generalized weakness which has been getting worse over last 5 days along with painful and burning micturition. Patient denies any nausea, vomiting, abdominal pain, diarrhea, difficulty in breathing. She states she eats by mouth and denies any cough during eating. She states she is able to maintain her hydration. In the ER she was found to be hypotensive. She continued to remain hypotensive even after getting fluid bolus she was started on Levophed at 2 after which her mean artery pressure improved to more than 65 mmHg. Examination in ICU patient is awake and alert, looks dehydrated. Denies any complaints. Saturating well on room air. Review of Systems 2 General: Reports: 10 or more systems reviewed and unremarkable except in HPI and below Const: Denies: fever(s), chills, body aches, change in appetite, change in weight, malaise, night sweats, diaphoresis, change in sleep pattern, daytime sleepiness or snoring Eyes: Denies: change in vision, blurry vision, photophobia, eye discomfort or eye discharge ENMT: Denies: throat pain, enlarged tonsils, hoarseness, mouth pain, oral sores, dry mouth, tinnitus, nasal congestion or post nasal drip Card: Denies: chest pain, palpitations, irregular heart rhythm, edema, swelling of feet/ankles, lightheadedness, syncope, pre-syncope, dyspnea on exertion, orthopnea, leg pain with exertion or acrocyanosis Resp: Denies: dyspnea, productive cough, non-productive cough, wheezing, stridor, pain on inspiration, change in phlegm color, hemoptysis or chest congestion GI: Denies: abdominal pain, nausea, vomiting, hematemesis, coffee ground emesis, dysphagia, heartburn, diarrhea, constipation, bloating, GI cramping, change in bowel habits, pain on defecation, hematochezia or melena : Denies: flank pain, dysuria, urinary frequency, urinary urgency, urinary hesitancy, nocturia or hematuria Musc: Denies: neck pain, back pain, extremity pain, joint pain, joint swelling, joint redness, joint stiffness or limited range of motion Neuro: Denies: headache(s), numbness in extremities, weakness in extremities, sensory changes, lack of coordination, difficulty walking, frequent falls, dizziness, vertigo, confusion, Slurred speech present, difficulty communicating thoughts or seizure-like activity Psych: Denies: anxiety, depression, mood swings, panic attacks, hopelessness or irritability Endo: Denies: polyuria, polydipsia, tired all the time, cold intolerance, excessive sweating, flushing or heat intolerance Meet/Lymph: Denies: easy bruising or easy bleeding All/Imm: Denies: tongue swelling, facial swelling or acute wheezing Medications/Allergies Home Medications Medication Instructions Recorded Confirmed Last Taken Type buspirone 10 mg tablet 10 mg PO BID 08/15/23 11/18/23 11/17/23 History omeprazole 40 mg capsule,delayed 40 mg PO DAILY 08/15/23 11/18/23 11/17/23 History release alprazolam 0.25 mg tablet (Xanax) 0.25 mg PO BID Anxiety 08/18/23 11/18/23 11/17/23 History polyethylene glycol 3350 17 gram 17 g PO DAILY #14 ea 08/23/23 11/18/23 11/17/23 Rx oral powder packet sennosides 8.6 mg-docusate sodium 2 tab PO BID #10 tabs 08/23/23 11/18/23 11/17/23 Rx 50 mg tablet (Stool Softener-Laxative) fluoxetine 20 mg capsule 20 mg PO DAILY #30 caps 11/01/23 11/18/23 11/17/23 Rx insulin glargine 100 unit/mL 10 unit (0.1 mL) SUBCUT DAILY #10 11/01/23 11/18/23 11/17/23 Rx subcutaneous solution (Lantus mL U-100 Insulin) metoprolol tartrate 25 mg tablet 12.5 mg (1/2 x 25 mg) PO 11/01/23 11/18/23 11/17/23 Rx BID@0900,2100 #30 tabs oxycodone 5 mg tablet 5 mg PO Q6H PRN Moderate Pain 11/18/23 11/18/23 Unknown History sertraline 50 mg tablet 50 mg PO DAILY 11/18/23 11/18/23 11/17/23 History vitamin B complex-zinc 3.6 15 ml PO TID 11/18/23 11/18/23 11/17/23 History mg-manganese 0.75 mg/15 mL oral liquid (Eldertonic) Allergies Allergy/AdvReac Type Severity Reaction Status Date / Time No Known Allergies Allergy Verified 08/15/23 20:47 PFSH Acute 2 PFSH: Medical History (Updated 11/18/23 @ 15:54 by Fabian Pineda MD) Transaminitis Hypertension Type 2 diabetes mellitus CKD (chronic kidney disease) Constipation Visual hallucination Sacral insufficiency fracture Dehydration Altered mental status Pubic ramus fracture Periprosthetic fracture around internal prosthetic left hip joint Acute cholecystitis Ruled out Encephalopathy acute Urinary tract infection History of hyperlipidemia Laryngeal cancer Surgical History History of left hip replacement History of laryngectomy Family History Sister CAD (coronary artery disease) Social History Smoking and tobacco/nicotine status: former use of tobacco/nicotine Alcohol intake: never Substance/Drug Use: never Vitals/I&O/Wt Last Vital Signs Temp 97.6 F 11/18/23 09:16 Pulse 124 H 11/18/23 12:40 Resp 13 11/18/23 12:40 BP 112/73 11/18/23 12:55 Weight last 48 hrs Weight 54.431 kg Physical Exam 2 Narrative: General: No acute distress, AO x3, dehydrated HEENT: PERRLA, pupils bilaterally equal and reactive Chest: Normal vesicular breath sounds, no added sounds, equal good air entry bilaterally CVS: S1-S2 regular, no murmurs, no tachycardia, no gallops, no rubs Abdomen: Soft, nontender, no organomegaly, bowel sounds present Neuro: No focal deficits, no facial deformity, AO x3, power 5/5 in all limbs Urinary Catheter Management: Daly: Cath Placed During This Visit: yes Urinary Catheter Date of Insertion: 11/18/23 Quick SOFA Score: Respiratory Rate: 18 Blood Pressure: 112/73 [place] Coma Scale: 15 qSOFA Score: 0 If qSOFA score 2 or greater, continue: PaO2/FiO2 Ratio (mmHg): 316 Blood Pressure Mean: 86 Norepinephrine Current Rate (?g/kg/min): 2 Bilirubin (mg/dl): 1.0 Platelets (x10?/ml): 177 Creatinine (mg/dl): 3.4 SOFA Score: 7 Evaluation: Current stage of sepsis: septic shock Sepsis stage criteria used: [facility] Sep-1 and Sepsis-3 Crystalloid fluids: 30 mL/kg crystalloid fluids ordered and initiated within 3 hours Blood cultures ordered: Yes Possible source: genitourinary Focused Exam: Vital signs: Temp Pulse Resp BP 11/18/23 12:55 112/73 11/18/23 12:40 124 H 13 104/65 11/18/23 12:30 78 14 98/56 11/18/23 12:15 65 14 97/57 11/18/23 12:00 70 17 90/56 11/18/23 11:50 67 19 H 100/65 11/18/23 11:15 70 13 91/55 11/18/23 11:00 71 14 95/55 11/18/23 10:45 81 14 78/55 11/18/23 10:30 71 8 L 98/71 11/18/23 09:16 97.6 F 83 13 80/60 Date exam was performed: 11/18/23 Time exam was performed: 16:05 2 Sepsis Screen No Definite Risk 11/18/23 12:55 Respiratory Rate 18 breaths/min (12 - 18) 11/18/23 15:15 Blood Pressure 112/73 mmHg 11/18/23 12:55 [place] Coma Scale Score 15 11/18/23 14:13 Quick SOFA Score 0 11/18/23 15:55 SOFA Score: 2 ABG PO2/FiO2 Ratio 316 11/18/23 10:10 [place] Coma Scale Score 15 11/18/23 14:13 Blood Pressure Mean 86 mmHg 11/18/23 12:55 Norepinephrine Current Rate 2 11/18/23 13:20 Total Bilirubin 1.0 mg/dL (0.15-1.2) 11/18/23 09:47 Platelet Count 177 10^3/cmm (157-399) 11/18/23 09:47 Creatinine 3.4 mg/dL (0.5-0.9) H 11/18/23 09:47 SOFA Score 7 11/18/23 15:55 Data 11/18/23 09:47 11/18/23 09:47 Micro: Microbiology 11/18/23 09:49 Blood Culture - Preliminary Blood SPECIMEN COLLECTED 11/18/23 09:47 Blood Culture - Preliminary Blood SPECIMEN COLLECTED A&P Assessment and plan (1) Shock: Most likely in setting of severe sepsis along with dehydration. Keep mean artery pressure 65. Wean Levophed accordingly. Continue with maintenance hydration at 50 cc/h. (2) Sepsis: SIRS: Tachycardic, hypotension, Leukocytosis Source: Cystitis End organ damage: Acute kidney injury Lactic acid elevated Patient did receive full 30 mL/kg BW. Continue with normal saline at 50 cc/h. Monitor blood pressures. Keep mean artery pressure 65 mmHg. Blood culture, urine culture, MRSA swab, procalcitonin, urine Legionella, bacterial antigen. For now continue with IV vancomycin and Zosyn. Will discontinue vancomycin if MRSA swab negative. De-escalate antibiotics as per culture results. (3) Cystitis: Complaining of dysuria. Appreciate urinalysis. Follow-up urine culture. Daly placed in the ER. Monitor urine output. (4) Acute kidney injury superimposed on CKD: Do not have baseline. Labs going back only few months. It seems his baseline creatinine is around 2.4. Currently 3.4 with elevation of BUN, hyponatremia and hypokalemia. Most likely in setting of dehydration from poor oral intake. Received IV fluid bolus in the ER. Continue with NS at 50 cc/h. 40 mg of oral potassium supplementation. Repeat BMP daily. Strict input charting, daily weights. Daly catheterization for now. Medical reconciliation done for nephrotoxic drugs. CT on pelvis negative for obstructive nephropathy. (5) Hyponatremia: (6) Hypokalemia: (7) CKD (chronic kidney disease): (8) Type 2 diabetes mellitus: Recent A1c of around 8.2 Insulin sliding scale at low-dose protocol. At home on Lantus 10 units nightly. Will monitor insulin requirement next 24 hours and start Lantus accordingly. (9) Hypertension: Goal blood pressure less than 140/90 mmHg. Currently blood pressures soft. Takes metoprolol 12.5 mg twice daily at home. Currently on hold because of hypotension (10) Elevated lactic acid level: (11) Transaminitis: In setting of abnormal gallbladder imaging. In past there have been concerns for cholecystitis for which HIDA scan was done which was reported normal. Repeat gallbladder ultrasound today again shows possibility of choledocholithiasis, gallbladder duct not visualized. Given persistent transaminitis, persistent abnormality on imaging will plan for MRCP. Hepatitis panel negative. (12) Abnormal gall bladder diagnostic imaging: Plan CODE STATUS: Discussed in detail with the patient. Granddaughter Ms. saavedra will be the DPOA. Full code. Restart diet as per skilled nursing. Lovenox for DVT prophylaxis Protonix for PUD prophylaxis Phone number for family member not present to the chart currently. Will try to call skilled nursing to get the number and call the family member accordingly. Attestations 2 Medical Necessity Statement*: Admission 1 and 2 midnights for management of shock in setting of dehydration, sepsis from UTI in a patient with history of laryngeal cancer post laryngectomy, stoma in place Critical Care Time: The high probability of a clinically significant, sudden or life threatening deterioration of the patient's [cardiac, ID, renal] system(s) required my full and direct attention, intervention and personal management. The critical care time is as shown. This time is in addition to time spent performing any reported procedures but includes the following: [x] Data and vital sign review and interpretation [x] Patient assessment, examination and intervention [x] Documentation [x] Medication orders and management Critical Care Time (min): 70 Coding Level of Care Code Critical Care >/= 30 minutes Critical care time (in minutes): 70 The high probability of a clinically significant, sudden or life threatening deterioration, as referenced in this documentation, required my full and direct attention, intervention and personal management. The critical care time shown is in addition to time spent performing any reported separately billable procedures and includes the following: [x] Data and vital sign review and interpretation [x ] Patient assessment, examination and intervention [x] Medication orders and management [x] Patient/Family updates as able [x] Care Coordination and Documentation. Other Coding Information This patient has a high probability of clinically significant, sudden or life threatening deterioration of the patient's (neurological/pulmonary/cardiac/renal/ID/endocrine) systems required my full, direct attention, the highest level of physician preparedness for urgent intervention and personal management. I managed/supervised life or organ supporting interventions that required frequent physician assessment. I devoted my full attention in the ICU to the direct care of this patient for the period of time indicated above. Time I spent with family or surrogate(s) is included only if the patient was incapable of providing necessary information or participating in decision making. This time includes the following services provided: Telemetry review Hemodynamic interpretation, assessment and management Review and interpretation of CXR Review and interpretation of lab values Review and interpretation of microbiologic data and culture results Review of medications and administration Review and interpretation of Nutrition requirements and management Discussion of management with other consultants and services Clinical update to family members Diagnoses CKD (chronic kidney disease) N18.9 Acute kidney injury superimposed on CKD N17.9; N18.9 Shock R57.9 Hyponatremia E87.1 Hypokalemia E87.6 Type 2 diabetes mellitus E11.9 Hypertension I10 Elevated lactic acid level R79.89 Transaminitis R74.01 Abnormal gall bladder diagnostic imaging R93.2 Cystitis N30.90 Sepsis A41.9
[2023-11-18 13:54] LABS: Procalcitonin 5.58 ng/mL (0-0.5)
--- NOTE | 2023-11-18 13:57 | MRR_ITS ---
PROCEDURE INFORMATION: Exam: MR Abdomen Without Contrast Exam date and time: 11/18/2023 3:57 PM Age: 67 years old Clinical indication: Condition or disease; Gallbladder condition; Cholecystitis; Prior surgery; Surgery date: 6+ months; Surgery type: Hips; Additional info: Cholelithiasis, transminitis, cholecystitis not R/O TECHNIQUE: Imaging protocol: Magnetic resonance imaging of the abdomen without contrast. Total images: 443 COMPARISON: CT abdomen pelvis con [id number] 11/18/2023 11:20 AM FINDINGS: Limitations: Motion artifact. Liver: Liver is homogeneous Gallbladder and biliary ducts: The gallbladder is distended and contains layering material consistent with stones or sludge. Gallbladder wall does not appear thickened. There is no intrahepatic biliary ductal dilatation. The extrahepatic bile duct is not significantly dilated measuring 5 mm, and there is no intraductal filling defect identified to indicate choledocholithiasis. Pancreas: No pancreatic ductal dilatation evident. No acute abnormality of the pancreas is noted. Spleen: Spleen is homogeneous Adrenal glands: No adrenal enlargement. Kidneys and ureters: No hydronephrosis of either kidney. Stomach and bowel: Visualized stomach and intestines are unremarkable. Intraperitoneal space: No free fluid. Vasculature: The abdominal aorta is of normal caliber. Lymph nodes: No enlarged nodes. Bones/joints: Unremarkable. Soft tissues: Unremarkable. MR/MR MRCP [id number] IMPRESSION: 1. Distended gallbladder containing stones and/or sludge but without definite secondary evidence of acute cholecystitis. 2. No biliary ductal dilatation or evidence of choledocholithiasis identified.
[2023-11-18] MEDS: sodium chloride 0.9% 1,000 ML 50 ML IV (14:29)
[2023-11-18 14:40] LABS: Iron 25 ug/dL (37-145); Percent Saturation 8.3 % (20-50); Total Iron Binding Capacity 299 mcg/dl; Unsaturated Iron Binding 274 ug/dL (112-347)
[2023-11-18] MEDS: vancomycin 1,000 MG in sodium chloride 0.9% 250 ML 250 MG IV (14:51)
[2023-11-18] MEDS: enoxaparin 40 mg/0.4 mL Syringe SUBCUT (14:52)
--- NOTE | 2023-11-18 15:46 | ECG_ITS ---
[facility] Test Date: 2023-11-18 Pat Name: Ruth Shen Department: Room: [facility]08 Gender: Female Assistant Restaurant General Manager: : 1955 Requested By: Dewey Davis Order Number: [id number] Delilah MD: Cecil Smith M.D. Measurements Intervals [place] Rate: 65 P: 51 NE: 206 QRS: 76 QRSD: 88 T: 269 QT: 406 QTc: 424 Interpretive Statements SINUS RHYTHM LOW QRS VOLTAGE [QRS DEFLECTION < 0.5/1.0 mV IN LIMB/CHEST LEADS] ABNORMAL QRS-T ANGLE [QRS-T AXIS DIFFERENCE > 60] Compared to ECG 11/18/2023 11:36:08 First degree AV block no longer present Electronically Signed On 11-18-2023 18:37:32 CDT by Cecil Smith M.D. [id number]
[2023-11-18 16:07] LABS: Potassium, Radom Urine 32 mmol/L; Urine Creatinine 170 mg/dL (28-217); Urine Random Chloride 22 mmol/L; Urine Random Sodium 20 mmol/L
[2023-11-18 16:34] LABS: 25 Hydroxy Vitamin D 25 ng/mL (30-100)
[2023-11-18 17:20] LABS: Eosinophil Urine No Eosinophils Seen
[2023-11-18] MEDS: potassium chloride ER 20 mEq Tablet 40 MEQ PO (17:21)
[2023-11-18] MEDS: ALPRAZolam 0.5 mg Tablet 0.25 MG PO (17:21)
[2023-11-18] MEDS: BuSPIRONE 10 mg Tablet PO (17:22)
[2023-11-18] MEDS: sennosides-docusate Tablet 2 TAB PO (17:22)
[2023-11-18 17:45] LABS: Troponin 5 6HR 58.42 ng/L (0-10)
[2023-11-18 17:46] LABS: Lactic Acid level (Lactate) 3.6 mmol/L (0.5-2.2)
[2023-11-18 18:03] LABS: Troponin 5 6HR Delta -16.58 ng/L (0-12)
[2023-11-18] MEDS: ergocalciferol (vitamin D2) 50,000 Unit Capsule 50000 UNIT PO (19:30)
--- NOTE | 2023-11-18 19:40 | PC.NURSE ---
Levophed off upon arrival to shift at 1900.
[2023-11-18] MEDS: albuterol 2.5 mg/3 mL Neb INHALATION (20:12)
[2023-11-19] VITALS (20 sets, daily range): BP systolic 111–160; BP diastolic 67–101; PULSE 55–95; RESP 0–18; TEMP 35–36.7; O2SAT 93–100; BMI 20.6
[2023-11-19 03:31] LABS: Basophils % 0.3 %; Eosinophils # 0.1 10^3/uL (0.0-0.8); Eosinophils % 1.4 %; Hematocrit 32.9 % (36-47); Lymphocytes # 1.6 10^3/uL (0.8-4.8); Lymphocytes % 22.8 %; Mean Corpuscular HGB Conc 33.7 g/dL (30-55); Mean Corpuscular Volume 91.9 fl (85-98); Mean Platelet Volume 11.1 fL (7.4-10.4); Monocytes # 0.3 10^3/uL (0.2-0.9); Monocytes % 3.6 %; Neutrophils # 4.96 10^3/uL (1.8-7.7); Neutrophils % 71.5 %; Nucleated Red Blood Cells % 0 %; Platelet Count 127 10^3/cmm (157-399); Red Blood Count 3.58 10^6/uL (3.85-5.65); Red Cell Distribution Width 13.8 % (12.1-15.1); White Blood Count 6.94 10^3/uL (3.29-11.43)
[2023-11-19 03:53] LABS: Chol HDL Ratio 2.37 mg/dL (0.0-4.40); Cholesterol 123 mg/dL (0-200); HDL Cholesterol 52 mg/dL (60-100); LDL Cholesterol Calculated 34 mg/dL (50-129); Triglycerides 187 mg/dL (0-150); VLDL Cholestrol Calculation 37 mg/dL (0-30)
[2023-11-19 03:54] LABS: Alanine Aminotransferase 64 U/L (0-33); Albumin Level 3.8 g/dL (3.5-5.2); Alkaline Phosphatase 154 U/L (35-105); Anion Gap 17.4 (5-19); Aspartate Amino Transferase 66 U/L (0-32); Blood Urea Nitrogen 43 mg/dL (8-23); Calcium 8.4 mg/dL (8.5-10.5); Carbon Dioxide 22 mmol/L (22-29); Chloride 103 mmol/L (98-107); Creatinine Clr Calc Pharmacy 19.4119; Globulin 2.5 g/dL (1.3-4.6); Glomerular Filtration Rate 20.1 mL/min (90-130); Glucose 132 mg/dL (65-115); Magnesium 2.2 mg/dL (1.7-2.3); Osmolality Calculated 301 mOsm/kg (285-295); Phosphorus 2.8 mg/dL (2.5-4.5); Potassium 3.4 mmol/L (3.5-5.1); Sodium 139 mmol/L (136-145); Total Bilirubin 0.7 mg/dL (0.15-1.2); Total Protein 6.3 g/dL (6.6-8.7)
[2023-11-19 04:28] LABS: Folate Level 13.2 ng/mL (4.8-37.3)
[2023-11-19] MEDS: albuterol 2.5 mg/3 mL Neb INHALATION ×3 (07:49→20:44)
[2023-11-19] MEDS: BuSPIRONE 10 mg Tablet PO ×2 (09:18→17:28)
[2023-11-19] MEDS: polyethylene glycol 3350 Pkt 17 gm PO (09:18)
[2023-11-19] MEDS: pantoprazole DR 40 mg Tablet PO (09:18)
[2023-11-19] MEDS: sennosides-docusate Tablet 2 TAB PO ×2 (09:18→17:29)
[2023-11-19] MEDS: ALPRAZolam 0.5 mg Tablet 0.25 MG PO ×2 (09:19→17:28)
[2023-11-19] MEDS: fluoxetine 20 mg Capsule PO (09:21)
[2023-11-19] MEDS: sodium chloride 0.9% 1,000 ML 50 ML IV (10:21)
[2023-11-19] MEDS: potassium chloride ER 20 mEq Tablet 40 MEQ PO ×2 (10:22→10:23)
[2023-11-19] MEDS: iron sucrose 200 MG in sodium chloride 0.9% (100 ml) 100 ML 220 MG IV (10:23)
--- NOTE | 2023-11-19 11:20 | PC.NURSE ---
assisted up in bed at this time o2 per trach collar in use verified diet and restarted food assist eating , noted temp to be low and c/o being cold warming blanket applied , no distress noted at this time
[2023-11-19] MEDS: piperacillin-tazobactam 3.375 GM in sodium chloride 0.9% (plus) 50 ML IV ×2 (11:23→22:33)
[2023-11-19 13:10] LABS: Glucose Point of Care 107 mg/dL (70-110)
[2023-11-19 13:27] LABS: Lactic Sepsis W/Reflex 1.7 mmol/L (0.5-2.2)
[2023-11-19] MEDS: enoxaparin 30 mg/0.3 mL Syringe SUBCUT (13:29)
--- NOTE | 2023-11-19 13:55 | PM.PN ---
Subjective Subjective: No acute events overnight. Patient has remained hemodynamically stable and afebrile. Today morning awake and alert. Denies any nausea, vomiting, headache. Blood pressures have remained stable. Patient has remained off Levophed. Denies any chest pain. States she is feeling okay. Vitals/I&O/Wt Last Vital Signs Temp 96.9 F L 11/19/23 12:00 Pulse 81 11/19/23 12:00 Resp 0 L 11/19/23 12:00 BP 111/67 11/19/23 12:00 Pulse Ox 100 11/19/23 09:00 O2 Del Method CAG 11/19/23 07:50 O2 Flow Rate 8 11/19/23 07:50 FiO2 30 11/19/23 07:50 11/18/23 11/19/23 11/19/23 22:59 06:59 14:59 Intake Total 297.75 / 2347.75 50 / 2397.75 1323.333 / 1323.333 Output Total 400 / 400 Balance 297.75 / 2347.75 -350 / 1997.75 1323.333 / 1323.333 Weight last 48 hrs Weight 54.476 kg Weight 54.476 kg Weight 54.975 kg Weight 54.431 kg Physical Exam Narrative: General: No acute distress, AO x3, HEENT: PERRLA, pupils bilaterally equal and reactive Chest: Normal vesicular breath sounds, no added sounds, equal good air entry bilaterally CVS: S1-S2 regular, no murmurs, no tachycardia, no gallops, no rubs Abdomen: Soft, nontender, no organomegaly, bowel sounds present Neuro: No focal deficits, no facial deformity, AO x3, power 5/5 in all limbs Urinary Catheter Management: Daly: Cath Placed During This Visit: yes Reason for Continuing Indwelling Catheter: Accurate Measurement of Urinary Output in Critically Ill Patients Urinary Catheter Date of Insertion: 11/18/23 Data 11/19/23 03:23 11/19/23 03:23 Micro: Microbiology 11/18/23 10:56 Urine Culture - Preliminary Urine,Clean Catch 11/18/23 09:49 Blood Culture - Preliminary Blood NEGATIVE TO DATE 11/18/23 09:47 Blood Culture - Preliminary Blood NEGATIVE TO DATE 11/18/23 15:34 Bacterial Antigens - Final Urine Kidney A&P Assessment and plan (1) Sepsis: SIRS: Tachycardic, hypotension, Leukocytosis Source: Cystitis End organ damage: Acute kidney injury Lactic acid elevated. Resolved today. Patient did receive full 30 mL/kg BW. Continue with normal saline at 50 cc/h. Monitor blood pressures. Keep mean artery pressure 65 mmHg. Blood culture, urine culture, MRSA swab, procalcitonin, urine Legionella, bacterial antigen. For now continue with IV vancomycin and Zosyn. Will discontinue vancomycin if MRSA swab negative. De-escalate antibiotics as per culture results. (2) Cystitis: Complaining of dysuria. Appreciate urinalysis. Follow-up urine culture, blood culture. Daly placed in the ER. Monitor urine output. (3) Acute kidney injury superimposed on CKD: Do not have baseline. Labs going back only few months. It seems his baseline creatinine is around 2.4. Acute kidney injury most likely in setting of dehydration. Resolved. Creatinine back down to 2.4. BUN improving. Hypokalemia improving. Hyponatremia resolved. Continue with NS at 50 cc/h. 40 mg of oral potassium supplementation. Repeat BMP daily. Strict input charting, daily weights. Daly catheterization. Medical reconciliation done for nephrotoxic drugs. CT on pelvis negative for obstructive nephropathy. (4) Shock: Resolved. Most likely in setting of severe sepsis along with dehydration. Levophed weaned off. Continue keeping mean arterial pressure over 65. Repeat lactate level. Continue with maintenance hydration at 50 cc/h. (5) Hyponatremia: (6) Hypokalemia: (7) Type 2 diabetes mellitus: Recent A1c of around 8.2 Insulin sliding scale at low-dose protocol. At home on Lantus 10 units nightly. Will monitor insulin requirement next 24 hours and start Lantus accordingly. Not require insulin for now since admission. (8) Hypertension: Goal blood pressure less than 140/90 mmHg. Blood pressures improving. Takes metoprolol 12.5 mg twice daily at home. Continue to monitor blood pressures. Restart antihypertensive depending on goal blood pressures. (9) CKD (chronic kidney disease): (10) Elevated lactic acid level: (11) Transaminitis: In setting of abnormal gallbladder imaging. In past there have been concerns for cholecystitis for which HIDA scan was done which was reported normal. Repeat gallbladder ultrasound today again shows possibility of choledocholithiasis, gallbladder duct not visualized. Given persistent transaminitis, persistent abnormality MRCP was done which shows cholelithiasis negative for choledocholithiasis. Hepatitis panel negative. Continue to monitor daily. (12) Abnormal gall bladder diagnostic imaging: (13) Sacral insufficiency fracture: On physical therapy at [facility]. Appreciate vitamin D levels. Received vitamin D2 50,000 units monitoring yesterday. Continue with D3 5000 units daily. Plan CODE STATUS: Discussed in detail with the patient. Granddaughter Ms. saavedra will be the DPOA. Full code. Restart diet as per [facility]. Lovenox for DVT prophylaxis Pro[facility]UD [facility] Phone number for family member not present to the chart currently. Will try to call [facility] to get the number and call the family member accordingly. Attestations Medical Necessity Statement*: Requires further hospitalization and management of shock in setting of dehydration, sepsis in setting of UTI, resolving ANTHONY on CKD, hypotension the patient has history of hypertension Diagnoses Sepsis A41.9 Cystitis N30.90 Acute kidney injury superimposed on CKD N17.9; N18.9 Shock R57.9 Hyponatremia E87.1 Hypokalemia E87.6 Type 2 diabetes mellitus E11.9 Hypertension I10 CKD (chronic kidney disease) N18.9 Elevated lactic acid level R79.89 Transaminitis R74.01 Abnormal gall bladder diagnostic imaging R93.2 Sacral insufficiency fracture M84.48XA
[2023-11-19 17:27] LABS: Glucose Point of Care 149 mg/dL (70-110)
[2023-11-19] MEDS: insulin lispro 100 unit/1 mL SUBCUT (17:27)
[2023-11-19] MEDS: morphine 4 mg/mL SDV 1 mL 2 MG IVP (20:20)
[2023-11-19 20:37] LABS: Glucose Point of Care 118 mg/dL (70-110)
[2023-11-20] VITALS (13 sets, daily range): BP systolic 124–146; BP diastolic 70–93; PULSE 70–93; RESP 15–18; TEMP 36.4–36.6; O2SAT 94–99
[2023-11-20 04:25] LABS: Basophils % 0.6 %; Eosinophils # 0.1 10^3/uL (0.0-0.8); Eosinophils % 1.5 %; Hematocrit 30.5 % (36-47); Lymphocytes # 1.5 10^3/uL (0.8-4.8); Lymphocytes % 30.5 %; Mean Corpuscular HGB Conc 32.5 g/dL (30-55); Mean Corpuscular Hemoglobin 30.7 pg (27-33); Mean Corpuscular Volume 94.7 fl (85-98); Mean Platelet Volume 10.8 fL (7.4-10.4); Monocytes # 0.2 10^3/uL (0.2-0.9); Monocytes % 3.5 %; Neutrophils # 3.04 10^3/uL (1.8-7.7); Neutrophils % 63.5 %; Nucleated Red Blood Cells % 0 %; Platelet Count 112 10^3/cmm (157-399); Red Blood Count 3.22 10^6/uL (3.85-5.65); Red Cell Distribution Width 14.1 % (12.1-15.1); White Blood Count 4.79 10^3/uL (3.29-11.43)
[2023-11-20 04:40] LABS: Alanine Aminotransferase 67 U/L (0-33); Albumin Level 3.6 g/dL (3.5-5.2); Alkaline Phosphatase 144 U/L (35-105); Anion Gap 19.1 (5-19); Aspartate Amino Transferase 81 U/L (0-32); Blood Urea Nitrogen 30 mg/dL (8-23); Calcium 8.2 mg/dL (8.5-10.5); Carbon Dioxide 19 mmol/L (22-29); Chloride 106 mmol/L (98-107); Creatinine Clr Calc Pharmacy 25.7704; Globulin 2.3 g/dL (1.3-4.6); Glomerular Filtration Rate 26.3 mL/min (90-130); Glucose 109 mg/dL (65-115); Osmolality Calculated 299 mOsm/kg (285-295); Potassium 3.1 mmol/L (3.5-5.1); Sodium 141 mmol/L (136-145); Total Bilirubin 0.6 mg/dL (0.15-1.2); Total Protein 5.9 g/dL (6.6-8.7)
[2023-11-20] MEDS: sodium chloride 0.9% 1,000 ML 50 ML IV (05:56)
--- NOTE | 2023-11-20 05:56 | PC.NURSE ---
Called to pt room, pt states the CAG was making it to where she couldn't breathe. Pt was telling this nurse to cut the elastic off to remove it. CAG removed w/O2 sat 94% at this time. Pt then stuck her finger down her trach opening. Rt notified of pt refusal to wear CAG.
[2023-11-20] MEDS: lidocaine 1% 5 ML in potassium chloride premix 100 ML 52.5 ML IV (06:16)
[2023-11-20] MEDS: morphine 4 mg/mL SDV 1 mL 2 MG IVP ×2 (06:16→12:44)
[2023-11-20 06:26] LABS: Glucose Point of Care 97 mg/dL (70-110)
[2023-11-20] MEDS: albuterol 2.5 mg/3 mL Neb INHALATION ×3 (08:22→20:44)
[2023-11-20] MEDS: fluoxetine 20 mg Capsule PO (09:16)
[2023-11-20] MEDS: sennosides-docusate Tablet 2 TAB PO ×2 (09:16→17:29)
[2023-11-20] MEDS: cholecalciferol (vitamin D3) 5,000 unit Tablet 5000 UNIT PO (09:16)
[2023-11-20] MEDS: ALPRAZolam 0.5 mg Tablet 0.25 MG PO ×2 (09:16→17:29)
[2023-11-20] MEDS: acetaminophen 325 mg Tablet 650 MG PO (09:16)
[2023-11-20] MEDS: BuSPIRONE 10 mg Tablet PO ×2 (09:16→17:29)
[2023-11-20] MEDS: pantoprazole DR 40 mg Tablet PO (09:16)
[2023-11-20] MEDS: polyethylene glycol 3350 Pkt 17 gm PO (09:17)
[2023-11-20] MEDS: iron sucrose 200 MG in sodium chloride 0.9% (100 ml) 100 ML 220 MG IV (09:17)
[2023-11-20 10:25] LABS: Glucose Point of Care 102 mg/dL (70-110)
[2023-11-20] MEDS: piperacillin-tazobactam 3.375 GM in sodium chloride 0.9% (plus) 50 ML IV ×2 (11:32→19:29)
--- NOTE | 2023-11-20 12:46 | P.CONIM_ITS ---
Providers/Reason For Consult 2 Consulting Physician/Specialty*: General surgery Reason for Consult*: PEG tube Attending Physician: Fabian Pineda MD History of Present Illness History of Present Illness Ruth Shen is a 67 year old female with history of laryngeal cancer status post laryngectomy. Patient has had multiple hospitalizations due to dehydration and acidosis. She has been unable to eat a consistent amount of food since her intervention due to difficulty swallowing and lack of appetite. I have been asked to proceed with a PEG tube placement to support long-term nutrition. Upon my examination I explained both the possible PEG tube placement to the patient, she is very adamant that she does not want any tube placed and she does not want to have enteral nutrition through a PEG tube. Review of Systems 2 General: Reports: ROS unobtainable due to medical condition (Patient speaks with a small translation probe, only short sentences ) Medications/Allergies Home Medications Medication Instructions Recorded Confirmed Last Taken Type buspirone 10 mg tablet 10 mg PO BID 08/15/23 11/18/23 11/17/23 History omeprazole 40 mg capsule,delayed 40 mg PO DAILY 08/15/23 11/18/23 11/17/23 History release alprazolam 0.25 mg tablet (Xanax) 0.25 mg PO BID Anxiety 08/18/23 11/18/23 11/17/23 History polyethylene glycol 3350 17 gram 17 g PO DAILY #14 ea 08/23/23 11/18/23 11/17/23 Rx oral powder packet sennosides 8.6 mg-docusate sodium 2 tab PO BID #10 tabs 08/23/23 11/18/23 11/17/23 Rx 50 mg tablet (Stool Softener-Laxative) fluoxetine 20 mg capsule 20 mg PO DAILY #30 caps 11/01/23 11/18/23 11/17/23 Rx insulin glargine 100 unit/mL 10 unit (0.1 mL) SUBCUT DAILY #10 11/01/23 11/18/23 11/17/23 Rx subcutaneous solution (Lantus mL U-100 Insulin) metoprolol tartrate 25 mg tablet 12.5 mg (1/2 x 25 mg) PO 11/01/23 11/18/23 11/17/23 Rx BID@0900,2100 #30 tabs oxycodone 5 mg tablet 5 mg PO Q6H PRN Moderate Pain 11/18/23 11/18/23 Unknown History sertraline 50 mg tablet 50 mg PO DAILY 11/18/23 11/18/23 11/17/23 History vitamin B complex-zinc 3.6 15 ml PO TID 11/18/23 11/18/23 11/17/23 History mg-manganese 0.75 mg/15 mL oral liquid (Eldertonic) Allergies Allergy/AdvReac Type Severity Reaction Status Date / Time No Known Allergies Allergy Verified 08/15/23 20:47 Current Medications Generic Name Dose Route Start Last Admin Trade Name Freq PRN Reason Stop Dose Admin Acetaminophen 650 mg 11/18/23 14:11 11/20/23 09:16 Acetaminophen 325 Mg Tablet PO 650 mg Q6H PRN Administration Mild/Mod Pain Or Temp >/= 101 Albuterol Sulfate 2.5 mg 11/19/23 08:00 11/20/23 08:22 Albuterol 2.5 Mg/3 Ml Neb INHALATION 2.5 mg TID.RESP REYMUNDO Administration Alprazolam 0.25 mg 11/18/23 18:00 11/20/23 09:16 Alprazolam 0.5 Mg Tablet PO 0.25 mg BID REYMUNDO Administration Buspirone HCl 10 mg 11/18/23 18:00 11/20/23 09:16 Buspirone 10 Mg Tablet PO 10 mg BID REYMUNDO Administration Enoxaparin Sodium 30 mg 11/19/23 14:30 11/19/23 13:29 Enoxaparin 30 Mg/0.3 Ml Syringe SUBCUT 30 mg Q24H REYMUNDO Administration Fluoxetine HCl 20 mg 11/19/23 09:00 11/20/23 09:16 Fluoxetine 20 Mg Capsule PO 20 mg DAILY REYMUNDO Administration Sodium Chloride 1,000 mls @ 50 mls/hr 11/18/23 13:15 11/20/23 05:56 Sodium Chloride 0.9% IV 50 mls/hr .Q20H REYMUNDO Administration Iron Sucrose 200 mg/ Sodium 110 mls @ 220 mls/hr 11/19/23 10:15 11/20/23 10:17 Chloride IV 11/23/23 10:44 Infused Q24H REYMUNDO Infusion Insulin Human Lispro 0 unit 11/19/23 12:00 11/20/23 11:01 Insulin Lispro 100 Unit/1 Ml SUBCUT Not Given WM&BEDTIME REYMUNDO Protocol Morphine Sulfate 2 mg 11/18/23 14:11 11/20/23 12:44 Morphine 4 Mg/Ml Sdv 1 Ml IVP 2 mg Q4H PRN Administration SEVERE PAIN Pantoprazole Sodium 40 mg 11/19/23 09:00 11/20/23 09:[address] 40 Mg Tablet PO 40 mg DAILY REYMUNDO Administration Polyethylene Glycol 17 gm 11/19/23 09:00 11/20/23 09:17 Polyethylene Glycol 3350 Pkt 17 Gm PO 17 gm DAILY REYMUNDO Administration Senna/Docusate Sodium 2 tab 11/18/23 18:00 11/20/23 09:16 Sennosides-Docusate Tablet PO 2 tab BID REYMUNDO Administration Vitamin D 5,000 unit 11/19/23 09:00 11/20/23 09:16 Cholecalciferol (Vitamin D3) 5,000 Unit Tablet PO 5,000 unit DAILY REYMUNDO Administration PFSH Acute 2 PFSH: Medical History (Updated 11/19/23 @ 14:00 by Fabian Pineda MD) Sacral insufficiency fracture Transaminitis Hypertension Type 2 diabetes mellitus CKD (chronic kidney disease) Constipation Visual hallucination Dehydration Altered mental status Pubic ramus fracture Periprosthetic fracture around internal prosthetic left hip joint Acute cholecystitis Ruled out Encephalopathy acute Urinary tract infection History of hyperlipidemia Laryngeal cancer Surgical History History of left hip replacement History of laryngectomy Family History Sister CAD (coronary artery disease) Social History Smoking and tobacco/nicotine status: former use of tobacco/nicotine Alcohol intake: never Substance/Drug Use: never Vitals/I&O/Wt Last Vital Signs Temp 97.8 F 11/20/23 10:34 Pulse 82 11/20/23 10:34 Resp 15 11/20/23 10:34 BP 141/91 11/20/23 10:34 Pulse Ox 97 11/20/23 10:34 O2 Del Method Trach Collar 11/20/23 10:34 O2 Flow Rate 8 11/20/23 08:23 FiO2 30 11/20/23 08:23 11/19/23 11/20/23 11/20/23 22:59 06:59 14:59 Intake Total 70 / 7495.074 2813.292 / 2428.625 448.875 / 448.875 Output Total 850 / 850 Balance 70 / 1393.333 185.292 / 1578.625 448.875 / 448.875 Weight last 48 hrs Weight 136 lb 9.6 oz Weight 120 lb 1.6 oz Weight 120 lb 1.6 oz Weight 121 lb 3.2 oz Physical Exam 2 Narrative: Patient with a tracheostomy noted, abdomen soft nontender nondistended. Urinary Catheter Management: Daly: Cath Placed During This Visit: yes Reason for Continuing Indwelling Catheter: Other Urinary Catheter Date of Insertion: 11/18/23 Data 11/20/23 03:33 11/20/23 03:33 Micro: Microbiology 11/18/23 10:56 Urine Culture - Final Urine,Clean Catch 11/18/23 09:49 Blood Culture - Preliminary Blood NEGATIVE TO DATE 11/18/23 09:47 Blood Culture - Preliminary Blood NEGATIVE TO DATE A&P Assessment and plan (1) History of laryngeal cancer: Plan This a 67-year-old female with history of laryngectomy who require a PEG tube for long-term nutrition. At the time of my evaluation patient is not willing to proceed with PEG tube placement, I explained that without nutrition she will likely deteriorate and continue to present back to the hospital. Patient shows understanding but does not want to proceed with any additional surgical intervention at this time. Coding Level of Care Code 84365 Diagnoses History of laryngeal cancer Z85.21
--- NOTE | 2023-11-20 13:23 | PM.PN ---
Subjective Subjective: No acute events overnight. Today morning patient seen sitting comfortably in chair. States she is feeling better. Denies any nausea, vomiting, headache. Vitals/I&O/Wt Last Vital Signs Temp 97.8 F 11/20/23 10:34 Pulse 82 11/20/23 10:34 Resp 15 11/20/23 10:34 BP 141/91 11/20/23 10:34 Pulse Ox 97 11/20/23 10:34 O2 Del Method Trach Collar 11/20/23 10:34 O2 Flow Rate 8 11/20/23 08:23 FiO2 30 11/20/23 08:23 11/19/23 11/20/23 11/20/23 22:59 06:59 14:59 Intake Total 70 / 2780.832 1150.292 / 2428.625 448.875 / 448.875 Output Total 850 / 850 Balance 70 / 1393.333 185.292 / 1578.625 448.875 / 448.875 Weight last 48 hrs Weight 61.961 kg Weight 54.476 kg Weight 54.476 kg Weight 54.975 kg Physical Exam Narrative: General: No acute distress, AO x3, HEENT: PERRLA, pupils bilaterally equal and reactive Chest: Normal vesicular breath sounds, no added sounds, equal good air entry bilaterally CVS: S1-S2 regular, no murmurs, no tachycardia, no gallops, no rubs Abdomen: Soft, nontender, no organomegaly, bowel sounds present Neuro: No focal deficits, no facial deformity, AO x3, power 5/5 in all limbs Urinary Catheter Management: Daly: Cath Placed During This Visit: yes Reason for Continuing Indwelling Catheter: Other Urinary Catheter Date of Insertion: 11/18/23 Data 11/20/23 03:33 11/20/23 03:33 Micro: Microbiology 11/18/23 10:56 Urine Culture - Final Urine,Clean Catch 11/18/23 09:49 Blood Culture - Preliminary Blood NEGATIVE TO DATE 11/18/23 09:47 Blood Culture - Preliminary Blood NEGATIVE TO DATE A&P Assessment and plan (1) Sepsis: SIRS: Tachycardic, hypotension, Leukocytosis Source: Cystitis End organ damage: Acute kidney injury Lactic acid elevated. Resolved today. Patient did receive full 30 mL/kg BW. Continue with normal saline at 50 cc/h. Monitor blood pressures. Keep mean artery pressure 65 mmHg. Blood culture, urine culture, MRSA swab, procalcitonin, urine Legionella, bacterial antigen. For now continue with IV vancomycin and Zosyn. Will discontinue vancomycin if MRSA swab negative. De-escalate antibiotics as per culture results. (2) Cystitis: Complaining of dysuria. Appreciate urinalysis. Follow-up urine culture, blood culture. Daly placed in the ER. Monitor urine output. (3) Acute kidney injury superimposed on CKD: Do not have baseline. Labs going back only few months. It seems his baseline creatinine is around 2.4. Acute kidney injury most likely in setting of dehydration. Resolved. Creatinine back down to 2.4. BUN improving. Hypokalemia improving. Hyponatremia resolved. Continue with NS at 50 cc/h. 40 mg of oral potassium supplementation. Repeat BMP daily. Strict input charting, daily weights. Daly catheterization. Medical reconciliation done for nephrotoxic drugs. CT on pelvis negative for obstructive nephropathy. (4) Shock: Resolved. Most likely in setting of severe sepsis along with dehydration. Levophed weaned off. Continue keeping mean arterial pressure over 65. Repeat lactate level. Continue with maintenance hydration at 50 cc/h. (5) Hyponatremia: (6) Hypokalemia: (7) Type 2 diabetes mellitus: Recent A1c of around 8.2 Insulin sliding scale at low-dose protocol. At home on Lantus 10 units nightly. Will monitor insulin requirement next 24 hours and start Lantus accordingly. Not require insulin for now since admission. (8) Hypertension: Goal blood pressure less than 140/90 mmHg. Blood pressures improving. Takes metoprolol 12.5 mg twice daily at home. Continue to monitor blood pressures. Restart antihypertensive depending on goal blood pressures. (9) CKD (chronic kidney disease): (10) Elevated lactic acid level: (11) Transaminitis: In setting of abnormal gallbladder imaging. In past there have been concerns for cholecystitis for which HIDA scan was done which was reported normal. Repeat gallbladder ultrasound today again shows possibility of choledocholithiasis, gallbladder duct not visualized. Given persistent transaminitis, persistent abnormality MRCP was done which shows cholelithiasis negative for choledocholithiasis. Hepatitis panel negative. Continue to monitor daily. (12) Abnormal gall bladder diagnostic imaging: (13) Sacral insufficiency fracture: On physical therapy at skilled nursing. Appreciate vitamin D levels. Received vitamin D2 50,000 units monitoring yesterday. Continue with D3 5000 units daily. Plan CODE STATUS: Discussed in detail with the patient. Granddaughter Ms. saavedra will be the DPOA. Full code. Restart diet as per skilled nursing. Lovenox for DVT prophylaxis Protonix for PUD prophylaxis Plan for the day: Continue to follow-up cultures. MRSA swab pending. For now continue with IV vancomycin and Zosyn to finish a 5-day course. Continue with IV hydration for now. Creatinine trending down to 1.9. 40 mg of oral potassium repleted. Will replete with 40 mill equivalents more. Repeat BMP in AM. Continue with IV iron supplementation. Hemoglobin stable. Discussed in detail with the patient regarding possible need of PEG tube placement as she has had recurrent admissions with dehydration, ANTHONY on CKD along with shock recently which is most likely because she is not able to maintain her level of hydration which is required by her body. She verbalized understanding and states she is agreeable. Will consult surgery for further recommendations. Phone number for family member not present to the chart currently. Will try to call skilled nursing to get the number and call the family member accordingly. Attestations Medical Necessity Statement*: Requires further hospitalization for management of sepsis in setting of UTI, dehydration because of poor oral intake, ANTHONY on CKD while PEG tube placement is planned Diagnoses Sepsis A41.9 Cystitis N30.90 Acute kidney injury superimposed on CKD N17.9; N18.9 Shock R57.9 Hyponatremia E87.1 Hypokalemia E87.6 Type 2 diabetes mellitus E11.9 Hypertension I10 CKD (chronic kidney disease) N18.9 Elevated lactic acid level R79.89 Transaminitis R74.01 Abnormal gall bladder diagnostic imaging R93.2 Sacral insufficiency fracture M84.48XA
[2023-11-20] MEDS: vancomycin 750 MG in sodium chloride 0.9% 250 ML 250 MG IV (15:28)
[2023-11-20] MEDS: enoxaparin 30 mg/0.3 mL Syringe SUBCUT (15:28)
[2023-11-20] MEDS: potassium chloride ER 20 mEq Tablet 40 MEQ PO (15:29)
[2023-11-20 16:47] LABS: Glucose Point of Care 147 mg/dL (70-110)
[2023-11-20] MEDS: insulin lispro 100 unit/1 mL SUBCUT (17:29)
[2023-11-20 20:27] LABS: Glucose Point of Care 105 mg/dL (70-110)
[2023-11-21] VITALS (12 sets, daily range): BP systolic 131–160; BP diastolic 79–98; PULSE 67–90; RESP 12–18; TEMP 36.3–36.6; O2SAT 3–98
[2023-11-21] MEDS: sodium chloride 0.9% 1,000 ML 50 ML IV (01:56)
[2023-11-21] MEDS: morphine 4 mg/mL SDV 1 mL 2 MG IVP ×2 (02:59→14:01)
[2023-11-21] MEDS: piperacillin-tazobactam 3.375 GM in sodium chloride 0.9% (plus) 50 ML IV ×2 (03:03→12:15)
[2023-11-21 04:20] LABS: Basophils % 0.4 %; Eosinophils # 0.1 10^3/uL (0.0-0.8); Eosinophils % 1.5 %; Lymphocytes # 1.3 10^3/uL (0.8-4.8); Lymphocytes % 24.7 %; Mean Corpuscular HGB Conc 32.5 g/dL (30-55); Mean Corpuscular Hemoglobin 30.8 pg (27-33); Mean Corpuscular Volume 94.7 fl (85-98); Mean Platelet Volume 11.4 fL (7.4-10.4); Monocytes # 0.2 10^3/uL (0.2-0.9); Monocytes % 4.1 %; Neutrophils # 3.76 10^3/uL (1.8-7.7); Neutrophils % 69.1 %; Nucleated Red Blood Cells % 0 %; Platelet Count 134 10^3/cmm (157-399); Red Cell Distribution Width 14.4 % (12.1-15.1); White Blood Count 5.43 10^3/uL (3.29-11.43)
[2023-11-21 04:42] LABS: Alanine Aminotransferase 72 U/L (0-33); Albumin Level 3.6 g/dL (3.5-5.2); Alkaline Phosphatase 154 U/L (35-105); Anion Gap 17.8 (5-19); Aspartate Amino Transferase 90 U/L (0-32); Blood Urea Nitrogen 21 mg/dL (8-23); Calcium 8.5 mg/dL (8.5-10.5); Carbon Dioxide 20 mmol/L (22-29); Chloride 103 mmol/L (98-107); Creatinine Clr Calc Pharmacy 32.6425; Globulin 2.6 g/dL (1.3-4.6); Glomerular Filtration Rate 34.5 mL/min (90-130); Glucose 124 mg/dL (65-115); Osmolality Calculated 288 mOsm/kg (285-295); Potassium 3.8 mmol/L (3.5-5.1); Sodium 137 mmol/L (136-145); Total Bilirubin 0.5 mg/dL (0.15-1.2); Total Protein 6.2 g/dL (6.6-8.7)
[2023-11-21 06:22] LABS: Glucose Point of Care 103 mg/dL (70-110)
[2023-11-21] MEDS: albuterol 2.5 mg/3 mL Neb INHALATION ×3 (07:39→20:30)
[2023-11-21] MEDS: cholecalciferol (vitamin D3) 5,000 unit Tablet 5000 UNIT PO (08:57)
[2023-11-21] MEDS: fluoxetine 20 mg Capsule PO (08:57)
[2023-11-21] MEDS: polyethylene glycol 3350 Pkt 17 gm PO (08:58)
[2023-11-21] MEDS: pantoprazole DR 40 mg Tablet PO (08:58)
[2023-11-21] MEDS: ALPRAZolam 0.5 mg Tablet 0.25 MG PO ×2 (08:58→16:49)
[2023-11-21] MEDS: sennosides-docusate Tablet 2 TAB PO ×2 (08:58→16:49)
[2023-11-21] MEDS: BuSPIRONE 10 mg Tablet PO ×2 (08:58→16:49)
[2023-11-21] MEDS: iron sucrose 200 MG in sodium chloride 0.9% (100 ml) 100 ML 220 MG IV (11:17)
[2023-11-21 11:52] LABS: Glucose Point of Care 128 mg/dL (70-110)
--- NOTE | 2023-11-21 12:11 | PC.SOCIAL ---
IMM Updated Updated pt on IMM. No questions voiced. Provided pt a copy. Initialed, dated, & timed a copy & placed in chart.
--- NOTE | 2023-11-21 15:32 | PM.DCS ---
Discharge Providers Date of Admission: 11/18/23 13:26 Date of Discharge: November 21, 2023 Attending Provider at Admission: Fabian Pineda MD Attending Provider at Discharge: Jesus Light Diagnoses at Discharge Discharge Diagnosis (1) Sepsis: Status: Acute (2) Cystitis: Status: Acute (3) Acute kidney injury superimposed on CKD: Status: Acute (4) Shock: Status: Acute (5) Hyponatremia: Status: Acute (6) Hypokalemia: Status: Acute (7) Type 2 diabetes mellitus: Status: Acute (8) Hypertension: Status: Acute (9) CKD (chronic kidney disease): Status: Chronic (10) Elevated lactic acid level: Status: Acute (11) Transaminitis: Status: Acute (12) Abnormal gall bladder diagnostic imaging: Status: Acute (13) Sacral insufficiency fracture: Status: Acute Reason for Visit Reason for Visit: hypotension Hospital Course Hospital Course Pleasant 67-year-old lady with a history of laryngeal cancer, status post laryngectomy, CKD, HTN, HLD, DM2, recent pubic ramus fracture, sacral insufficiency fracture, periprosthetic fracture around left hip joint, return to the hospital on 11/17 due to generalized weakness, dysuria, on presentation with dehydration, and shock, with suspected septic shock also from urinary tract infection, with superimposed ANTHONY, hyponatremia, hypokalemia, lactic acidosis, transaminitis, gallbladder imaging with cholelithiasis, with prior imaging with unremarkable HIDA in the past, gallbladder ultrasound with cholelithiasis, bile stasis, gallbladder hydrops. MRCP with distended gallbladder with stones and/or sludge but without definite secondary evidence of acute cholecystitis. No choledocholithiasis. She received fluid resuscitation, treated for urinary tract infection with Zosyn, vancomycin, urine culture eventually with mixed urogenital tomas. Preliminary blood cultures remaining negative. Shock gradually resolved. She was assessed to have poor oral intake likely contributing to recurrent dehydration and feeding tube option was discussed with her, including in consultation with surgery, however, she has considered the options and has declined feeding tube understanding associated risks of recurrent dehydration. Does not want to consider this option any further. Her renal function otherwise has been improving, ANTHONY appears to be resolving, creatinine gradually declining from 3.4 to lowest 1.5 today. Please reassess renal function. Follow-up for recovery after UTI, reassess electrolytes, sodium, potassium. As her blood glucose has been on the soft side, sometimes down to the low 100s, for now she is not continued on Lantus. Please reassess diabetes control. Please follow-up regarding iron deficiency anemia she is continuing on iron supplementation. With sacral insufficiency fracture she is continuing also on vitamin D. Please follow-up regarding multiple fractures. Follow-up regarding cholelithiasis. Physical Exam Narrative: Accompanied by her sister. Const: GENERAL APPEARANCE: cooperative ORIENTATION/CONSCIOUSNESS: Yes awake HENMT: COMMON NORMALS: oropharynx normal Neck/C-Spine: COMMON NORMALS: no JVD Resp: COMMON NORMALS: normal respiratory effort and clear to auscultation bilaterally AUSCULTATION: clear to auscultation bilaterally Cardio: COMMON NORMALS: no JVD, regular rhythm, S1 normal heart sound present, S2 normal heart sound present and No murmurs present (Cardio) RHYTHM: regular rhythm HEART SOUNDS: S1 normal heart sound present and S2 normal heart sound present GI: COMMON NORMALS: Normal to inspection, nondistended, normoactive bowel sounds present, Soft to palpation and non-tender PALPATION: Yes Soft to palpation Extremity: COMMON NORMALS: no joint enlargement and no pedal edema Neuro: COMMON NORMALS: moves all extremities Skin: COMMON NORMALS: no rashes or lesions noted GENERAL SKIN EXAM: no rashes or lesions noted Urinary Catheter Management: Daly: Cath Placed During This Visit: yes Reason for Continuing Indwelling Catheter: Other Urinary Catheter Date of Insertion: 11/18/23 Discharge Data Studies Completed and Pending Completed Studies During Hospitalization Category Date Time Status CT abdomen pelvis wo con [id number] Stat Cat Scan 11/18/23 10:57 Completed XR chest 1V portable [id number] Stat Exams 11/18/23 11:00 Completed MR MRCP [id number] Stat MRI 11/18/23 13:57 Completed US gall bladder [id number] Stat Ultrasound 11/18/23 12:22 Completed Pending at discharge Category Date Time Status Blood Culture Stat Lab 11/18/23 09:49 Results Complete Blood Count w/Auto AM LABS Lab 11/22/23 04:00 Ordered Comprehensive Metabolic Panel AM LABS Lab 11/22/23 04:00 Ordered MRSA [Methicillin Resistant S.aureu] Routine Lab 11/18/23 14:11 Ordered Vitamin D 1,25 Dihydroxy Stat Lab 11/18/23 09:47 Received Radiology Impressions Abdomen/Pelvis CT 11/18/23 10:57 IMPRESSION: 1. Moderate gallbladder distension with suspected cholelithiasis or sludge. Cholecystitis cannot be excluded. Gallbladder ultrasound or nuclear hepatobiliary scan may be beneficial. 2. Periprosthetic fracture of the left acetabulum, bilateral sacral insufficiency fractures, left superior and inferior pubic rami fractures are again noted. 3. No acute obstructive uropathy identified. COMMENTS: Please note that lack of IV contrast limits both the sensitivity, and the specificity, of the examination, particularly as regards focal lesions in the solid organs. Chest X-Ray 11/18/23 11:00 IMPRESSION: No acute cardiopulmonary abnormality identified. Gallbladder Ultrasound 11/18/23 12:22 IMPRESSION: Current examination appears similar to the ultrasound done 10/31/2023. Likely cholelithiasis and bile stasis concretions with gallbladder hydrops. Not able to confirm since patient cannot be turned into the decubitus position. No bile duct dilatation identified. Normal biliary scan 08/18/2023. Cholangiopancreatography MRI 11/18/23 13:57 IMPRESSION: 1. Distended gallbladder containing stones and/or sludge but without definite secondary evidence of acute cholecystitis. 2. No biliary ductal dilatation or evidence of choledocholithiasis identified. Laboratory Results WBC 5.43 10^3/uL (3.29-11.43) 11/21/23 02:57 RBC 3.80 10^6/uL (3.85-5.65) L 11/21/23 02:57 Hgb 11.70 g/dL (11.27-16.99) 11/21/23 02:57 Hct 36.0 % (36-47) 11/21/23 02:57 MCV 94.7 fl (85-98) 11/21/23 02:57 MCH 30.8 pg (27-33) 11/21/23 02:57 MCHC 32.5 g/dL (30-55) 11/21/23 02:57 RDW 14.4 % (12.1-15.1) 11/21/23 02:57 Plt Count 134 10^3/cmm (157-399) L 11/21/23 02:57 MPV 11.4 fL (7.4-10.4) H 11/21/23 02:57 Neut % (Auto) 69.1 % 11/21/23 02:57 Lymph % (Auto) 24.7 % 11/21/23 02:57 [place] % (Auto) 4.1 % 11/21/23 02:57 Eos % (Auto) 1.5 % 11/21/23 02:57 Baso % (Auto) 0.4 % 11/21/23 02:57 Neut # (Auto) 3.76 10^3/uL (1.8-7.7) 11/21/23 02:57 Lymph # (Auto) 1.3 10^3/uL (0.8-4.8) 11/21/23 02:57 [place] # (Auto) 0.2 10^3/uL (0.2-0.9) 11/21/23 02:57 Eos # (Auto) 0.1 10^3/uL (0.0-0.8) 11/21/23 02:57 Baso # (Auto) 0.0 10^3/uL (0.0-0.1) 11/21/23 02:57 Nucleated RBC % (auto) 0 % 11/21/23 02:57 Nucleated RBCs # 0.0 /100WBC 11/21/23 02:57 Specimen Type Arterial 11/18/23 10:10 Sample Site Brachial, left 11/18/23 10:10 ABG pH 7.41 (7.35-7.45) 11/18/23 10:10 ABG pCO2 34.8 mmHg (35-45) L 11/18/23 10:10 ABG pO2 66.4 mmHg (80.0-100.0) L 11/18/23 10:10 ABG PO2/FiO2 Ratio 316 11/18/23 10:10 ABG HCO3 21.9 mmol/L (22-26) L 11/18/23 10:10 ABG O2 Saturation 93.6 11/18/23 10:10 ABG Base Excess -2.3 mmol/L (-2.0-2.0) L 11/18/23 10:10 William Test Pos 11/18/23 10:10 A-a O2 Gradient 5.2 mmHg (5-10) 11/18/23 10:10 Hematocrit 39.3 % (37-47) 11/18/23 10:10 Hgb O2 Saturation 92.1 % (95-100) L 11/18/23 10:10 Carboxyhemoglobin 0.5 %THgb (0.4-20.1) 11/18/23 10:10 Methemoglobin 1.1 % (0.4-1.5) 11/18/23 10:10 Total Hemoglobin 12.8 g/dL (12-16) 11/18/23 10:10 Sodium 135.0 mmol/L (131-143) 11/18/23 10:10 Potassium 2.6 mmol/L (3.5-5.0) L 11/18/23 10:10 Glucose 159.0 mg/dL (70-115) H 11/18/23 10:10 Ionized Calcium 1.1 mmol/L (1.1-1.4) 11/18/23 10:10 O2 Delivery Device Room air 11/18/23 10:10 FiO2 21.0 % 11/18/23 10:10 Pediatric Nurse Practitioner ID [place] 11/18/23 10:10 Sodium 137 mmol/L (136-145) 11/21/23 02:57 Potassium 3.8 mmol/L (3.5-5.1) 11/21/23 02:57 Chloride 103 mmol/L (98-107) 11/21/23 02:57 Carbon Dioxide 20 mmol/L (22-29) L 11/21/23 02:57 Anion Gap 17.8 (5-19) 11/21/23 02:57 BUN 21 mg/dL (8-23) 11/21/23 02:57 Creatinine 1.5 mg/dL (0.5-0.9) H 11/21/23 02:57 GFR Calculation 34.5 mL/min (90-130) L 11/21/23 02:57 Glucose 124 mg/dL (65-115) H 11/21/23 02:57 POC Glucose 128 mg/dL (70-110) H 11/21/23 11:38 Calculated Osmolality 288 mOsm/kg (285-295) 11/21/23 02:57 Lactic Acid 1.7 mmol/L (0.5-2.2) 11/19/23 11:52 Lactic Acid (Sepsis) 3.6 mmol/L (0.5-2.2) H 11/18/23 17:03 Calcium 8.5 mg/dL (8.5-10.5) 11/21/23 02:57 Phosphorus 2.8 mg/dL (2.5-4.5) 11/19/23 03:23 Magnesium 2.2 mg/dL (1.7-2.3) 11/19/23 03:23 Iron 25 ug/dL (37-145) L 11/18/23 09:47 TIBC 299 mcg/dl 11/18/23 09:47 % Saturation 8.3 % (20-50) L 11/18/23 09:47 Unsat Iron Binding 274 ug/dL (112-347) 11/18/23 09:47 Total Bilirubin 0.5 mg/dL (0.15-1.2) 11/21/23 02:57 AST 90 U/L (0-32) H 11/21/23 02:57 ALT 72 U/L (0-33) H 11/21/23 02:57 Alkaline Phosphatase 154 U/L (35-105) H 11/21/23 02:57 Creatine Kinase 131 U/L (26-192) 11/18/23 09:47 Troponin T Baseline 75 ng/L (0-10) H 11/18/23 09:47 Troponin T 120 Minute 51.31 ng/L (0-10) H 11/18/23 12:02 Delta Troponin T -23.69 ABS# (0-10) L 11/18/23 12:02 Troponin T Hi Sens 6Hr 58.42 ng/L (0-10) H 11/18/23 17:03 Troponin T Hi Sens 6Hr Delta -16.58 ng/L (0-12) L 11/18/23 17:03 NT-Pro-B Natriuret Pep 172 pg/mL (0-125) H 11/18/23 09:47 Total Protein 6.2 g/dL (6.6-8.7) L 11/21/23 02:57 Albumin 3.6 g/dL (3.5-5.2) 11/21/23 02:57 Globulin 2.6 g/dL (1.3-4.6) 11/21/23 02:57 Triglycerides 187 mg/dL (0-150) H 11/19/23 03:23 Cholesterol 123 mg/dL (0-200) 11/19/23 03:23 LDL Cholesterol, Calc 34 mg/dL (50-129) L 11/19/23 03:23 Total VLDL Cholesterol 37 mg/dL (0-30) H 11/19/23 03:23 HDL Cholesterol 52 mg/dL (60-100) L 11/19/23 03:23 LDL/HDL Ratio Cancelled 11/19/23 03:23 Cholesterol/HDL Ratio 2.37 mg/dL (0.0-4.40) 11/19/23 03:23 Lipase 63 U/L (13-60) H 11/18/23 09:47 25-OH Vitamin D Total 25 ng/mL (30-100) L 11/18/23 09:47 Folate 13.2 ng/mL (4.8-37.3) 11/19/23 03:23 Procalcitonin 1.70 ng/mL (0-0.5) H 11/19/23 03:23 Urine Color Dark yellow (Yellow) A 11/18/23 10:56 Urine Appearance Turbid (CLEAR) A 11/18/23 10:56 Urine pH 5.0 (5-7) 11/18/23 10:56 Ur Specific [place] 1.022 (1.005-1.030) 11/18/23 10:56 Urine Protein 2+ (Negative) A 11/18/23 10:56 Urine Glucose (UA) Negative (Normal) 11/18/23 10:56 Urine Ketones Trace (Negative) 11/18/23 10:56 Urine Blood Trace (Negative) A 11/18/23 10:56 Urine Nitrate Negative (Negative) 11/18/23 10:56 Urine Bilirubin 1+ (Negative) H 11/18/23 10:56 Urine Urobilinogen 1.0 mg/dL (Negative) 11/18/23 10:56 Ur Leukocyte Esterase 1+ (Negative) A 11/18/23 10:56 Urine RBC 3-5 /hpf (0-2) 11/18/23 10:56 Urine WBC 11-20 /hpf (0-5) H 11/18/23 10:56 Ur Eosinophil Smear Not Reportable 11/18/23 15:34 Ur Squamous Epith Cells 6-10 /hpf (0-5) 11/18/23 10:56 Amorphous Sediment Not Reportable 11/18/23 10:56 Urine Bacteria 4+ /hpf (NONE) H 11/18/23 10:56 Hyaline Casts 41.35 /lpf 11/18/23 10:56 Urine Eosinophils No eosinophils seen 11/18/23 15:34 Ur Random Sodium 20 mmol/L 11/18/23 15:34 Ur Random Potassium 32 mmol/L 11/18/23 15:34 Ur Random Chloride 22 mmol/L 11/18/23 15:34 Urine Creatinine 170 mg/dL (28-217) 11/18/23 15:34 Serum Ketones Negative (Negative) 11/18/23 09:47 Vitals Last Vital Signs Temp 97.4 F L 11/21/23 12:00 Pulse 90 11/21/23 13:29 Resp 16 11/21/23 14:01 BP 160/98 11/21/23 12:00 Pulse Ox 3 L 11/21/23 13:36 O2 Del Method CAG 11/21/23 13:36 O2 Flow Rate 6 11/21/23 13:36 FiO2 28 11/21/23 13:36 Discharge Plan Discharge Patient Disposition: Xfer SNF Condition: Stable Prescriptions: New ciprofloxacin HCl 250 mg tablet 250 mg PO BID Qty: 2 0RF Humalog U-100 Insulin 100 unit/mL Solution See Rx Instructions .ROUTE .COMPLEX Qty: 10 0RF Rx Instructions: ACHS: Glucose: 141-180 - 2 units 181-220 - 3 221-260 - 4 261-300 - 5 301-350 - 6 351-400 - 7 >400 - 8 units ferrous sulfate 325 mg (65 mg iron) tablet 325 mg PO EVERY OTHER DAY Qty: 90 0RF cholecalciferol (vitamin D3) 125 mcg (5,000 unit) Tablet 5,000 unit PO DAILY Qty: 90 0RF Continued omeprazole 40 mg Capsule,Delayed Release(Dr/Ec) 40 mg PO DAILY buspirone 10 mg Tablet 10 mg PO BID sennosides-docusate sodium [Stool Softener-Laxative] 8.6-50 mg Tablet 2 tab PO BID Qty: 10 0RF polyethylene glycol 3350 17 gram Powder In Packet 17 g PO DAILY Qty: 14 0RF fluoxetine 20 mg Capsule 20 mg PO DAILY Qty: 30 0RF metoprolol tartrate 25 mg Tablet 12.5 mg PO BID@0900,2100 Qty: 30 0RF sertraline 50 mg tablet 50 mg PO DAILY Eldertonic 3.6 mg-0.75 mg /15 mL Liquid 15 ml PO TID oxycodone 5 mg tablet 5 mg PO Q6H PRN (Reason: Moderate Pain) Changed Xanax 0.25 mg tablet 0.25 mg PO BID PRN (Reason: Anxiety) Qty: 1 0RF Rx Instructions: Changed to as needed Discontinued insulin glargine [Lantus U-100 Insulin] 100 unit/mL Solution 10 unit SUBCUT DAILY Qty: 10 0RF Discharge Orders: Discharge Order (Routine); Ordered 11/21/23 Ordered By: Jesus Light Referrals: Primary, provider [Other] - 4-7 days [facility] [Outside] Patient Instructions: Opioid Safety Activity Restrictions/Additional Instructions: Follow-up with your primary doctor for reassessment after dehydration, shock, urinary infection, acute kidney injury, low sodium, low potassium levels. For now do not resume insulin Lantus at discharge. Continue reassessment of blood glucose. Continue mild sliding scale insulin. Follow-up with your primary doctor consideration of recurrent dehydration, inadequate oral nutrition, feeding tube was considered but as per discussion as you decided against pursuing this option. Discussed with your primary doctor in case you change your mind. Please have your primary provider also follow-up your gallbladder with incidentally seen gallstones. Follow-up regarding sacral insufficiency fracture. Continue vitamin D. Follow-up regarding iron deficiency anemia. Discharge Attestations Time Spent in Discharge Care*: greater than 30 min Quality Metrics Clinical Quality Measures [ No reported AMI, CVA or VTE this stay] Coding Level of Care Code 95874 Total time (in minutes) for Discharge: 45 Diagnoses Sepsis A41.9 Cystitis N30.90 Acute kidney injury superimposed on CKD N17.9; N18.9 Shock R57.9 Hyponatremia E87.1 Hypokalemia E87.6 Type 2 diabetes mellitus E11.9 Hypertension I10 CKD (chronic kidney disease) N18.9 Elevated lactic acid level R79.89 Transaminitis R74.01 Abnormal gall bladder diagnostic imaging R93.2 Sacral insufficiency fracture M84.48XA
[2023-11-23 13:39] LABS: Vit D 1,25 (Oh)2, Total 46 pg/mL (18-72); Vit D2 1,25 (Oh)2 <8 pg/mL; Vit D3 1,25 (Oh)2 46 pg/mL
== END 2023-11-21 22:30 | disposition skilled nursing facility (03) | DRG 871 ==
LOC: ER 12:47 → ICU 13:26 → MEDSURG 11-19 13:37
PROVIDERS: Admitting Provider Student in an Organized Health Care Education/Training Program; Emergency Provider Family Medicine; Visit Provider Internal Medicine
DX: A41.9 Sepsis, unspecified organism (principal); R65.21 Severe sepsis with septic shock; N17.9 Acute kidney failure, unspecified; E87.20 Acidosis, unspecified; E87.1 Hypo-osmolality and hyponatremia; E86.0 Dehydration; C32.9 Malignant neoplasm of larynx, unspecified; I12.9 Hypertensive chronic kidney disease with stage 1 through stage 4 chronic kidney disease, or unspecified chronic kidney disease; E11.22 Type 2 diabetes mellitus with diabetic chronic kidney disease; N18.9 Chronic kidney disease, unspecified; E78.5 Hyperlipidemia, unspecified; N30.90 Cystitis, unspecified without hematuria; Z96.642 Presence of left artificial hip joint; E87.6 Hypokalemia; R93.2 Abnormal findings on diagnostic imaging of liver and biliary tract; M84.48XD Pathological fracture, other site, subsequent encounter for fracture with routine healing; D50.9 Iron deficiency anemia, unspecified; Z79.4 Long term (current) use of insulin; Z90.02 Acquired absence of larynx; Z87.891 Personal history of nicotine dependence
CPT/HCPCS: 36415; 36416; 36600; 51702; 71045; 74176; 74181; 76705; 80051; 80053; 80061; 81003; 81015; 82009; 82306; 82330; 82436; 82550; 82570; 82652; 82746; 82805; 82962; 83540; 83550; 83605; 83690; 83735; 83880; 84100; 84133; 84145; 84300; 84484; 85025; 85999; 86403; 87040; 87086; 93005; 94640; 94664; 94799; 96365; 96366; 96367; 96372; 99291; J1650; J1756; J1815; J2270; J2543; J3370; J3480; J7030; J7050; J7613